=== PATIENT | female | born 1960 | race Caucasian/White ===

== ENCOUNTER 2016-10-13 15:24 | Emergency (ER) | payer OTHER ==
[~2016-10-13] VITALS: Ht 170.2 cm; Wt 65.0 kg
[~2016-10-13 15:24] MED LIST: LORTA5 PO
[2016-10-13 15:26] VITALS: BP 185/128; PULSE 102; RESP 15; TEMP 99; O2SAT 97
--- NOTE | 2016-10-13 15:31 | PD ---
Physical Exam Date Seen by Provider: Oct 13, 2016 Time Seen by Provider: 15:29 Narrative 55 yo female here for evaluation of generalize weakness. History of two admissions in [facility] and found to have pancreatic mass. per patient she takes meds and makes her better but not anymore. PCP sent her here. Has N/V/D. Has abdominal discomfort. Cannot eat much. lost 70 pounds. Going on for since April. Worsen past couple of days. Vitals are stable in triage. Awaiting bed placement. Data Data Last Documented VS Vital Signs Date Time Temp Pulse Resp B/P Pulse Ox O2 Delivery O2 Flow Rate FiO2 10/13/16 15:26 99.0 102 15 185/128 97 MDM Medical Record Reviewed: Yes Supervised Visit with VIANEY: No Mason Mae Oct 13, 2016 15:31
[2016-10-13] MEDS ORDERED: ZOFR8TAB PO (15:53)
[2016-10-13] MEDS ORDERED: OXYC-395 PO (15:53)
[2016-10-13] MEDS ORDERED: PROT40TA PO (15:53)
[2016-10-13] MEDS ORDERED: SODIUM CHLORIDE 0.9% FLUSH 10 ML FLUSH IV FLUSH PRN (16:00)
[2016-10-13] MEDS ORDERED: MORPHINE SULFATE 4 MG/ML INJ IV PUSH ONE (16:00)
[2016-10-13] MEDS ORDERED: ONDANSETRON HCL 4 MG/2 ML VIAL IVP ONE (16:00)
--- NOTE | 2016-10-13 16:23 | RADRPT ---
EXAM DATE/TIME: 10/13/2016 16:06 [facility] COMPARISON: No previous studies available for comparison. INDICATIONS : Epigastric pain for several months. MEDICAL HISTORY : None. SURGICAL HISTORY : None. ENCOUNTER: Initial ACUITY: 4 - 6 months PAIN SCORE: 6/10 LOCATION: Abdomen, upper quadrant. FINDINGS: A single view of the chest demonstrates the lungs to be symmetrically aerated without evidence of mas s, infiltrate or effusion. The cardiomediastinal contours are unremarkable. Osseous structures are intact. CONCLUSION: No acute disease. Gus Oneal MD on October 13, 2016 at 16:20 Board Certified Radiologist. This report was verified electronically.
--- NOTE | 2016-10-13 16:36 | PD ---
Data Data Last Documented VS Vital Signs Date Time Temp Pulse Resp B/P Pulse Ox O2 Delivery O2 Flow Rate FiO2 10/13/16 17:02 18 10/13/16 15:26 99.0 102 185/128 97 Orders Complete Blood Count With Diff (10/13/16 15:51) Comprehensive Metabolic Panel (10/13/16 15:51) Lipase (10/13/16 15:51) Lactic Acid (10/13/16 15:51) Prothrombin Time / Inr (Pt) (10/13/16 15:51) Act Partial Throm Time (Ptt) (10/13/16 15:51) Urinalysis - C+S If Indicated (10/13/16 15:51) Iv Access Insert/Monitor (10/13/16 15:51) Ecg Monitoring (10/13/16 15:51) Oximetry (10/13/16 15:51) Morphine Inj (Morphine Inj) (10/13/16 16:00) Ondansetron Inj (Zofran Inj) (10/13/16 16:00) Sodium Chloride 0.9% Flush (Ns Flush) (10/13/16 16:00) Electrocardiogram (10/13/16 15:51) Chest, Single Ap (10/13/16 15:51) Ct Abd/Pel W/O Iv Contrast (10/13/16 15:51) Labs Laboratory Tests Test 10/13/16 10/13/16 16:15 16:35 Urine Color YELLOW Urine Turbidity CLOUDY Urine pH 7.5 Urine Specific [place] 1.021 Urine Protein TRACE mg/dL Urine Glucose (UA) NEG mg/dL Urine Ketones NEG mg/dL Urine Occult Blood NEG Urine Nitrite NEG Urine Bilirubin NEG Urine Urobilinogen LESS THAN 2.0 MG/DL Urine Leukocyte Esterase TRACE Urine RBC 2 /hpf Urine WBC 3 /hpf Urine Squamous Epithelial 15 /hpf Cells Urine Amorphous Sediment RARE Urine Bacteria RARE /hpf Microscopic Urinalysis Comment CULT NOT INDICATED White Blood Count 7.7 TH/MM3 Red Blood Count 5.10 MIL/MM3 Hemoglobin 16.9 GM/DL Hematocrit 51.1 % Mean Corpuscular Volume 100.1 FL Mean Corpuscular Hemoglobin 33.1 PG Mean Corpuscular Hemoglobin 33.1 % Concent Red Cell Distribution Width 12.9 % Platelet Count 266 TH/MM3 Mean Platelet Volume 8.6 FL Neutrophils (%) (Auto) 74.6 % Lymphocytes (%) (Auto) 13.9 % Monocytes (%) (Auto) 8.1 % Eosinophils (%) (Auto) 0.8 % Basophils (%) (Auto) 2.6 % Neutrophils # (Auto) 5.8 TH/MM3 Lymphocytes # (Auto) 1.1 TH/MM3 Monocytes # (Auto) 0.6 TH/MM3 Eosinophils # (Auto) 0.1 TH/MM3 Basophils # (Auto) 0.2 TH/MM3 CBC Comment DIFF FINAL Differential Comment Prothrombin Time 10.4 SEC Prothromb Time International 0.9 RATIO Ratio Activated Partial 29.2 SEC Thromboplast Time Sodium Level 136 MEQ/L Potassium Level 4.5 MEQ/L Chloride Level 103 MEQ/L Carbon Dioxide Level 27.1 MEQ/L Anion Gap 6 MEQ/L Blood Urea Nitrogen 7 MG/DL Creatinine 0.66 MG/DL Estimat Glomerular Filtration 94 ML/MIN Rate Random Glucose 97 MG/DL Lactic Acid Level 0.7 mmol/L Calcium Level 10.6 MG/DL Total Bilirubin 0.6 MG/DL Aspartate Amino Transf 59 U/L (AST/SGOT) Alanine Aminotransferase 24 U/L (ALT/SGPT) Alkaline Phosphatase 105 U/L Total Protein 10.3 GM/DL Albumin 4.3 GM/DL Lipase 174 U/L MDM Supervised Visit with VIANEY: No Diagnosis Primary Impression: Abdominal pain Patient Instructions: Abdominal Pain (ED), General Instructions Disposition: 01 DISCHARGE HOME Condition: Stable Gus Landeros MD Oct 13, 2016 16:36
[2016-10-13 17:02] VITALS: RESP 18
[2016-10-13 17:26] LABS: AUTOMATED NEUTROPHIL # 5.8 TH/MM3 (1.8-7.7); BASOPHIL # 0.2 TH/MM3 (0-0.2); BASOPHIL % 2.6 % (0.0-2.0); EOSINOPHIL # 0.1 TH/MM3 (0-0.4); EOSINOPHIL % 0.8 % (0.0-4.0); HEMATOCRIT 51.1 % (35.0-46.0); HEMO FLAGS DIFF FINAL; LYMPH % 13.9 % (9.0-44.0); LYMPHOCYTE # 1.1 TH/MM3 (1.0-4.8); MEAN CELL VOLUME 100.1 FL (80.0-100.0); MEAN CORPUSCULAR HEMOGLOBIN 33.1 PG (27.0-34.0); MEAN CORPUSCULAR HGB CONC 33.1 % (32.0-36.0); MONO % 8.1 % (0.0-8.0); NEUT % 74.6 % (16.0-70.0); PLATELET COUNT 266 TH/MM3 (150-450); RED CELL DISTRIBUTION WIDTH 12.9 % (11.6-17.2); WHITE BLOOD COUNT 7.7 TH/MM3 (4.0-11.0)
[2016-10-13 17:29] LABS: BACTERIA, URINE RARE /hpf; BLOOD, URINE NEG (NEG); COMMENT (UR) CULT NOT INDICATED; CULTURE IF INDICATED CULT NOT INDICATED; GLUCOSE,URINE NEG (NEG); KETONE, URINE NEG (NEG); NITRITE,URINE NEG (NEG); PH, URINE 7.5 (5.0-8.5); SQUAMOUS EPITHELIAL CELL URINE 15 /hpf (0-5); URINE COLOR YELLOW (YELLW/STRAW)
--- NOTE | 2016-10-13 17:36 | RADRPT ---
EXAM DATE/TIME: 10/13/2016 17:01 [facility] COMPARISON: CT ABDOMEN & PELVIS W/O CONTRAST, May 25, 2010, 8:22. INDICATIONS : Patient complains of abdominal pain, states she has a pancreatic mass. ORAL CONTRAST: No oral contrast ingested. RADIATION DOSE: 6.18 CTDIvol (mGy) MEDICAL HISTORY : Hypertension. SURGICAL HISTORY : Tubal ligation. Tonsillectomy. ENCOUNTER: Initial ACUITY: 1 day PAIN SCALE: 8/10 LOCATION: Bilateral upper quadrant Abdomen TECHNIQUE: Volumetric scanning of the abdomen and pelvis was performed. Using automated exposure control and adjustment of the mA and/or kV according to patient size, radiation dose was kept as low as reasonably achievable to obtain optimal diagnostic quality images. DICOM format image data is av ailable electronically for review and comparison. FINDINGS: The lung bases are clear. The liver is free of focal defects. The spleen is unremarkable. There is a small 1.4 cm mass projected from the tail of the pancreas. The body of the pancreas is unremarkab le. The adrenal glands appear unremarkable. Right and left kidneys appear normal. Marked vascular calcifications are noted. There is no ascites or adenopathy appreciated. Pelvic contents are unremarkable. Review of bone windows reveals only degenerative changes. CONCLUSION: 1. 1.4 cm isodense mass projected from the tail of the pancreas unchanged from the comparison report of 08/03/2016. 2. I do not see an etiology for the patient's abdominal pain. Cecilio Parkinson MD FACR on October 13, 2016 at 17:22 Board Certified Radiologist. This report was verified electronically.
[2016-10-13 17:39] LABS: APTT (PATIENT) 29.2 SEC (24.3-30.1); INTERNATIONAL NORMALIZED RATIO 0.9 RATIO; PROTHROMBIN TIME - PATIENT 10.4 SEC (9.8-11.6)
[2016-10-13 17:49] LABS: ALKALINE PHOSPHATASE 105 U/L (45-117); ALT (GPT) 24 U/L (10-53); TOTAL BILIRUBIN ADULT 0.6 MG/DL (0.2-1.0)
[2016-10-13 18:07] LABS: ANION GAP 6 MEQ/L (5-15); AST (GOT) 59 U/L (15-37); BICARBONATE 27.1 MEQ/L (21.0-32.0); BLOOD UREA NITROGEN 7 MG/DL (7-18); CHLORIDE 103 MEQ/L (98-107); GLOMERULAR FILTRATION RATE 94 ML/MIN (>89); SODIUM (NA) 136 MEQ/L (136-145)
[2016-10-13 18:09] LABS: POTASSIUM 4.5 MEQ/L (3.5-5.1)
--- NOTE | 2016-10-14 07:57 | EKG ---
Date Performed: 10/13/2016 Time Performed: 17:59:40 PTAGE: 55 years EKG: Sinus rhythm POSSIBLE LEFT ATRIAL ENLARGEMENT BORDERLINE ECG PREVIOUS TRACING : 05/03/2013 08.26 DOCTOR: Varun Moon Interpretating Date/Time 10/14/2016 07:53:13
--- NOTE | 2016-10-16 00:19 | PD ---
HPI Chief Complaint: GI Complaint Time Seen by Provider: 15:44 Travel History International Travel<30 days: No Contact w/Intl Traveler<30days: No Traveled to known affect area: No History of Present Illness HPI Patient is a 55-year-old female presents emerged from with epigastric abdominal pain. She states she was recently diagnosed with a pancreatic mass and states her pain is flared up on her. She states she has not been able to follow-up the primary care physician endorses significant weight loss since May when she was diagnosed. She states she has been able to tolerate by mouth but has been nauseous and vomiting nonbilious and nonbloody. Denies any diarrhea constipation or blood in the stool. States her pain is been gradually getting worsebut she decided to come in here today. Denies any radiation. States pain is severe. PFSH Past Medical History Diminished Hearing: No Hypertension: Yes Respiratory: Yes (COUGH) ?: Not Tubal Ligation: Yes Past Surgical History Gynecologic Surgery: Yes (TUBAL LIGATION) Oral Surgery: Yes (TONSILLECTOMY) Pacemaker: No Thoracic Surgery: Yes Other Surgery: Yes Social History Alcohol Use: Yes (SOCIAL) Tobacco Use: Yes (1 PACK A DAY FOR 20 YEARS) Substance Use: No Allergies-Medications (Allergen,Severity, Reaction): Coded Allergies: Contrast Media (Verified Allergy, Severe, "BLACKED OUT", 10/13/16) Motrin (Verified Allergy, Severe, Tachycardia, 10/13/16) Reported Meds & Prescriptions Reported Meds & Active Scripts Active Reported Oxycodone (Oxycodone HCl) 10 Mg Tab 10 Mg PO Q6H PRN Zofran (Ondansetron HCl) 8 Mg Tab 8 Mg PO TID Protonix (Pantoprazole Sodium) 40 Mg Tab 40 Mg PO DAILY Review of Systems Except as stated in HPI: all other systems reviewed are Neg Physical Exam Narrative GENERAL: Well-developed well-nourished no apparent distress. SKIN: Focused skin assessment warm/dry. HEAD: Atraumatic. Normocephalic. EYES: Pupils equal and round. No scleral icterus. No injection or drainage. ENT: No nasal bleeding or discharge. Mucous membranes pink and moist. NECK: Trachea midline. No JVD. CARDIOVASCULAR: Regular rate and rhythm. No murmur appreciated. RESPIRATORY: No accessory muscle use. Clear to auscultation. Breath sounds equal bilaterally. GASTROINTESTINAL: Abdomen soft, minimally tender in the epigastric area, nondistended. Hepatic and splenic margins not palpable. No rebound no percussive tenderness. MUSCULOSKELETAL: No obvious deformities. No clubbing. No cyanosis. No edema. NEUROLOGICAL: Awake and alert. No obvious cranial nerve deficits. Motor grossly within normal limits. Normal speech. PSYCHIATRIC: Appropriate mood and affect; insight and judgment normal. Data Data Last Documented VS Vital Signs Date Time Temp Pulse Resp B/P Pulse Ox O2 Delivery O2 Flow Rate FiO2 10/13/16 17:02 18 10/13/16 15:26 99.0 102 185/128 97 Orders Complete Blood Count With Diff (10/13/16 15:51) Comprehensive Metabolic Panel (10/13/16 15:51) Lipase (10/13/16 15:51) Lactic Acid (10/13/16 15:51) Prothrombin Time / Inr (Pt) (10/13/16 15:51) Act Partial Throm Time (Ptt) (10/13/16 15:51) Urinalysis - C+S If Indicated (10/13/16 15:51) Iv Access Insert/Monitor (10/13/16 15:51) Ecg Monitoring (10/13/16 15:51) Oximetry (10/13/16 15:51) Morphine Inj (Morphine Inj) (10/13/16 16:00) Ondansetron Inj (Zofran Inj) (10/13/16 16:00) Sodium Chloride 0.9% Flush (Ns Flush) (10/13/16 16:00) Electrocardiogram (10/13/16 15:51) Chest, Single Ap (10/13/16 15:51) Ct Abd/Pel W/O Iv Contrast (10/13/16 15:51) Labs Laboratory Tests Test 10/13/16 10/13/16 16:15 16:35 Urine Color YELLOW Urine Turbidity CLOUDY Urine pH 7.5 Urine Specific [place] 1.021 Urine Protein TRACE mg/dL Urine Glucose (UA) NEG mg/dL Urine Ketones NEG mg/dL Urine Occult Blood NEG Urine Nitrite NEG Urine Bilirubin NEG Urine Urobilinogen LESS THAN 2.0 MG/DL Urine Leukocyte Esterase TRACE Urine RBC 2 /hpf Urine WBC 3 /hpf Urine Squamous Epithelial 15 /hpf Cells Urine Amorphous Sediment RARE Urine Bacteria RARE /hpf Microscopic Urinalysis Comment CULT NOT INDICATED White Blood Count 7.7 TH/MM3 Red Blood Count 5.10 MIL/MM3 Hemoglobin 16.9 GM/DL Hematocrit 51.1 % Mean Corpuscular Volume 100.1 FL Mean Corpuscular Hemoglobin 33.1 PG Mean Corpuscular Hemoglobin 33.1 % Concent Red Cell Distribution Width 12.9 % Platelet Count 266 TH/MM3 Mean Platelet Volume 8.6 FL Neutrophils (%) (Auto) 74.6 % Lymphocytes (%) (Auto) 13.9 % Monocytes (%) (Auto) 8.1 % Eosinophils (%) (Auto) 0.8 % Basophils (%) (Auto) 2.6 % Neutrophils # (Auto) 5.8 TH/MM3 Lymphocytes # (Auto) 1.1 TH/MM3 Monocytes # (Auto) 0.6 TH/MM3 Eosinophils # (Auto) 0.1 TH/MM3 Basophils # (Auto) 0.2 TH/MM3 CBC Comment DIFF FINAL Differential Comment Prothrombin Time 10.4 SEC Prothromb Time International 0.9 RATIO Ratio Activated Partial 29.2 SEC Thromboplast Time Sodium Level 136 MEQ/L Potassium Level 4.5 MEQ/L Chloride Level 103 MEQ/L Carbon Dioxide Level 27.1 MEQ/L Anion Gap 6 MEQ/L Blood Urea Nitrogen 7 MG/DL Creatinine 0.66 MG/DL Estimat Glomerular Filtration 94 ML/MIN Rate Random Glucose 97 MG/DL Lactic Acid Level 0.7 mmol/L Calcium Level 10.6 MG/DL Total Bilirubin 0.6 MG/DL Aspartate Amino Transf 59 U/L (AST/SGOT) Alanine Aminotransferase 24 U/L (ALT/SGPT) Alkaline Phosphatase 105 U/L Total Protein 10.3 GM/DL Albumin 4.3 GM/DL Lipase 174 U/L [facility] Medical Decision Making Medical Screen Exam Complete: Yes Emergency Medical Condition: Yes Differential Diagnosis Biliary obstruction, pancreatic mass and pancreatitis, gastritis, gastroenteritis, opiate dependence. Narrative Course Patient was roomed emergency department, she was given pain medicine. She'll labs look CBC CMP and lipase were negative. CAT scan of her abdomen shows an unchanged pancreatic mass in size. Last 24 hours Impressions Chest X-Ray 10/13/16 [id number] Signed Impressions: Service Date/Time: Thursday, October 13, 2016 16:06 - CONCLUSION: No acute disease. Gus Oneal MD Abdomen/Pelvis CT 10/13/16 [id number] Signed Impressions: Service Date/Time: Thursday, October 13, 2016 17:01 - CONCLUSION: 1. 1.4 cm isodense mass projected from the tail of the pancreas unchanged from the comparison report of 08/03/2016. 2. I do not see an etiology for the patient' s abdominal pain. Cecilio Parkinson MD FACR This is discussed the patient recommended following up the [place] [facility]. She is feeling better and stable for discharge at this time. Diagnosis Primary Impression: Abdominal pain Patient Instructions: General Instructions, Abdominal Pain (ED) Departure Forms: Tests/Procedures Disposition: DISCHARGE HOME Condition: Stable Gus Landeros MD Oct 16, 2016 00:19
== END 2016-10-13 19:45 | disposition home or self-care (01) ==
LOC: NEPE 15:24
DX: R10.13 Epigastric pain (principal); I10 Essential (primary) hypertension; F17.200 Nicotine dependence, unspecified, uncomplicated; Z79.899 Other long term (current) drug therapy
CPT/HCPCS: 71010; 74176; 80053; 81001; 83605; 83690; 85025; 85610; 85730; 93005; 96374; 96375; 99285; J2270; J2405

== ENCOUNTER 2017-04-04 10:17 | Observation (INO) | payer MEDICAID, OTHER ==
[~2017-04-04] VITALS: Ht 170.2 cm; Wt 65.0 kg
[~2017-04-04 10:17] MED LIST changes: -LORTA5 PO; +OXYC-395 PO; +PROT40TA PO; +ZOFR8TAB PO
[2017-04-04 10:19] VITALS: BP 170/87; PULSE 77; RESP 16; TEMP 98.4; O2SAT 95
[2017-04-04] MEDS ORDERED: SODIUM CHLOR 0.9% 1000 ML INJ 1,000 ML IV SCH (11:01)
[2017-04-04] MEDS ORDERED: MORPHINE SULFATE 4 MG/ML INJ IV PUSH ONE (11:15)
[2017-04-04] MEDS ORDERED: PANTOPRAZOLE SODIUM 40 MG VIAL IVP ONE (11:15)
[2017-04-04] MEDS ORDERED: METOCLOPRAMIDE HCL 10 MG/2 ML VIAL IV PUSH ONE (11:15)
--- NOTE | 2017-04-04 11:19 | PD ---
HPI Chief Complaint: GI Complaint Time Seen by Provider: 10:53 Travel History International Travel<30 days: No Contact w/Intl Traveler<30days: No Traveled to known affect area: No History of Present Illness HPI 56-year-old female presents to emergency department with abdominal pain with hematemesis since Tuesday. Patient states that she has had 6-7 episodes of bright red blood with dark bile in her vomitus this morning that has been refractory to 2 doses of Zofran which is why she came in today. Patient says that she has diffuse abdominal pain without radiation. Nothing makes her pain better or worse. Patient states she has had 1 episode of nonbloody diarrhea today. Denies fever, cough, urinary complaints. States she feels short of breath. 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 Patient states that she was discharged yesterday from [facility] after a three-day stay for similar complaints. Patient has not followed up endocrinology secondary to insurance issues. Patient's primary Care physician is Dr. Cota. Patient takes no medication except for Zofran and denies any other medical issues. Patient had a tubal ligation more than 10 years ago but no other abdominal surgeries. Pt has been taking oxycodone 10mg TID for her abdominal pain. 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) Respiratory: Yes (COUGH) Ulcer: Yes ?: Not Tubal Ligation: Yes Past Surgical History Gynecologic Surgery: Yes (TUBAL LIGATION) Oral Surgery: Yes (TONSILLECTOMY) Pacemaker: No Thoracic Surgery: Yes Other Surgery: Yes (TUBAL LIGATION) Social History Alcohol Use: No Tobacco Use: Yes Substance Use: No Allergies-Medications (Allergen,Severity, Reaction): Coded Allergies: diatrizoate meglumine (Unverified Allergy, Severe, "BLACKED OUT", 11/30/16) gadobenic acid (Unverified Allergy, Severe, "BLACKED OUT", 11/30/16) gadodiamide (Unverified Allergy, Severe, "BLACKED OUT", 11/30/16) gadoteridol (Unverified Allergy, Severe, "BLACKED OUT", 11/30/16) ibuprofen (Unverified Allergy, Severe, Tachycardia, 11/30/16) iodixanol (Unverified Allergy, Severe, "BLACKED OUT", 11/30/16) iohexol (Unverified Allergy, Severe, "BLACKED OUT", 11/30/16) Reported Meds & Prescriptions Reported Meds & Active Scripts Active Reported Ativan (Lorazepam) 0.5 Mg Tab 0.5 Mg PO Q8H PRN Ranitidine (Ranitidine HCl) 150 Mg Cap 150 Mg PO BID Oxycodone (Oxycodone HCl) 10 Mg Tab 10 Mg PO Q6H PRN Zofran (Ondansetron HCl) 8 Mg Tab 8 Mg PO TID Protonix (Pantoprazole Sodium) 40 Mg Tab 40 Mg PO DAILY Review of Systems Except as stated in HPI: all other systems reviewed are Neg Physical Exam Narrative GENERAL: Well-developed well-nourished in moderate distress, anxious SKIN: Focused skin assessment warm/dry. HEAD: Atraumatic. Normocephalic. EYES: Pupils equal and round. No scleral icterus. Mildly pale conjunctiva ENT: No nasal bleeding or discharge. Mucous membranes pink and moist. Posterior pharynx appears mildly erythematous without tonsil hypertrophy or exudate. NECK: Trachea midline. No JVD. No lymphadenopathy CARDIOVASCULAR: Regular rate and rhythm. No murmur appreciated. RESPIRATORY: No accessory muscle use. Clear to auscultation. Breath sounds equal bilaterally. GASTROINTESTINAL: Abdomen distended, diffusely tender. No organomegaly noted. No CVA tenderness. MUSCULOSKELETAL: No obvious deformities. No clubbing. No cyanosis. No edema. NEUROLOGICAL: Awake and alert. No obvious cranial nerve deficits. Motor grossly within normal limits. Normal speech. PSYCHIATRIC: Appropriate mood and affect; insight and judgment normal. Data Data Last Documented VS Vital Signs Date Time Temp Pulse Resp B/P (MAP) Pulse Ox O2 Delivery O2 Flow Rate FiO2 04/04/17 13:52 84 17 140/90 (107) 100 04/04/17 12:57 Room Air 04/04/17 10:19 98.4 Orders Orders Complete Blood Count With Diff (04/04/17 11:01) Comprehensive Metabolic Panel (04/04/17 11:01) Lipase (04/04/17 11:01) Prothrombin Time / Inr (Pt) (04/04/17 11:01) Act Partial Throm Time (Ptt) (04/04/17 11:01) Urinalysis - C+S If Indicated (04/04/17 11:01) Oximetry (04/04/17 11:01) NPO (04/04/17 11:01) Morphine Inj (Morphine Inj) (04/04/17 11:15) Pantoprazole Inj (Protonix Inj) (04/04/17 11:15) Sodium Chlor 0.9% 1000 Ml Inj (Ns 1000 M (04/04/17 11:01) Electrocardiogram (04/04/17 11:01) Metoclopramide Inj (Reglan Inj) (04/04/17 11:15) Ct Abdomen W/O Iv Contrast (04/04/17 ) Chest, Single Ap (04/04/17 ) Hydromorphone Pf Inj (Dilaudid Pf Inj) (04/04/17 13:30) Ondansetron Inj (Zofran Inj) (04/04/17 13:30) Lorazepam (Ativan) (04/04/17 14:00) Pantoprazole (Protonix) (04/04/17 14:00) Place In Observation (04/04/17 ) Vital Signs (Adult) Q4H (04/04/17 13:56) Activity Oob With Assistance (04/04/17 13:56) Intake + Output DARREL.QSHIFT (04/04/17 13:56) Diet Npo (04/04/17 Lunch) Sodium Chlor 0.9% 1000 Ml Inj (Ns 1000 M (04/04/17 13:56) Sodium Chloride 0.9% Flush (Ns Flush) (04/04/17 14:00) Sodium Chloride 0.9% Flush (Ns Flush) (04/04/17 21:00) Acetaminophen (Tylenol) (04/04/17 14:00) Ondansetron Inj (Zofran Inj) (04/04/17 14:00) Comprehensive Metabolic Panel (04/05/17 06:00) Lipase (04/05/17 06:00) Scd Bilateral/Knee High DARREL.BID (04/04/17 13:56) Dhiraj Bilateral/Knee High DARREL.QSHIFT (04/04/17 13:56) Acetaminophen (Tylenol) (04/04/17 14:00) Acetamin-Hydrocod 325-10 Mg ([place] 10-32 (04/04/17 14:00) Oxycodone-Acetamin 5-325 Mg (Percocet (04/04/17 14:00) Morphine Inj (Morphine Inj) (04/04/17 14:00) Naloxone Inj (Narcan Inj) (04/04/17 14:00) Docusate Sodium-Senna (Alicia-Colace) (04/04/17 21:00) Admit Order (Ed Use Only) (04/04/17 ) Labs Laboratory Tests Test 04/04/17 11:40 04/04/17 11:50 White Blood Count 6.3 TH/MM3 Red Blood Count 4.45 MIL/MM3 Hemoglobin 15.1 GM/DL Hematocrit 45.0 % Mean Corpuscular Volume 101.2 FL Mean Corpuscular Hemoglobin 34.0 PG Mean Corpuscular Hemoglobin Concent 33.6 % Red Cell Distribution Width 14.6 % Platelet Count 198 TH/MM3 Mean Platelet Volume 8.8 FL Neutrophils (%) (Auto) 78.0 % Lymphocytes (%) (Auto) 10.5 % Monocytes (%) (Auto) 10.5 % Eosinophils (%) (Auto) 0.1 % Basophils (%) (Auto) 0.9 % Neutrophils # (Auto) 4.9 TH/MM3 Lymphocytes # (Auto) 0.7 TH/MM3 Monocytes # (Auto) 0.7 TH/MM3 Eosinophils # (Auto) 0.0 TH/MM3 Basophils # (Auto) 0.1 TH/MM3 CBC Comment DIFF FINAL Differential Comment Prothrombin Time 10.2 SEC Prothromb Time International Ratio 1.0 RATIO Activated Partial Thromboplast Time 25.1 SEC Blood Urea Nitrogen 8 MG/DL Creatinine 0.74 MG/DL Random Glucose 115 MG/DL Total Protein 8.4 GM/DL Albumin 4.0 GM/DL Calcium Level 9.6 MG/DL Alkaline Phosphatase 89 U/L Aspartate Amino Transf (AST/SGOT) 58 U/L Alanine Aminotransferase (ALT/SGPT) 61 U/L Total Bilirubin 0.9 MG/DL Sodium Level 140 MEQ/L Potassium Level 3.2 MEQ/L Chloride Level 106 MEQ/L Carbon Dioxide Level 24.5 MEQ/L Anion Gap 10 MEQ/L Estimat Glomerular Filtration Rate 82 ML/MIN Lipase 270 U/L Urine Color YELLOW Urine Turbidity HAZY Urine pH 7.0 Urine Specific [place] 1.010 Urine Protein NEG mg/dL Urine Glucose (UA) NEG mg/dL Urine Ketones NEG mg/dL Urine Occult Blood NEG Urine Nitrite NEG Urine Bilirubin NEG Urine Urobilinogen 2.0 MG/DL Urine Leukocyte Esterase NEG Urine RBC LESS THAN 1 /hpf Urine WBC 1 /hpf Urine Squamous Epithelial Cells 4 /hpf Urine Amorphous Sediment FEW Urine Bacteria RARE /hpf Urine Mucus FEW /lpf Microscopic Urinalysis Comment CULT NOT INDICATED MDM Medical Decision Making Medical Screen Exam Complete: Yes Emergency Medical Condition: Yes Differential Diagnosis pancreatitis, gastric ulcers, duodenal ulcer, hematemesis Narrative Course 56-year-old female presents to emergency department with a history or gastric ulcers and pancreatitis presnts to the ED with abdominal pain with hematemesis since Tuesday. Patient states that she has had 6-7 episodes of bright red blood with dark bile in her vomitus this morning that has been refractory to 2 doses of Zofran which is why she came in today. Patient says that she has diffuse abdominal pain without radiation. Nothing makes her pain better or worse. Patient states she has had 1 episode of nonbloody diarrhea today. Denies fever, cough, urinary complaints. States she feels short of breath. 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 Patient states that she was discharged yesterday from [facility] after a three- day stay for similar complaints. Patient has not followed up endocrinology secondary to insurance issues. Patient's primary Care physician is Dr. Cota. Patient takes no medication except for Zofran and denies any other medical issues. Patient had a tubal ligation more than 10 years ago but no other abdominal surgeries. Physical exam significant for diffuse abdominal pain with guarding (voluntary vs involuntary) Laboratory Tests Test 04/04/17 11:40 04/04/17 11:50 White Blood Count 6.3 TH/MM3 Red Blood Count 4.45 MIL/MM3 Hemoglobin 15.1 GM/DL Hematocrit 45.0 % Mean Corpuscular Volume 101.2 FL Mean Corpuscular Hemoglobin 34.0 PG Mean Corpuscular Hemoglobin Concent 33.6 % Red Cell Distribution Width 14.6 % Platelet Count 198 TH/MM3 Mean Platelet Volume 8.8 FL Neutrophils (%) (Auto) 78.0 % Lymphocytes (%) (Auto) 10.5 % Monocytes (%) (Auto) 10.5 % Eosinophils (%) (Auto) 0.1 % Basophils (%) (Auto) 0.9 % Neutrophils # (Auto) 4.9 TH/MM3 Lymphocytes # (Auto) 0.7 TH/MM3 Monocytes # (Auto) 0.7 TH/MM3 Eosinophils # (Auto) 0.0 TH/MM3 Basophils # (Auto) 0.1 TH/MM3 CBC Comment DIFF FINAL Differential Comment Prothrombin Time 10.2 SEC Prothromb Time International Ratio 1.0 RATIO Activated Partial Thromboplast Time 25.1 SEC Blood Urea Nitrogen 8 MG/DL Creatinine 0.74 MG/DL Random Glucose 115 MG/DL Total Protein 8.4 GM/DL Albumin 4.0 GM/DL Calcium Level 9.6 MG/DL Alkaline Phosphatase 89 U/L Aspartate Amino Transf (AST/SGOT) 58 U/L Alanine Aminotransferase (ALT/SGPT) 61 U/L Total Bilirubin 0.9 MG/DL Sodium Level 140 MEQ/L Potassium Level 3.2 MEQ/L Chloride Level 106 MEQ/L Carbon Dioxide Level 24.5 MEQ/L Anion Gap 10 MEQ/L Estimat Glomerular Filtration Rate 82 ML/MIN Lipase 270 U/L Urine Color YELLOW Urine Turbidity HAZY Urine pH 7.0 Urine Specific [place] 1.010 Urine Protein NEG mg/dL Urine Glucose (UA) NEG mg/dL Urine Ketones NEG mg/dL Urine Occult Blood NEG Urine Nitrite NEG Urine Bilirubin NEG Urine Urobilinogen 2.0 MG/DL Urine Leukocyte Esterase NEG Urine RBC LESS THAN 1 /hpf Urine WBC 1 /hpf Urine Squamous Epithelial Cells 4 /hpf Urine Amorphous Sediment FEW Urine Bacteria RARE /hpf Urine Mucus FEW /lpf Microscopic Urinalysis Comment CULT NOT INDICATED Last Impressions Chest X-Ray 04/04/17 0000 Signed Impressions: Service Date/Time: Tuesday, April 04, 2017 12:00 - CONCLUSION: No acute disease. Cecilio Parkinson MD FACR Abdomen CT 04/04/17 0000 Signed Impressions: Service Date/Time: Tuesday, April 04, 2017 12:15 - CONCLUSION: Small 1.3 cm mass in the spleen stable in the interval. Normal bowel gas pattern I do not see on this patient's nausea and vomiting. Cecilio Parkinson MD FACR Morphine 4mg, 1000ml NS IVF. Patient states her pain continues to be 10/10 after morphine 4 mg. Patient does take oxycodone 10 mg 2-3 times daily (for 6 months) I decided to administer 2 mg Dilaudid IV for her pain. Vital signs are stable. Patient continues to be very anxious and in pain. Patient states she has vomited twice since being in the emergency department, however I was unable to evaluate these contents. We attempted to obtain records from [facility] multiple times without success. Patient will be admitted to observation for subjective hematemesis and intractable abdominal pain with nausea. Diagnosis Primary Impression: Abdominal pain Qualified Codes: R10.84 - Generalized abdominal pain Additional Impressions: Pancreatic cyst Hematemesis with nausea Gastritis Qualified Codes: K29.01 - Acute gastritis with bleeding Admitting Information Admitting Physician Requests: Observation Condition: Stable Mary Pedroza Apr 04, 2017 11:19
[2017-04-04 11:40] VITALS: BP 199/98; PULSE 91; RESP 17; O2SAT 95
[2017-04-04 12:18] LABS: AUTOMATED NEUTROPHIL # 4.9 TH/MM3 (1.8-7.7); BASOPHIL # 0.1 TH/MM3 (0-0.2); BASOPHIL % 0.9 % (0.0-2.0); EOSINOPHIL % 0.1 % (0.0-4.0); HEMO FLAGS DIFF FINAL; LYMPH % 10.5 % (9.0-44.0); LYMPHOCYTE # 0.7 TH/MM3 (1.0-4.8); MEAN CELL VOLUME 101.2 FL (80.0-100.0); MEAN CORPUSCULAR HGB CONC 33.6 % (32.0-36.0); MONO % 10.5 % (0.0-8.0); PLATELET COUNT 198 TH/MM3 (150-450); RED BLOOD COUNT 4.45 MIL/MM3 (4.00-5.30); RED CELL DISTRIBUTION WIDTH 14.6 % (11.6-17.2); WHITE BLOOD COUNT 6.3 TH/MM3 (4.0-11.0)
[2017-04-04 12:26] LABS: APTT (PATIENT) 25.1 SEC (24.3-30.1); PROTHROMBIN TIME - PATIENT 10.2 SEC (9.8-11.6)
[2017-04-04 12:40] LABS: BACTERIA, URINE RARE /hpf; BLOOD, URINE NEG (NEG); COMMENT (UR) CULT NOT INDICATED; CULTURE IF INDICATED CULT NOT INDICATED; GLUCOSE,URINE NEG (NEG); KETONE, URINE NEG (NEG); MUCUS URINE FEW /lpf (OCC); NITRITE,URINE NEG (NEG); SQUAMOUS EPITHELIAL CELL URINE 4 /hpf (0-5); URINE COLOR YELLOW (YELLW/STRAW)
[2017-04-04 12:42] LABS: ALKALINE PHOSPHATASE 89 U/L (45-117); ALT (GPT) 61 U/L (10-53); ANION GAP 10 MEQ/L (5-15); AST (GOT) 58 U/L (15-37); BICARBONATE 24.5 MEQ/L (21.0-32.0); BLOOD UREA NITROGEN 8 MG/DL (7-18); CHLORIDE 106 MEQ/L (98-107); GLOMERULAR FILTRATION RATE 82 ML/MIN (>89); POTASSIUM 3.2 MEQ/L (3.5-5.1); SODIUM (NA) 140 MEQ/L (136-145); TOTAL BILIRUBIN ADULT 0.9 MG/DL (0.2-1.0)
--- NOTE | 2017-04-04 12:44 | RADRPT ---
EXAM DATE/TIME: 04/04/2017 12:00 [facility] COMPARISON: CHEST SINGLE AP, October 13, 2016, 16:06. INDICATIONS : Nausea and vomiting. MEDICAL HISTORY : Hypertension. Carcinoma, pancreas. Smoker. SURGICAL HISTORY : None. ENCOUNTER: Initial ACUITY: 2 days PAIN SCORE: 8/10 LOCATION: chest midline. FINDINGS: A single view of the chest demonstrates the lungs to be symmetrically aerated without evidence of mas s, infiltrate or effusion. The cardiomediastinal contours are unremarkable. Osseous structures are intact. CONCLUSION: No acute disease. Cecilio Parkinson MD FACR on April 04, 2017 at 12:41 Board Certified Radiologist. This report was verified electronically.
--- NOTE | 2017-04-04 12:47 | RADRPT ---
EXAM DATE/TIME: 04/04/2017 12:15 [facility] COMPARISON: CT ABDOMEN & PELVIS W/O CONTRAST, October 13, 2016, 17:01. EXTERNAL COMPARISON : [facility], INDICATIONS : History of pancreatic mass,nausea and vomiting for one week ORAL CONTRAST: No oral contrast ingested. RADIATION DOSE: 6.75 CTDIvol (mGy) MEDICAL HISTORY : Hypertension. Ulcers. Tumor on pancreas SURGICAL HISTORY : Tubal ligation. ENCOUNTER: Initial ACUITY: 1 week PAIN SCALE: 8/10 LOCATION: Abdomen TECHNIQUE: Volumetric scanning of the abdomen was performed. Using automated exposure control and adjustment of the mA and/or kV according to patient size, radiation dose was kept as low as reasonably achievable to obtain optimal diagnostic quality images. DICOM format image data is available electronically for review and comparison. FINDINGS: LOWER LUNGS: The visualized lower lungs are clear. LIVER: Homogeneous density without lesion. There is no dilation of the biliary tree. No calcified gallston es. SPLEEN: Normal size without lesion. PANCREAS: Small 1.3 cm mass tail the spleen stable in the interval. KIDNEYS: Tiny 1 mm stone lower pole left kidney nuclear comparison study There are no stones on the right ADRENAL GLANDS: Within normal limits. AORTA/RETROPERITONEAL: There is no aneurysm or lymphadenopathy. BOWEL/MESENTERY: The stomach and visualized small and large bowel demonstrate no abnormality. MUSCULOSKELETAL: Within normal limits for patient age. CONCLUSION: Small 1.3 cm mass in the spleen stable in the interval. Normal bowel gas pattern I do not see on this patient's nausea and vomiting. Cecilio Parkinson MD FACR on April 04, 2017 at 12:42 Board Certified Radiologist. This report was verified electronically.
[2017-04-04 12:57] VITALS: BP 155/95; PULSE 78; RESP 17; O2SAT 98
[2017-04-04] MEDS ORDERED: HYDROmorphone HCL PF 2 MG/ML VIAL IV PUSH ONE (13:30)
[2017-04-04] MEDS ORDERED: ONDANSETRON HCL 4 MG/2 ML VIAL IV PUSH ONE (13:30)
--- NOTE | 2017-04-04 13:30 | PD ---
Physical Exam Date Seen by Provider: Apr 04, 2017 Narrative This patient presents with epigastric pain associated with vomiting and hematemesis. Data Data Last Documented VS Vital Signs Date Time Temp Pulse Resp B/P (MAP) Pulse Ox O2 Delivery O2 Flow Rate FiO2 04/04/17 12:57 78 17 155/95 (115) 98 Room Air 04/04/17 10:19 98.4 Orders Orders Complete Blood Count With Diff (04/04/17 11:01) Comprehensive Metabolic Panel (04/04/17 11:01) Lipase (04/04/17 11:01) Prothrombin Time / Inr (Pt) (04/04/17 11:01) Act Partial Throm Time (Ptt) (04/04/17 11:01) Urinalysis - C+S If Indicated (04/04/17 11:01) Oximetry (04/04/17 11:01) NPO (04/04/17 11:01) Morphine Inj (Morphine Inj) (04/04/17 11:15) Pantoprazole Inj (Protonix Inj) (04/04/17 11:15) Sodium Chlor 0.9% 1000 Ml Inj (Ns 1000 M (04/04/17 11:01) Electrocardiogram (04/04/17 11:01) Metoclopramide Inj (Reglan Inj) (04/04/17 11:15) Ct Abdomen W/O Iv Contrast (04/04/17 ) Chest, Single Ap (04/04/17 ) Hydromorphone Pf Inj (Dilaudid Pf Inj) (04/04/17 13:30) Ondansetron Inj (Zofran Inj) (04/04/17 13:30) Labs Laboratory Tests Test 04/04/17 11:40 04/04/17 11:50 White Blood Count 6.3 TH/MM3 Red Blood Count 4.45 MIL/MM3 Hemoglobin 15.1 GM/DL Hematocrit 45.0 % Mean Corpuscular Volume 101.2 FL Mean Corpuscular Hemoglobin 34.0 PG Mean Corpuscular Hemoglobin Concent 33.6 % Red Cell Distribution Width 14.6 % Platelet Count 198 TH/MM3 Mean Platelet Volume 8.8 FL Neutrophils (%) (Auto) 78.0 % Lymphocytes (%) (Auto) 10.5 % Monocytes (%) (Auto) 10.5 % Eosinophils (%) (Auto) 0.1 % Basophils (%) (Auto) 0.9 % Neutrophils # (Auto) 4.9 TH/MM3 Lymphocytes # (Auto) 0.7 TH/MM3 Monocytes # (Auto) 0.7 TH/MM3 Eosinophils # (Auto) 0.0 TH/MM3 Basophils # (Auto) 0.1 TH/MM3 CBC Comment DIFF FINAL Differential Comment Prothrombin Time 10.2 SEC Prothromb Time International Ratio 1.0 RATIO Activated Partial Thromboplast Time 25.1 SEC Blood Urea Nitrogen 8 MG/DL Creatinine 0.74 MG/DL Random Glucose 115 MG/DL Total Protein 8.4 GM/DL Albumin 4.0 GM/DL Calcium Level 9.6 MG/DL Alkaline Phosphatase 89 U/L Aspartate Amino Transf (AST/SGOT) 58 U/L Alanine Aminotransferase (ALT/SGPT) 61 U/L Total Bilirubin 0.9 MG/DL Sodium Level 140 MEQ/L Potassium Level 3.2 MEQ/L Chloride Level 106 MEQ/L Carbon Dioxide Level 24.5 MEQ/L Anion Gap 10 MEQ/L Estimat Glomerular Filtration Rate 82 ML/MIN Lipase 270 U/L Urine Color YELLOW Urine Turbidity HAZY Urine pH 7.0 Urine Specific [place] 1.010 Urine Protein NEG mg/dL Urine Glucose (UA) NEG mg/dL Urine Ketones NEG mg/dL Urine Occult Blood NEG Urine Nitrite NEG Urine Bilirubin NEG Urine Urobilinogen 2.0 MG/DL Urine Leukocyte Esterase NEG Urine RBC LESS THAN 1 /hpf Urine WBC 1 /hpf Urine Squamous Epithelial Cells 4 /hpf Urine Amorphous Sediment FEW Urine Bacteria RARE /hpf Urine Mucus FEW /lpf Microscopic Urinalysis Comment CULT NOT INDICATED MDM Supervised Visit with VIANEY: Yes Narrative Course I, Dr. Chung, have reviewed the advance practice practitioner's documentation and am in agreement, met with the patient face to face, made the diagnosis, and the medical decision making was done by me. *My assessment and Findings: Patient's abdomen is soft with epigastric tenderness. She is hemodynamically stable. She has had no hematemesis here in the department. CBC & BMP Diagram 04/04/17 11:40 Total Protein 8.4 H, Albumin 4.0, Calcium Level 9.6, Alkaline Phosphatase 89, Aspartate Amino Transf (AST/SGOT) 58 H, Alanine Aminotransferase (ALT/SGPT) 61 H , Total Bilirubin 0.9 Last Impressions Chest X-Ray 04/04/17 0000 Signed Impressions: Service Date/Time: Tuesday, April 04, 2017 12:00 - CONCLUSION: No acute disease. Cecilio Parkinson MD FACR Abdomen CT 04/04/17 0000 Signed Impressions: Service Date/Time: Tuesday, April 04, 2017 12:15 - CONCLUSION: Small 1.3 cm mass in the spleen stable in the interval. Normal bowel gas pattern I do not see on this patient's nausea and vomiting. Cecilio Parkinson MD FACR She will be admitted to [facility] for further evaluation of her reported hematemesis. Please see Mary Pedroza PA-C's note for further details, lab and radiology results, final diagnosis and disposition. Diagnosis Primary Impression: Abdominal pain Qualified Codes: R10.84 - Generalized abdominal pain Additional Impressions: Gastritis Qualified Codes: K29.01 - Acute gastritis with bleeding Pancreatic cyst Hematemesis with nausea Condition: Stable Juani Chung MD Apr 04, 2017 13:30
[2017-04-04] MEDS ORDERED: LORA-392 PO (13:34)
[2017-04-04] MEDS ORDERED: RANI150C PO (13:34)
[2017-04-04 13:52] VITALS: BP 140/90; PULSE 84; RESP 17; O2SAT 100
[2017-04-04] MEDS ORDERED: NALOXONE HCL 0.4 MG/ML AMP IV PUSH PRN (14:00)
[2017-04-04] MEDS ORDERED: PANTOPRAZOLE SOD 40 MG DELAYED RELEASE TAB PO SCH (14:00)
[2017-04-04] MEDS ORDERED: ACETAMINOPHEN/HYDROcodone 325 MG/10 MG TAB PO PRN (14:00)
[2017-04-04] MEDS ORDERED: ACETAMINOPHEN 325 MG TAB PO PRN ×2 (14:00)
[2017-04-04] MEDS ORDERED: oxyCODONE/ACETAMINOPHEN 5 MG/325 MG TAB PO PRN (14:00)
[2017-04-04] MEDS ORDERED: SODIUM CHLORIDE 0.9% FLUSH 10 ML FLUSH IV FLUSH PRN (14:00)
[2017-04-04 15:54] VITALS: BP 150/87; PULSE 79; RESP 18; TEMP 98.4; O2SAT 95
[2017-04-04] MEDS: SODIUM CHLOR 0.9% 1000 ML INJ 1,000 ML IV SCH (16:22)
[2017-04-04] MEDS ORDERED: ENALAPRILAT 1.25 MG/ML VIAL IV PUSH PRN (16:45)
--- NOTE | 2017-04-04 16:45 | HHI.HP ---
HPI Service [facility] Primary Care Physician Arthur Mazariegos, DO Admission Diagnosis gastritis, hematemesis, intractable abd pain Diagnoses: Chief Complaint: Abdominal pain, vomiting blood Travel History International Travel<30 Days: No Contact w/Intl Traveler <30 Da: No Traveled to Known Affected Are: No History of Present Illness The patient is a 56-year-old female with a past medical history of pancreatitis , peptic ulcer disease and pancreatic mass was presented to the hospital with reports of vomiting blood at home and intractable abdominal pain. The patient says in May she was diagnosed with a tumor on her pancreas and she has not been able to get a biopsy on that. She says that she just got insurance March 18 and will start working on having that biopsied. She says that she is always nauseous and she always has abdominal pain. She says her abdominal pain is severe and located in the upper abdomen and near her pancreas. She says it is mostly on the left side. She says she always has nausea but she has never vomited blood before. She describes the vomitus as bilious with blood streaked in it. She endorses a 90 pound weight loss over the past year. She says she has a history of 4 ulcers. She takes Protonix and ranitidine for that. She does have a administrative liaison she follows up with. She does not drink coffee. She does drink alcohol occasionally. She endorses chills. She says over the past 7-10 days she has had temperature swings from 102 to 96. She says the last thing she was able to eat was chicken noodle soup. Review of Systems Except as stated in HPI: all other systems reviewed are Neg Past Family Social History Past Medical History Pancreatic mass Peptic ulcer disease Pancreatitis PTSD Past Surgical History Tubal ligation Allergies: Coded Allergies: diatrizoate meglumine (Unverified Allergy, Severe, "BLACKED OUT", 11/30/16) gadobenic acid (Unverified Allergy, Severe, "BLACKED OUT", 11/30/16) gadodiamide (Unverified Allergy, Severe, "BLACKED OUT", 11/30/16) gadoteridol (Unverified Allergy, Severe, "BLACKED OUT", 11/30/16) ibuprofen (Unverified Allergy, Severe, Tachycardia, 11/30/16) iodixanol (Unverified Allergy, Severe, "BLACKED OUT", 11/30/16) iohexol (Unverified Allergy, Severe, "BLACKED OUT", 11/30/16) Active Ordered Medications Current Medications Medications (Trade) Dose Ordered Sig/Adriana Route Start Time Stop Time Status Last Admin (Ativan) 0.5 mg Q8H PRN PO 04/04/17 14:00 (Protonix) 40 mg DAILY PO 04/04/17 14:00 04/04/17 16:23 Sodium Chloride 1,000 ml @ 100 mls/hr Q10H IV 04/04/17 13:56 04/04/17 16:22 (NS Flush) 2 ml UNSCH PRN IV FLUSH 04/04/17 14:00 (NS Flush) 2 ml BID IV FLUSH 04/04/17 21:00 (Tylenol) 650 mg Q4H PRN PO 04/04/17 14:00 (Zofran Inj) 4 mg Q6H PRN IVP 04/04/17 14:00 (Tylenol) 650 mg Q6H PRN PO 04/04/17 14:00 (Holland 10-325 Mg) 1 tab Q4H PRN PO 04/04/17 14:00 (Percocet 5-325 Mg) 1 tab Q6H PRN PO 04/04/17 14:00 (Morphine Inj) 4 mg Q3H PRN IV PUSH 04/04/17 14:00 (Narcan Inj) 0.4 mg UNSCH PRN IV PUSH 04/04/17 14:00 (Alicia-Colace) 1 tab BID PO 04/04/17 21:00 Potassium Chloride 100 ml @ 50 mls/hr Q2H IV 04/04/17 18:00 04/04/17 21:59 Family History The patient denies pertinent family history Social History The patient smokes 1 pack every other day. She says she drinks 1-2 glasses of wine a week. She denies illicit drug use. Physical Exam Vital Signs Vital Signs Date Time Temp Pulse Resp B/P (MAP) Pulse Ox O2 Delivery O2 Flow Rate FiO2 04/04/17 15:54 98.4 79 18 150/87 (108) 95 04/04/17 15:28 04/04/17 13:52 84 17 140/90 (107) 100 04/04/17 12:57 78 17 155/95 (115) 98 Room Air 04/04/17 11:40 91 17 199/98 (131) 95 Room Air 04/04/17 10:19 98.4 77 16 170/87 (114) 95 Physical Exam GENERAL: This is a well-nourished, well-developed patient, in no apparent distress. SKIN: No rashes, ecchymoses or lesions. Cool and dry. HEAD: Atraumatic. Normocephalic. No temporal or scalp tenderness. EYES: Pupils equal round and reactive. Extraocular motions intact. No scleral icterus. No injection or drainage. ENT: Nose without bleeding, purulent drainage or septal hematoma. Throat without erythema, tonsillar hypertrophy or exudate. Uvula midline. Airway patent. NECK: Trachea midline. No JVD or lymphadenopathy. Supple, nontender, no meningeal signs. CARDIOVASCULAR: Regular rate and rhythm without murmurs, gallops, or rubs. RESPIRATORY: Clear to auscultation. Breath sounds equal bilaterally. No wheezes , rales, or rhonchi. GASTROINTESTINAL: Abdomen soft, tender in the epigastric area along with the left upper and lower quadrants. MUSCULOSKELETAL: Extremities without clubbing, cyanosis, or edema. No joint tenderness, effusion, or edema noted. NEUROLOGICAL: Awake and alert. Cranial nerves II through XII intact. Motor and sensory grossly within normal limits. Five out of 5 muscle strength in all muscle groups. Normal speech. PSYCH: Mood and affect appropriate. Laboratory Laboratory Tests Test 04/04/17 11:40 04/04/17 11:50 White Blood Count 6.3 Red Blood Count 4.45 Hemoglobin 15.1 Hematocrit 45.0 Mean Corpuscular Volume 101.2 Mean Corpuscular Hemoglobin 34.0 Mean Corpuscular Hemoglobin Concent 33.6 Red Cell Distribution Width 14.6 Platelet Count 198 Mean Platelet Volume 8.8 Neutrophils (%) (Auto) 78.0 Lymphocytes (%) (Auto) 10.5 Monocytes (%) (Auto) 10.5 Eosinophils (%) (Auto) 0.1 Basophils (%) (Auto) 0.9 Neutrophils # (Auto) 4.9 Lymphocytes # (Auto) 0.7 Monocytes # (Auto) 0.7 Eosinophils # (Auto) 0.0 Basophils # (Auto) 0.1 CBC Comment DIFF FINAL Differential Comment Prothrombin Time 10.2 Prothromb Time International Ratio 1.0 Activated Partial Thromboplast Time 25.1 Blood Urea Nitrogen 8 Creatinine 0.74 Random Glucose 115 Total Protein 8.4 Albumin 4.0 Calcium Level 9.6 Alkaline Phosphatase 89 Aspartate Amino Transf (AST/SGOT) 58 Alanine Aminotransferase (ALT/SGPT) 61 Total Bilirubin 0.9 Sodium Level 140 Potassium Level 3.2 Chloride Level 106 Carbon Dioxide Level 24.5 Anion Gap 10 Estimat Glomerular Filtration Rate 82 Lipase 270 Urine Color YELLOW Urine Turbidity HAZY Urine pH 7.0 Urine Specific [place] 1.010 Urine Protein NEG Urine Glucose (UA) NEG Urine Ketones NEG Urine Occult Blood NEG Urine Nitrite NEG Urine Bilirubin NEG Urine Urobilinogen 2.0 Urine Leukocyte Esterase NEG Urine RBC LESS THAN 1 Urine WBC 1 Urine Squamous Epithelial Cells 4 Urine Amorphous Sediment FEW Urine Bacteria RARE Urine Mucus FEW Microscopic Urinalysis Comment CULT NOT INDICATED Result Diagram: 04/04/17 1140 04/04/17 1140 Imaging Last Impressions Chest X-Ray 04/04/17 0000 Signed Impressions: Service Date/Time: Tuesday, April 04, 2017 12:00 - CONCLUSION: No acute disease. Cecilio Parkinson MD FACR Abdomen CT 04/04/17 0000 Signed Impressions: Service Date/Time: Tuesday, April 04, 2017 12:15 - CONCLUSION: Small 1.3 cm mass in the spleen stable in the interval. Normal bowel gas pattern I do not see on this patient's nausea and vomiting. Cecilio Parkinson MD FACR Caprini VTE Risk Assessment Caprini VTE Risk Assessment: Mod/High Risk (score >= 2) Caprini Risk Assessment Model Point Value = 1 Point Value = 2 Point Value = 3 Point Value = 5 Age 41-60 Minor surgery BMI > 25 kg/m2 Swollen legs Varicose veins or History of unexplained or recurrent spontaneous Oral contraceptives or hormone replacement Sepsis (< 1 month) Serious lung disease, including pneumonia (< 1 month) Abnormal pulmonary function Acute myocardial infarction Congestive heart failure (< 1 month) History of inflammatory bowel disease Medical patient at bed rest Age 61-74 Arthroscopic surgery Major open surgery (> 45 min) Laparoscopic surgery (> 45 min) Malignancy Confined to bed (> 72 hours) Immobilizing plaster cast Central venous access Age >= 75 History of VTE Family history of VTE Factor V Leiden Prothrombin [id number] Lupus anticoagulant Anticardiolipin antibodies Elevated serum homocysteine Heparin-induced thrombocytopenia Other congenital or acquired thrombophilia Stroke (< 1 month) Elective arthroplasty Hip, pelvis, or leg fracture Acute spinal cord injury (< 1 month) Prophylaxis Regimen Total Risk Factor Score Risk Level Prophylaxis Regimen 0-1 Low Early ambulation 2 Moderate Order ONE of the following: *Sequential Compression Device (SCD) *Heparin 5000 units SQ BID 3-4 Higher Order ONE of the following medications: *Heparin 5000 units SQ TID *Enoxaparin/Lovenox 40 mg SQ daily (WT < 150 kg, CrCl > 30 mL/min) *Enoxaparin/Lovenox 30 mg SQ daily (WT < 150 kg, CrCl > 10-29 mL/min) *Enoxaparin/Lovenox 30 mg SQ BID (WT < 150 kg, CrCl > 30 mL/min) AND/OR *Sequential Compression Device (SCD) 5 or more Highest Order ONE of the following medications: *Heparin 5000 units SQ TID (Preferred with Epidurals) *Enoxaparin/Lovenox 40 mg SQ daily (WT < 150 kg, CrCl > 30 mL/min) *Enoxaparin/Lovenox 30 mg SQ daily (WT < 150 kg, CrCl > 10-29 mL/min) *Enoxaparin/Lovenox 30 mg SQ BID (WT < 150 kg, CrCl > 30 mL/min) AND *Sequential Compression Device (SCD) Assessment and Plan Assessment and Plan Hematemesis/abdominal pain/pancreatitis/peptic ulcer disease No witnessed episodes of hematemesis in the hospital. Hemoglobin 15.1 on admission. - Keep the patient nothing by mouth with IV fluids. - IV PPI twice a day. - The patient's administrative liaison has been consulted. - Pain control with a bowel regimen. - Trend LFTs, which are mildly elevated. Pancreatic mass Stable on CT of the abdomen. - The patient will pursue a biopsy on an outpatient basis. - GI consultation pending. Hypokalemia Secondary to decreased by mouth intake and vomiting. - Replete with IV potassium and monitor. Nicotine dependence The patient smokes a pack of cigarettes every other day. - Cessation instruction. - Nicotine patch deferred. Hypertension Likely secondary to pain. - Pain control. - Vasotec as needed. PPx: SCDs Code Status Full Discussed Condition With Pt, nurse Jun Brumfield DO Apr 04, 2017 16:45
[2017-04-04 16:58] VITALS: BP 132/86; PULSE 76; RESP 18; TEMP 98; O2SAT 97
[2017-04-04] MEDS: POTASSIUM CHLOR 20 MEQ PREMIX 100 ML IV SCH ×2 (18:38→20:36)
[2017-04-04] MEDS: MORPHINE SULFATE 4 MG/ML INJ IV PUSH PRN (19:33)
[2017-04-04] MEDS: SODIUM CHLORIDE 0.9% FLUSH 10 ML FLUSH IV FLUSH SCH (21:00)
[2017-04-05 00:05] VITALS: BP 146/97; PULSE 83; RESP 18; TEMP 98.5; O2SAT 96
[2017-04-05] MEDS: DOCUSATE SODIUM 50 MG/SENNA 8.6 MG TAB PO SCH ×2 (00:34→08:41)
[2017-04-05] MEDS: LORazepam 0.5 MG TAB PO PRN ×2 (00:34→16:14)
[2017-04-05] MEDS: PANTOPRAZOLE SODIUM 40 MG VIAL IV PUSH SCH ×2 (00:34→08:38)
[2017-04-05] MEDS: ONDANSETRON HCL 4 MG/2 ML VIAL IVP PRN ×2 (00:34→10:22)
[2017-04-05] MEDS: MORPHINE SULFATE 4 MG/ML INJ IV PUSH PRN ×3 (00:35→07:07)
[2017-04-05] MEDS: SODIUM CHLOR 0.9% 1000 ML INJ 1,000 ML IV SCH ×3 (03:50→16:14)
[2017-04-05 04:43] VITALS: BP 168/99; PULSE 79; RESP 18; TEMP 98.4; O2SAT 94
[2017-04-05 08:06] VITALS: BP 137/83; PULSE 79; RESP 20; TEMP 98.2; O2SAT 96
[2017-04-05] MEDS: SODIUM CHLORIDE 0.9% FLUSH 10 ML FLUSH IV FLUSH SCH (08:41)
[2017-04-05] MEDS ORDERED: INFLUENZA VIRUS VACCINE (QUADRIVALENT) 0.5 ML SYR IM ONE (10:00)
[2017-04-05] MEDS ORDERED: MORPHINE SULFATE 2 MG/ML INJ IV PUSH PRN (10:30)
--- NOTE | 2017-04-05 10:42 | PD.CONS ---
HPI History of Present Illness This is a 56 year old female who presented to the emergency room with vomiting and bloating with any type of food she eats. She notes the vomiting starts with food particles Restasis 2 blood area and onset of her symptoms has been approximately 10 days. She does note some epigastric pain is stabbing in nature radiating into her back; states the pain is constant and waxes and wanes in severity, 10 out of 10. She states this pain wakes her up at night in the past week. She does complain of some fever, high noted 102, and diarrhea without blood 10 months. She has been hospitalized 4 times for the sign similar symptoms. Last EGD done in August 2016 showed 4 ulcers. Patient has a significant history of pancreatitis and bloating. (Sylvie Fonseca) PFSH Past Medical History Pancreatic mass Peptic ulcer disease Pancreatitis PTSD Past Surgical History Tubal ligation EGD August 2016 (Sylvie Fonseca) Coded Allergies: diatrizoate meglumine (Unverified Allergy, Severe, "BLACKED OUT", 11/30/16) gadobenic acid (Unverified Allergy, Severe, "BLACKED OUT", 11/30/16) gadodiamide (Unverified Allergy, Severe, "BLACKED OUT", 11/30/16) gadoteridol (Unverified Allergy, Severe, "BLACKED OUT", 11/30/16) ibuprofen (Unverified Allergy, Severe, Tachycardia, 11/30/16) iodixanol (Unverified Allergy, Severe, "BLACKED OUT", 11/30/16) iohexol (Unverified Allergy, Severe, "BLACKED OUT", 11/30/16) Medications Administered Medications Medications (Trade) Dose Ordered Sig/Adriana Route PRN Reason Start Time Stop Time Status Last Admin Dose Admin Lorazepam (Ativan) 0.5 mg Q8H PRN PO ANXIETY AND/OR AGITATION 04/04/17 14:00 04/05/17 00:34 Sodium Chloride 1,000 ml @ 100 mls/hr Q10H IV 04/04/17 13:56 04/05/17 09:56 Ondansetron HCl (Zofran Inj) 4 mg Q6H PRN IVP NAUSEA OR VOMITING 04/04/17 14:00 04/05/17 10:22 Acetaminophen/ Hydrocodone Bitart (Searcy 10-325 Mg) 1 tab Q4H PRN PO PAIN SCALE 6 TO 10 04/04/17 14:00 04/04/17 17:32 Senna/Docusate Sodium (Alicia-Colace) 1 tab BID PO 04/04/17 21:00 04/05/17 00:34 Pantoprazole Sodium (Protonix Inj) 40 mg Q12H IV PUSH 04/04/17 21:00 04/05/17 08:38 Morphine Sulfate (Morphine Inj) 4 mg Q3H PRN IV PUSH BREAKTHROUGH PAIN 04/05/17 10:30 04/05/17 10:25 Family History The patient denies pertinent family history Social History The patient smokes 1 pack every 3 days. She says she drinks 1-2 glasses of wine twice a week. She denies illicit drug use. (Sylvie Fonseca) Review of Systems Constitutional: COMPLAINS OF: Fatigue, Fever, Chills Gastrointestinal: COMPLAINS OF: Abdominal pain, Diarrhea, Nausea, Vomiting Psychiatric: COMPLAINS OF: Anxiety (Sylvie Fonseca) GI Exam Vitals I&O Vital Signs Date Time Temp Pulse Resp B/P (MAP) Pulse Ox O2 Delivery O2 Flow Rate FiO2 04/05/17 08:06 98.2 79 20 137/83 (101) 96 04/05/17 04:58 18 04/05/17 04:43 98.4 79 18 168/99 (122) 94 04/05/17 00:05 98.5 83 18 146/97 (113) 96 04/04/17 16:58 98.0 76 18 132/86 (101) 97 04/04/17 15:54 98.4 79 18 150/87 (108) 95 04/04/17 15:28 04/04/17 13:52 84 17 140/90 (107) 100 04/04/17 12:57 78 17 155/95 (115) 98 Room Air 04/04/17 11:40 91 17 199/98 (131) 95 Room Air I/O 04/04/17 04/04/17 04/04/17 04/05/17 04/05/17 04/05/17 07:00 15:00 23:00 07:00 15:00 23:00 Intake Total 1000 ml 5 ml 1100 ml 700 ml Balance 1000 ml 5 ml 1100 ml 700 ml Intake Oral 5 ml 300 ml IV Total 1000 ml 1100 ml 400 ml Imaging Last Impressions Chest X-Ray 04/04/17 0000 Signed Impressions: Service Date/Time: Tuesday, April 04, 2017 12:00 - CONCLUSION: No acute disease. Cecilio Parkinson MD FACR Abdomen CT 04/04/17 0000 Signed Impressions: Service Date/Time: Tuesday, April 04, 2017 12:15 - CONCLUSION: Small 1.3 cm mass in the spleen stable in the interval. Normal bowel gas pattern I do not see on this patient's nausea and vomiting. Cecilio Parkinson MD FACR Laboratory Test 04/04/17 11:40 04/04/17 11:50 White Blood Count 6.3 TH/MM3 Red Blood Count 4.45 MIL/MM3 Hemoglobin 15.1 GM/DL Hematocrit 45.0 % Mean Corpuscular Volume 101.2 FL Mean Corpuscular Hemoglobin 34.0 PG Mean Corpuscular Hemoglobin Concent 33.6 % Red Cell Distribution Width 14.6 % Platelet Count 198 TH/MM3 Mean Platelet Volume 8.8 FL Neutrophils (%) (Auto) 78.0 % Lymphocytes (%) (Auto) 10.5 % Monocytes (%) (Auto) 10.5 % Eosinophils (%) (Auto) 0.1 % Basophils (%) (Auto) 0.9 % Neutrophils # (Auto) 4.9 TH/MM3 Lymphocytes # (Auto) 0.7 TH/MM3 Monocytes # (Auto) 0.7 TH/MM3 Eosinophils # (Auto) 0.0 TH/MM3 Basophils # (Auto) 0.1 TH/MM3 CBC Comment DIFF FINAL Differential Comment Prothrombin Time 10.2 SEC Prothromb Time International Ratio 1.0 RATIO Activated Partial Thromboplast Time 25.1 SEC Blood Urea Nitrogen 8 MG/DL Creatinine 0.74 MG/DL Random Glucose 115 MG/DL Total Protein 8.4 GM/DL Albumin 4.0 GM/DL Calcium Level 9.6 MG/DL Alkaline Phosphatase 89 U/L Aspartate Amino Transf (AST/SGOT) 58 U/L Alanine Aminotransferase (ALT/SGPT) 61 U/L Total Bilirubin 0.9 MG/DL Sodium Level 140 MEQ/L Potassium Level 3.2 MEQ/L Chloride Level 106 MEQ/L Carbon Dioxide Level 24.5 MEQ/L Anion Gap 10 MEQ/L Estimat Glomerular Filtration Rate 82 ML/MIN Lipase 270 U/L Urine Color YELLOW Urine Turbidity HAZY Urine pH 7.0 Urine Specific [place] 1.010 Urine Protein NEG mg/dL Urine Glucose (UA) NEG mg/dL Urine Ketones NEG mg/dL Urine Occult Blood NEG Urine Nitrite NEG Urine Bilirubin NEG Urine Urobilinogen 2.0 MG/DL Urine Leukocyte Esterase NEG Urine RBC LESS THAN 1 /hpf Urine WBC 1 /hpf Urine Squamous Epithelial Cells 4 /hpf Urine Amorphous Sediment FEW Urine Bacteria RARE /hpf Urine Mucus FEW /lpf Microscopic Urinalysis Comment CULT NOT INDICATED Physical Examination HEENT: Pupils round and reactive to light; normocephalic; atraumatic; no jaundice. NECK: Neck is supple, CHEST: Chest is clear to auscultation and percussion. CARDIAC: Regular rate and rhythm with no murmur gallop or rubs. ABDOMEN: Soft, I'll bloating noted, epigastric pain tender to minimal light palpation, bowel sounds are present in all four quadrants. EXTREMITIES: No clubbing, cyanosis, or edema. SKIN: Normal; no rash; no jaundice. BUYER GRAIN: No focal deficits; alert and oriented times three., Anxious over current symptoms and condition (Sylvie Fonseca) Assessment and Plan Assessment: (1) Epigastric abdominal pain ICD Codes: R10.13 - Epigastric pain (2) Diarrhea ICD Codes: R19.7 - Diarrhea, unspecified (3) Gastritis ICD Codes: K29.70 - Gastritis, unspecified, without bleeding Status: Acute (4) Pancreatic cyst ICD Codes: K86.2 - Cyst of pancreas Status: Acute (5) Abdominal pain ICD Codes: R10.9 - Unspecified abdominal pain Status: Acute (6) Hematemesis with nausea ICD Codes: K92.0 - Hematemesis Status: Acute Plan EGD today, the patient is nothing by mouth due to her symptoms of nausea vomiting and epigastric pain, and her previous ulcers, she needs further evaluation PPI Monitor for any episodes of bleeding Monitor I&O number of stools Her pain level Labs as warranted Case discussed with , this note was done on his behalf (Sylvie Fonseca) Physician Comments Seen and examined, plan as above. Will proceed with EGD today. Further recommendations to follow. (Chris Walker MD) Problem Qualifiers (1) Gastritis: Qualified Codes: K29.01 - Acute gastritis with bleeding (2) Abdominal pain: Qualified Codes: R10.84 - Generalized abdominal pain Sylvie Fonseca Apr 05, 2017 10:42 Chris Walker MD Apr 05, 2017 11:03
--- NOTE | 2017-04-05 11:31 | GIPROC ---
[facility] [address] [facility]. [facility], [address] EGD PROCEDURE REPORT EXAM DATE: 04/05/2017 PATIENT NAME: Madonna Hernandez MR #: [id number] BIRTHDATE: 1960 ATTENDING: Chris Walker MD ORDER #: [id number] REFERENCE SERVICES HEAD: Lore Sal and Michelle Omer STATUS: inpatient INDICATIONS: The patient is a 56 yr old female here for an EGD due to hematemesis PROCEDURE PERFORMED: EGD w/ biopsy MEDICATIONS: None and Per Anesthesia. TOPICAL ANESTHETIC: none CONSENT: The patient understands the risks and benefits of the procedure and understands that these risks include, but are not limited to: sedation, allergic reaction, infection, perforation and/or bleeding. Alternative means of evaluation and treatment include, among others: physical exam, x-rays, and/or surgical intervention. The patient elects to proceed with this endoscopic procedure. medical equipment was checked for proper function. Hand hygiene and appropriate measures for infection prevention was taken. After the risks, benefits and alternatives of the procedure were thoroughly explained, Informed consent was verified, confirmed and timeout was successfully executed by the treatment team. The patient was anesthetized with topical anesthesia and the Pentax [id number] endoscope was introduced through the mouth and advanced to the second portion of the duodenum. Retroflexion was performed and was normal The gastroscope was then slowly withdrawn and removed. ESOPHAGUS: There was LA Class B esophagitis noted. STOMACH: There was erythematous moderate gastritis in the gastric antrum. Multiple biopsies were performed using cold forceps. Sample sent for histology. DUODENUM: The duodenal mucosa appeared normal in the 2nd part of the duodenum. ADVERSE EVENTS: There were no complications. IMPRESSIONS: 1. There was LA Class B esophagitis noted 2. There was erythematous gastritis in the gastric antrum; multiple biopsies were performed 3. Normal duodenal mucosa in the duodenum 4. Retroflexion was performed and was normal RECOMMENDATIONS: 1. Await biopsy results. Biopsy results will not be ready for 7-10 days. If you don't hear from us in two weeks, call our office for biopsy results. 2. Continue PPI PATIENT CONDITION: stable DISPOSITION: Observation REPEAT EXAM: NONE Chris Walker MD eSigned: Chris Wlaker MD 04/05/2017 11:31 AM cc: PATIENT NAME: David Madonna C MR#: [id number]
[2017-04-05] MEDS ORDERED: oxyCODONE HCL ORAL CONC 5 MG/0.25 ML SYRINGE PO PRN ×3 (13:15→17:15)
--- NOTE | 2017-04-05 13:50 | HHI.PR ---
Subjective Remarks Follow up on patient with abdominal pain, N/V, hx of pancreatitis. Patient seen and examined. Patient just returned from EGD procedure. She reports persistent epigastric pain. She does not follow with GI as outpatient due to not having insurance coverage until recently. She states she is been unable to keep anything down for the past 7 days. She states that whenever she tries to eat or drink anything it immediately comes back up. She also states she's had recorded temperatures as high as 102. She reports drinking alcohol occasionally but nothing in the last 7 days. She takes Zantac at home. Objective Vitals Vital Signs Date Time Temp Pulse Resp B/P (MAP) Pulse Ox O2 Delivery O2 Flow Rate FiO2 04/05/17 11:38 97.6 77 18 154/88 (110) 97 04/05/17 08:06 98.2 79 20 137/83 (101) 96 04/05/17 04:58 18 04/05/17 04:43 98.4 79 18 168/99 (122) 94 04/05/17 00:05 98.5 83 18 146/97 (113) 96 04/04/17 16:58 98.0 76 18 132/86 (101) 97 04/04/17 15:54 98.4 79 18 150/87 (108) 95 04/04/17 15:28 04/04/17 13:52 84 17 140/90 (107) 100 I/O 04/04/17 04/04/17 04/04/17 04/05/17 04/05/17 04/05/17 07:00 15:00 23:00 07:00 15:00 23:00 Intake Total 1000 ml 5 ml 1100 ml 900 ml Balance 1000 ml 5 ml 1100 ml 900 ml Intake Oral 5 ml 300 ml IV Total 1000 ml 1100 ml 400 ml Other 200 ml Result Diagram: 04/04/17 1140 04/04/17 1140 Imaging Last Impressions Chest X-Ray 04/04/17 0000 Signed Impressions: Service Date/Time: Tuesday, April 04, 2017 12:00 - CONCLUSION: No acute disease. Cecilio Parkinson MD FACR Abdomen CT 04/04/17 0000 Signed Impressions: Service Date/Time: Tuesday, April 04, 2017 12:15 - CONCLUSION: Small 1.3 cm mass in the spleen stable in the interval. Normal bowel gas pattern I do not see on this patient's nausea and vomiting. Cecilio Parkinson MD FACR Objective Remarks GENERAL: This is a well-nourished, well-developed patient, in no apparent distress. Awake and alert. SKIN: Warm and dry. HEAD: Atraumatic. Normocephalic. EYES: Extraocular motions intact. No scleral icterus. No injection or drainage. ENT: Nose without bleeding or purulent drainage. Airway patent. MMM. NECK: Trachea midline. CARDIOVASCULAR: Regular rate and rhythm without murmurs, gallops, or rubs. RESPIRATORY: Clear to auscultation. Breath sounds equal bilaterally. No wheezes , rales, or rhonchi. GASTROINTESTINAL: Abdomen soft, nondistended, diffuse tenderness to palpation. MUSCULOSKELETAL: Extremities without clubbing, cyanosis, or edema. No joint tenderness, effusion, or edema noted. NEUROLOGICAL: Awake and alert. Able to move all extremities. Nonfocal. Normal speech. Medications and IVs Current Medications Medications (Trade) Dose Ordered Sig/Adriana Route Start Time Stop Time Status Last Admin (Ativan) 0.5 mg Q8H PRN PO 04/04/17 14:00 04/05/17 00:34 Sodium Chloride 1,000 ml @ 100 mls/hr Q10H IV 04/04/17 13:56 04/05/17 09:56 (NS Flush) 2 ml UNSCH PRN IV FLUSH 04/04/17 14:00 (NS Flush) 2 ml BID IV FLUSH 04/04/17 21:00 (Tylenol) 650 mg Q4H PRN PO 04/04/17 14:00 (Zofran Inj) 4 mg Q6H PRN IVP 04/04/17 14:00 04/05/17 10:22 (Tylenol) 650 mg Q6H PRN PO 04/04/17 14:00 (Blaine 10-325 Mg) 1 tab Q4H PRN PO 04/04/17 14:00 04/04/17 17:32 (Percocet 5-325 Mg) 1 tab Q6H PRN PO 04/04/17 14:00 (Narcan Inj) 0.4 mg UNSCH PRN IV PUSH 04/04/17 14:00 (Alicia-Colace) 1 tab BID PO 04/04/17 21:00 04/05/17 00:34 (Protonix Inj) 40 mg Q12H IV PUSH 04/04/17 21:00 04/05/17 08:38 (Vasotec Inj) 1.25 mg Q6H PRN IV PUSH 04/04/17 16:45 (Morphine Inj) 4 mg Q3H PRN IV PUSH 04/05/17 10:30 04/05/17 10:25 (Roxicodone Intensol Liq) 5 mg Q4H PRN PO 04/05/17 13:15 UNV A/P Assessment and Plan Hematemesis/abdominal pain/pancreatitis/peptic ulcer disease No witnessed episodes of hematemesis in the hospital. Hemoglobin 15.1 on admission. - GI following, appreciate systems. Status post EGD revealing erythematous gastritis. Started on clear liquid diet by GI. Monitor for toleration. - Continue on PPI, change to PO - Pain control with a bowel regimen. - Trend LFTs, which are mildly elevated, am lab pending Pancreatic mass - Small 1.3 cm mass in the spleen stable in the interval - The patient will pursue a biopsy on an outpatient basis. Hypokalemia Secondary to decreased by mouth intake and vomiting. - Replete with IV potassium and monitor. Follow up labs pending. Nicotine dependence The patient smokes a pack of cigarettes every other day. - Cessation instruction. - Nicotine patch deferred. Hypertension Likely secondary to pain. - Pain control. - Vasotec as needed. PPx: SCDs Discussed with patient, nursing staff and Dr. Bone Discharge Planning Pending GI clearance Sandra Curran Apr 05, 2017 13:50
[2017-04-05 15:22] VITALS: BP 118/70; PULSE 89; RESP 16; TEMP 98; O2SAT 96
--- NOTE | 2017-04-05 16:09 | EKG ---
Date Performed: 04/04/2017 Time Performed: 13:10:25 PTAGE: 56 years EKG: Sinus rhythm WITH SINUS ARRHYTHMIA POSSIBLE LEFT ATRIAL ENLARGEMENT POSSIBLE RIGHT VENTRICULAR CONDUCTION DELAY S EPTAL MYOCARDIAL INFARCTION Loss of R wave in leads V1 and V2. Could be due to lead placement or repr esent septal injury. Clinical corrolation is suggested. ABNORMAL ECG PREVIOUS TRACING : 10/13/2016 17.59 DOCTOR: Ector Kay Interpretating Date/Time 04/05/2017 16:08:20
[2017-04-05 17:14] LABS: ALT (GPT) 54 U/L (10-53); ANION GAP 10 MEQ/L (5-15); AST (GOT) 55 U/L (15-37); BLOOD UREA NITROGEN 7 MG/DL (7-18); CHLORIDE 105 MEQ/L (98-107); GLOMERULAR FILTRATION RATE 100 ML/MIN (>89); SODIUM (NA) 139 MEQ/L (136-145)
[2017-04-05 17:15] LABS: ALKALINE PHOSPHATASE 67 U/L (45-117); TOTAL BILIRUBIN ADULT 0.7 MG/DL (0.2-1.0)
[2017-04-06] MEDS ORDERED: PANTOPRAZOLE SOD 40 MG DELAYED RELEASE TAB PO SCH (09:00)
== END 2017-04-05 19:20 | disposition home or self-care (01) ==
LOC: NEPE 10:17 → NEDA 14:19 → NEPHCDU 15:26
PROVIDERS: ADMIT Family Medicine; ATTEND Family Medicine
DX: K29.01 Acute gastritis with bleeding (principal); E87.6 Hypokalemia; K85.90 Acute pancreatitis without necrosis or infection, unspecified; I10 Essential (primary) hypertension; I78.1 Nevus, non-neoplastic; I49.9 Cardiac arrhythmia, unspecified; R94.31 Abnormal electrocardiogram [ECG] [EKG]; K86.2 Cyst of pancreas; R10.84 Generalized abdominal pain; R11.2 Nausea with vomiting, unspecified; F43.10 Post-traumatic stress disorder, unspecified; F17.210 Nicotine dependence, cigarettes, uncomplicated; Z79.899 Other long term (current) drug therapy; Z87.11 Personal history of peptic ulcer disease; Z23 Encounter for immunization
CPT/HCPCS: 71010; 74150; 80053; 81001; 83690; 85025; 85610; 85730; 88305; 90686; 93005; 96361; 96365; 96366; 96375; 96376; 99285; C9113; G0378; J1170; J2270; J2405; J2765; J3010; J3480; J7030; Q2038

== ENCOUNTER 2018-02-20 19:01 | Observation (INO) ==
[2018-02-21] MEDS ORDERED: Sodium Chlor 0.9% Inj 500 ML IV.SIG ONE (00:07)
[2018-02-21] MEDS ORDERED: HYDROmorphone PF Inj 2 MG/ML Vial IV.PUSH ONE (00:31)
--- NOTE | 2018-02-21 00:33 | XR ---
EXAM DATE: 02/21/2018 12:30 AM EST AGE/SEX: 57 years / Female INDICATIONS: Pain in chest , free air. CLINICAL DATA: This is the patient's initial encounter. Patient reports that signs and symptoms have been present for 3 days and indicates a pain score of 10/10. MEDICAL/SURGICAL HISTORY: Hypertension. Carcinoma, pancreas. None. COMPARISON: [facility], CHEST SINGLE AP, 04/04/2017. . FINDINGS: A single AP view of the chest demonstrates the lungs to be symmetrically aerated without evidence of mass, infiltrate or effusion. The cardiomediastinal contours are unremarkable. Osseous structures a re intact. No evidence of pneumoperitoneum CONCLUSION: Negative examination. Electronically signed by: Nando Roy MD 02/21/2018 12:31 AM EST
[2018-02-21 00:46] LABS: Baso # (Auto) 0.1 th/mm3 (0.0-0.2); Baso % (Auto) 1.2 % (0.0-2.0); Eos % (Auto) 0.2 % (0.0-4.0); Hematocrit 45.1 % (35.0-46.0); Hemoglobin 15.2 gm/dL (11.6-15.3); Lymph # (Auto) 1.3 th/mm3 (1.0-4.8); Lymph % (Auto) 13.3 % (9.0-44.0); Mean Corpuscular HGB Conc 33.7 % (32.0-36.0); Mean Corpuscular Hemoglobin 33.7 pg (27.0-34.0); Mean Corpuscular Volume 99.8 fL (80.0-100.0); Mean Platelet Volume 8.6 fL (7.0-11.0); Mono # (Auto) 0.7 th/mm3 (0.0-0.9); Mono % (Auto) 6.9 % (0.0-8.0); Neut # (Auto) 7.5 th/mm3 (1.8-7.7); Neut % (Auto) 78.4 % (16.0-70.0); Platelet Count 329 th/mm3 (150-450); Red Blood Count 4.52 mil/mm3 (4.00-5.30); Red Cell Distribution Width 20.4 % (11.6-17.2); White Blood Count 9.6 th/mm3 (4.0-11.0)
--- NOTE | 2018-02-21 00:48 | ED ---
HPI General Chief complaint: Abdominal Pain Stated complaint: Pateint states abd pain Time Seen by Provider: 02/21/18 00:02 Source: patient Limitations: no limitations History of Present Illness HPI narrative: The patient is a 57 year old female who presents to the [facility] emergency department with a history of abdominal pain that she reports began On Tuesday. The patient reports having a history of chronic abdominal pain related to chronic pancreatitis managed by a GI physician named, . The patient reports that her pancreatitis pain is usually in the left upper quadrant and midepigastric area, however this is in a different location. She reports that this pain is in the right upper quadrant. She reports that it is constant, sharp in character, and gradually worsening with time. She reports that it radiates around to the right flank. She denies having any dysuria, hematuria, urinary urgency, or frequency associated with this. She does not report having diarrhea. She reports that she has had diarrhea at least 20 times today. She denies having any blood in her stool. She additionally reports having nausea and vomiting 3 times today. She reports that she first started having problems with acute pancreatitis in 2016. In October 2017 she had her gallbladder removed. She denies drinking any alcohol. She denies being on any pancreatic enzymes. The patient reports that she was last admitted to the hospital with pancreatitis a week ago. She reports that she was admitted at [facility] in [place]. On review of systems otherwise, the patient denies having any known recent fevers, cough, congestion , neck pain, chest pain, shortness of breath, or neurologic symptoms. Related Data Home Medications Medication Instructions Recorded Confirmed lorazepam 0.5 mg PO BID PRN 01/06/18 02/21/18 ondansetron 8 mg PO TID PRN 01/06/18 02/21/18 oxycodone 15 mg PO Q4-6H PRN 01/06/18 02/21/18 pantoprazole 40 mg PO DAILY 01/06/18 02/21/18 zolpidem 1 tab PO HS PRN 01/06/18 02/21/18 fentanyl 25 mg OTHER DIRECTED PRN 02/21/18 02/21/18 promethazine [Phenergan] 25 mg MT PRN PRN 02/21/18 02/21/18 Allergies Allergy/AdvReac Type Severity Reaction Status Date / Time diatrizoate meglumine Allergy Severe "BLACKED Verified 02/20/18 19:44 OUT" gadobenic acid Allergy Severe "BLACKED Verified 02/20/18 19:44 OUT" gadodiamide Allergy Severe "BLACKED Verified 02/20/18 19:44 OUT" gadoteridol Allergy Severe "BLACKED Verified 02/20/18 19:44 OUT" ibuprofen Allergy Severe Tachycardia Verified 02/20/18 19:44 iodixanol Allergy Severe "BLACKED Verified 02/20/18 19:44 OUT" iohexol Allergy Severe "BLACKED Verified 02/20/18 19:44 OUT" Review of Systems ROS: all other systems reviewed are negative [facility] Medical History Medical History Anxiety (Acute) Chronic pain (Acute) 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 (Acute) Hx of chronic pancreatitis (Acute) Insomnia (Acute) Surgical History Surgical History Hx of cholecystectomy (Acute) Social History Social History Substance History: No History of Abuse Second Hand Smoke Exposure: Yes Smoking Status: Former smoker Tobacco Type: Cigarettes How Often Do You Have a Drink Containing Alcohol: Never Recent Travel in [facility] within the Last 8 Weeks: No Recent Out of Country Travel within the Last 8 Weeks: No Exam Const General: cooperative, well developed and acute distress (Reportedly related to right upper quadrant abdominal pain.) mild Nutritional Appearance: well nourished Orientation: alert, awake and oriented x3 HENMT Head: normocephalic and atraumatic Nose: no nasal discharge and no epistaxis Mouth: moist mucous membranes Throat: posterior oropharynx normal and uvula midline Eyes Sclera: normal sclerae Pupils: PERRL EOM: EOM intact bilaterally Neck Neck: no meningeal signs, trachea midline and no JVD Resp Effort & Inspection: no use of accessory muscles Auscultation: clear to auscultation bilaterally Cardio Rate: tachycardic (Sinus sinus tachycardia in the 1 teens, no pulse deficits to the extremities on simultaneous auscultation and palpation of her radial artery. ) Rhythm: regular rhythm Heart Sounds: no gallops, no murmurs and no rubs GI Inspection: non-distended Palpation: soft, no hepatosplenomegaly, no guarding, not rigid and tender in the RUQ; not in the epigastrum, not in the LLQ, not in the RLQ, not in the LUQ, not at McBurney's point, not suprapubicly, Recio's sign negative and with no rebound tenderness Auscultation: hypoactive bowel sounds Back/Spine/Pelvis Back: CVA tenderness (The patient reports having right-sided CVA tenderness on palpation.) Skin General: dry skin (warm) Neuro General: alert, awake, oriented x3 and other (Grossly nonfocal.) Speech: speech normal Motor: no movement abnormalities noted Extrem General: normal to inspection (2+ pulses in all 4 extremities.), no calf tenderness, no clubbing, no cyanosis and no edema Psych Mood: congruent mood Affect: normal affect Judgment: judgment good Course Initial Documented Vital Signs Temperature 98.8 F 02/20/18 19:43 Pulse Rate 118 H 02/20/18 19:43 Respiratory Rate 16 02/20/18 19:43 Blood Pressure 213/122 H 02/20/18 19:43 Pulse Oximetry 96 02/20/18 19:43 Last Documented Vital Signs Temperature 98.6 F 02/21/18 16:00 Pulse Rate 80 02/21/18 16:00 Respiratory Rate 20 02/21/18 16:00 Blood Pressure 164/89 H 02/21/18 16:00 Pulse Oximetry 96 02/21/18 16:00 Medical Decision Making MDM Narrative Medical decision making narrative: During the course of the patient's emergency department visit, the patient's history, examination, and differential diagnosis were reviewed with the patient. The patient was placed on a umbrella finisher with oximetry and frequent blood pressure monitoring. The patient had IV access obtained and blood work sent for analysis. A diagnostic evaluation was started regarding the patient's right upper quadrant abdominal pain associated with nausea, vomiting, diarrhea. The patient was initially provided normal saline IV fluids, Zofran for nausea. The patient continued to have nausea and vomiting, the patient was given Reglan 5 mg IV, hydromorphone 1 mg IV for pain. The patient's diagnostic studies are remarkable for a white count that is normal at 9.6, hemoglobin 15.2, platelets 329 with 78.4 neutrophils PT PTT within normal limits, chemistry is remarkable for BUN of 6, glucose 126, magnesium was low at 1.4 which was supplemented IV, AST 48, alk phos 121, CPK 411 with a normal MB percent, troponin I less than 0.02, lipase within normal limits at 133. Urinalysis showed hazy urine 30 protein trace leukocyte esterase rare sediment, rare bacteria many mucus, culture not indicated. Stool studies including C. difficile toxin, WBC smear, enteric pathogen culture have been ordered. The patient's chest x-ray showed no acute abnormality. CT scan of the abdomen and pelvis revealed evidence of colitis, mild concentric wall thickening involving the colon, most notably on the right and transverse colon, specifically where the patient reports having increased pain. The patient will be admitted to the hospital for continued evaluation and treatment for colitis. The patient's case including history, pertinent physical examination findings, and laboratory studies were discussed with Dr. North. It was agreed that the patient would be admitted to the hospitalist service. The patient's results were discussed with the patient, including the plan of care. I explained that further testing and/ or monitoring is indicated based on the patient's history, examination, and/ or laboratory findings. Therefore, I recommended admission for additional evaluation. The patient expressed understanding and was agreeable with this plan. The patient was admitted to the hospital in stable condition and sent to a bed under the care of the [facility] service. Medical Screen Exam Complete: Yes Emergency Medical Condition: Yes Differential Diagnosis Differential Diagnosis: Choledocholithiasis, versus acute pancreatitis, versus exacerbation of chronic pancreatitis, versus gastroenteritis, versus colitis, versus pyelonephritis, versus kidney stone Medical Records Medical records reviewed: Yes I reviewed the patient's medical records. Lab Data Lab results reviewed: Yes I reviewed the patient's lab results. Result diagrams: 02/21/18 00:27 02/21/18 01:12 POC Results POC Urine Results Negative Lab Results 02/21/18 02/21/18 02/21/18 Range/Units 00:27 00:27 00:27 WBC 9.6 (4.0-11.0) th/mm3 RBC 4.52 (4.00-5.30) mil/mm3 Hgb 15.2 (11.6-15.3) gm/dL Hct 45.1 (35.0-46.0) % MCV 99.8 (80.0-100.0) fL MCH 33.7 (27.0-34.0) pg MCHC 33.7 (32.0-36.0) % RDW 20.4 H (11.6-17.2) % Plt Count 329 (150-450) th/mm3 MPV 8.6 (7.0-11.0) fL Neut % (Auto) 78.4 H (16.0-70.0) % Lymph % (Auto) 13.3 (9.0-44.0) % [place] % (Auto) 6.9 (0.0-8.0) % Eos % (Auto) 0.2 (0.0-4.0) % Baso % (Auto) 1.2 (0.0-2.0) % Neut # (Auto) 7.5 (1.8-7.7) th/mm3 Lymph # (Auto) 1.3 (1.0-4.8) th/mm3 [place] # (Auto) 0.7 (0.0-0.9) th/mm3 Eos # (Auto) 0.0 (0.0-0.4) th/mm3 Baso # (Auto) 0.1 (0.0-0.2) th/mm3 WBC Differential . Differential Comment Auto diff final PT 11.0 (9.8-11.6) sec INR 1.1 Ratio APTT 28.4 (23.4-31.7) sec Sodium (136-145) meq/L Potassium (3.5-5.1) meq/L Chloride (98-107) meq/L Carbon Dioxide (21.0-32.0) meq/L Anion Gap (5-15) meq/L BUN (7-18) mg/dL Creatinine (0.50-1.00) mg/dL Estimated GFR (>89) mL/min Random Glucose (74-106) mg/dL Lactic Acid 1.4 (0.4-2.0) mmol/L Calcium (8.5-10.1) mg/dL Magnesium (1.5-2.5) mg/dL Total Bilirubin (0.2-1.0) mg/dL AST (15-37) U/L ALT (10-53) U/L Alkaline Phosphatase (45-117) U/L Total Creatine Kinase (26-192) U/L CK-MB (CK-2) (0.5-3.6) ng/mL CK-MB (CK-2) % (0.0-4.0) % Troponin I (0.02-0.05) ng/mL Total Protein (6.4-8.2) g/dL Albumin (3.4-5.0) g/dL Lipase (73-393) U/L Urine Color (Yellw/Straw) Urine Clarity (Clear) Urine pH (5.0-8.5) Ur Specific [place] (1.002-1.035) Urine Protein (Neg-Trace) mg/dL Urine Glucose (UA) (Negative) mg/dL Urine Ketones (Negative) mg/dL Urine Occult Blood (Negative) Urine Nitrate (Negative) Urine Bilirubin (Negative) Urine Urobilinogen (Less than 2) mg/dL Ur Leukocyte Esterase (Negative) Urine RBC (0-3) /hpf Urine WBC (0-5) /hpf Ur Squamous Epith Cells (0-5) /hpf Amorphous Sediment (None) /hpf Urine Bacteria (None) /hpf Hyaline Casts (0-3) /lpf Urine Mucus (Occasional) /lpf Micro UA Comment Ur Microscopic Review Urine Culture Comments 02/21/18 02/21/18 Range/Units 01:12 02:59 WBC (4.0-11.0) th/mm3 RBC (4.00-5.30) mil/mm3 Hgb (11.6-15.3) gm/dL Hct (35.0-46.0) % MCV (80.0-100.0) fL MCH (27.0-34.0) pg MCHC (32.0-36.0) % RDW (11.6-17.2) % Plt Count (150-450) th/mm3 MPV (7.0-11.0) fL Neut % (Auto) (16.0-70.0) % Lymph % (Auto) (9.0-44.0) % [place] % (Auto) (0.0-8.0) % Eos % (Auto) (0.0-4.0) % Baso % (Auto) (0.0-2.0) % Neut # (Auto) (1.8-7.7) th/mm3 Lymph # (Auto) (1.0-4.8) th/mm3 [place] # (Auto) (0.0-0.9) th/mm3 Eos # (Auto) (0.0-0.4) th/mm3 Baso # (Auto) (0.0-0.2) th/mm3 WBC Differential Differential Comment PT (9.8-11.6) sec INR Ratio APTT (23.4-31.7) sec Sodium 139 (136-145) meq/L Potassium 3.8 (3.5-5.1) meq/L Chloride 102 (98-107) meq/L Carbon Dioxide 27.6 (21.0-32.0) meq/L Anion Gap 9 (5-15) meq/L BUN 6 L (7-18) mg/dL Creatinine 0.64 (0.50-1.00) mg/dL Estimated GFR Greater than 89 (>89) mL/min Random Glucose 126 H (74-106) mg/dL Lactic Acid (0.4-2.0) mmol/L Calcium 9.3 (8.5-10.1) mg/dL Magnesium 1.4 L (1.5-2.5) mg/dL Total Bilirubin 0.7 (0.2-1.0) mg/dL AST 48 H (15-37) U/L ALT 41 (10-53) U/L Alkaline Phosphatase 121 H (45-117) U/L Total Creatine Kinase 411 H (26-192) U/L CK-MB (CK-2) 4.7 H (0.5-3.6) ng/mL CK-MB (CK-2) % 1.1 (0.0-4.0) % Troponin I Less than 0.02 L (0.02-0.05) ng/mL Total Protein 8.7 H (6.4-8.2) g/dL Albumin 3.5 (3.4-5.0) g/dL Lipase 133 (73-393) U/L Urine Color Yellow (Yellw/Straw) Urine Clarity Hazy H (Clear) Urine pH 7.0 (5.0-8.5) Ur Specific [place] 1.015 (1.002-1.035) Urine Protein 30 H (Neg-Trace) mg/dL Urine Glucose (UA) Negative (Negative) mg/dL Urine Ketones Negative (Negative) mg/dL Urine Occult Blood Negative (Negative) Urine Nitrate Negative (Negative) Urine Bilirubin Negative (Negative) Urine Urobilinogen Less than 2 (Less than 2) mg/dL Ur Leukocyte Esterase Trace H (Negative) Urine RBC 1 (0-3) /hpf Urine WBC 5 (0-5) /hpf Ur Squamous Epith Cells 4 (0-5) /hpf Amorphous Sediment Rare H (None) /hpf Urine Bacteria Rare H (None) /hpf Hyaline Casts 3 (0-3) /lpf Urine Mucus Many H (Occasional) /lpf Micro UA Comment Culture not ind Ur Microscopic Review Not Reportable Urine Culture Comments Culture not ind Imaging Data Radiologist's impression: Chest X-Ray 02/21/18 00:05 CONCLUSION: Negative examination. Abdomen/Pelvis CT 02/21/18 02:51 CONCLUSION: Proximal predominant colitis ECG Data Attestation: I personally reviewed and interpreted this ECG as follows: Interpretation: Patient had a EKG done on arrival that shows a sinus rhythm heart rate of [address] segment elevation. Discharge Plan Discharge Disposition Patient Disposition: 30 Still Patient Discharge Details Diagnosis: Colitis Physicians Team ED Provider: Francisca Kilgore Primary Care Provider: UNKNOWN, Attending Provider: Spencer Morales Other Providers: Dot Fenton Discharge Interventions Interventions: ED Discharge Assessment Last Done: 02/21/18 13:00 Vital Signs Last Done: 02/21/18 01:25 Status ED Status: Left Department Discharge Information Discharge Date/Time: 02/21/18 13:00
[2018-02-21 01:17] LABS: Activated Partial Thrombo Time 28.4 sec (23.4-31.7); INR 1.1 Ratio
[2018-02-21 01:24] LABS: Alkaline Phosphatase 121 U/L (45-117); Creatine Kinase 411 U/L (26-192); Total Protein 8.7 g/dL (6.4-8.2)
[2018-02-21 01:36] LABS: CKMB Percent 1.1 % (0.0-4.0); Creatine Kinase MB 4.7 ng/mL (0.5-3.6)
[2018-02-21 01:53] LABS: Alanine Aminotransferase 41 U/L (10-53); Albumin 3.5 g/dL (3.4-5.0); Anion Gap 9 meq/L (5-15); Aspartate Aminotransferase 48 U/L (15-37); Blood Urea Nitrogen 6 mg/dL (7-18); Calcium 9.3 mg/dL (8.5-10.1); Carbon Dioxide 27.6 meq/L (21.0-32.0); Chloride 102 meq/L (98-107); Glomerular Filtration Rate Greater Than 89 mL/min (>89); Glucose,Random 126 mg/dL (74-106); Lipase 133 U/L (73-393); Magnesium 1.4 mg/dL (1.5-2.5); Potassium 3.8 meq/L (3.5-5.1); Sodium 139 meq/L (136-145)
[2018-02-21] MEDS ORDERED: Mag Sulf 1 gm/100 ml Premix 100 ML IV.SIG ONE (02:06)
[2018-02-21] MEDS ORDERED: Sod Chloride 0.9% Inj 1,000 ML IV.SIG ONE (02:36)
[2018-02-21] MEDS ORDERED: Dicyclomine Inj 20 MG/2 ML Ampul IM ONE (03:31)
[2018-02-21 03:36] LABS: Amorphous Sediment,Urine Rare /hpf; Bacteria,Urine Rare /hpf; Bilirubin,Urine Negative (Negative); Clarity,Urine Hazy (Clear); Color,Urine Yellow (Yellw/Straw); Glucose,Urine (UA) Negative (Negative); Hyaline Casts,Urine 3 /lpf (0-3); Leukocyte Esterase,Urine Trace (Negative); Mucus,Urine Many /lpf (Occasional); Nitrite,Urine Negative (Negative); Specific Gravity,Urine 1.015 (1.002-1.035); Squamous Epithelial Cell,Urine 4 /hpf (0-5)
--- NOTE | 2018-02-21 03:41 | CT ---
EXAM DATE: 02/21/2018 3:28 AM EST AGE/SEX: 57 years / Female INDICATIONS: Right upper quadrant pain. Nausea and vomiting. CLINICAL DATA: This is the patient's initial encounter. Patient reports that signs and symptoms have been present for 4 - 6 days and indicates a pain score of 6/10. MEDICAL/SURGICAL HISTORY: Pancreatitis. Cholecystectomy. RADIATION DOSE: 6.74 CTDI (mGy) COMPARISON: [facility], CT ABDOMEN & PELVIS W/O CONTRAST, 01/06/2018. . TECHNIQUE: Multiple contiguous axial images were obtained through the abdomen. Images were obtained using multiple row detector helical technique. Using automated exposure control and adjustment of the mA and/or kV according to patient size, radiation dose was kept as low as reasonably achievable to o btain optimal diagnostic quality images. DICOM format image data is available electronically for rev iew and comparison. FINDINGS: Lower Lungs: The visualized lower lungs are clear. Liver: Moderate patchy probable hepatic steatosis. No evidence of discrete mass or biliary ductal dil atation. Gallbladder surgically absent. Spleen: Homogeneous density without enlargement. Pancreas: Unremarkable without mass or calcification. Kidneys: Tiny nonobstructing stone in the posterior midpole region of the right kidney. Adrenal Glands: Unremarkable. Aorta: The aorta and proximal iliac vessels are grossly unremarkable without aneurysmal dilation. Bowel/Mesentery: Mild concentric wall thickening involving the colon, most notably the right and tra nsverse colon with appearance suggestive of colitis. Small bowel is focally unremarkable. Abdominal Wall: Intact. Retroperitoneum: No evidence of adenopathy in the retrocrural, para-aortic, or deep pelvic regions. Bladder: Contours are smooth. Reproductive Organs: No abnormal masses or calcifications seen. Inguinal: The inguinal region is unremarkable without evidence of adenopathy. Bony Structures: Unremarkable. CONCLUSION: Proximal predominant colitis Electronically signed by: Nando Roy MD 02/21/2018 3:40 AM EST
[2018-02-21] MEDS ORDERED: Ciprofloxacin 400 MG/200 ML 400 MG/200 ML PIGGYBACK IV.SIG ONE (03:59)
[2018-02-21] MEDS ORDERED: Bisacodyl 10 MG Supp RECTAL PRN (04:14)
[2018-02-21] MEDS: Sod Chloride 0.9% Inj 1,000 ML IV.CONT SCH ×2 (05:57→14:42)
[2018-02-21] MEDS ORDERED: Naloxone Inj 0.4 MG/ML Vial IV.PUSH PRN (06:19)
[2018-02-21] MEDS ORDERED: Morphine Inj 4 MG/ML Vial IV.PUSH PRN (06:19)
[2018-02-21] MEDS ORDERED: Promethazine 25 MG Supp RECTAL PRN (06:20)
[2018-02-21] MEDS: Morphine Inj 4 MG/ML Vial IV.PUSH PRN ×3 (06:56→13:00)
[2018-02-21] MEDS ORDERED: Sodium Chloride 0.9% 2 ML Flush PRN IV.FLUSH (06:57)
--- NOTE | 2018-02-21 08:03 | ECG ---
Date Performed: 02/21/2018 Time Performed: 01:47:12 PTAGE: 57 years EKG: Sinus rhythm POSSIBLE LEFT ATRIAL ENLARGEMENT BORDERLINE ECG No significant change from prior electrocardiogram. PREVIOUS TRACING : 04/04/2017 13.10 DOCTOR: Garth Schulte Interpretating Date/Time 02/21/2018 08:01:34
--- NOTE | 2018-02-21 08:28 | P.HPIM ---
History of Present Illness Primary Care Physician: UNKNOWN Chief Complaint: abdominal pain History of Present Illness: patient is a 57 y/o female with history of chronic pancreatitis who presented to ER with abdominal pain. she says that she was just released from [facility] about a week ago after she was treated for pancreatitis. 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 she says that her abdominal pain, this time, started four days ago. the pain was localized to the epigastric area with some radiation to the RUQ and the back. pain was severe in intensity and constant in nature. the pain was associated with nausea/ vomiting and several episodes of loose , blood-tinged bowel movements. she says that she had fever and chills at home. she denies any recent use of antibiotics. Inpatient Certification: I certify that the inpatient services were ordered in accordance with Medicare regulations governing the order. This includes certification that hospital inpatient services are reasonable and necessary and in the case of services not specified as inpatient-only under 42 CFR 419.22(n), that they are appropriately provided as inpatient services in accordance to with the 2-midnight benchmark under 43 CFR 412.3(e) Estimated Total Length of Stay (Days): 2 Plans for Post Hospital Care: Home Review of Systems All other systems reviewed negative except as stated in HPI PMFSH - History History Provided By: Patient - Medical History Medical History: Medical History (Last Reviewed 02/21/18 @ 08:25 by Spencer Morales MD) Anxiety Chronic pain 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 Hx of chronic pancreatitis Insomnia - Surgical History Surgical History: Surgical History (Last Reviewed 02/21/18 @ 08:25 by Spencer Morales MD) Hx of cholecystectomy - Family History Family History: Family History (Last Reviewed 02/21/18 @ 08:25 by Spencer Morales MD) Other Heart disease - Tobacco History Second Hand Smoke Exposure: No Tobacco Use In Past 30 Days: Yes Smoking Status: Heavy tobacco smoker Tobacco Type: Cigarettes - Alcohol History How Often Do You Have a Drink Containing Alcohol: Never - Substance Use History Substance History: No History of Abuse - Travel History Recent Travel in the [place] Within the Last 8 Weeks: No Recent Travel Out of the Country Within the Last 8 Weeks: No - Immunization History Tetanus Immunization: <5 Years Medications and Allergies Active Medications: Active Medications Al Hydroxide/Mg Hydroxide (Milk Of Magnesia Liq) 30 ml PO Q12H PRN PRN Reason: Mild Constipation Bisacodyl (Dulcolax Supp) 10 mg RECTAL DAILY PRN PRN Reason: SEVERE CONSITIPATION Ciprofloxacin/Dextrose (Cipro 400 Mg/200 Ml Inj) 400 mg in 200 mls @ 200 mls/ hr IV.SIG Q12H JOSE G Sodium Chloride (Ns Inj) 1,000 mls @ 100 mls/hr IV.CONT .Q10H JOSE G Last Infusion: 02/21/18 07:16 Dose: 100 mls/hr Metronidazole/Sodium Chloride (Flagyl 500 Mg Inj) 100 mls @ 100 mls/hr IV.SIG Q6H JOSE G Lactulose (Lactulose Liq) 30 ml PO DAILY PRN PRN Reason: SEVERE CONSITIPATION Morphine Sulfate (Morphine Inj) 2 mg IV.PUSH Q3H PRN PRN Reason: PAIN 3-5; IF UABLE TO TAKE PO Morphine Sulfate (Morphine Inj) 4 mg IV.PUSH Q3H PRN PRN Reason: PAIN 6-10;IF UNABLE TO TAKE PO Last Admin: 02/21/18 06:56 Dose: 4 mg Morphine Sulfate (Morphine Inj) 4 mg IV.PUSH Q3H PRN PRN Reason: BREAKTHROUGH PAIN Naloxone HCl (Narcan Inj) 0.4 mg IV.PUSH UNSCH PRN PRN Reason: SEE LABEL COMMENTS Ondansetron HCl (Zofran Odt) 4 mg PO Q6H PRN PRN Reason: NAUSEA OR VOMITING Ondansetron HCl (Zofran Inj) 4 mg IV.PUSH Q6H PRN PRN Reason: NAUSEA OR VOMITING Last Admin: 02/21/18 06:57 Dose: 4 mg Oxycodone/Acetaminophen (Percocet 10/325 Mg) 1 tab PO Q6H PRN PRN Reason: PAIN SCALE 6 TO 10 Oxycodone/Acetaminophen (Percocet 5/325 Mg) 1 tab PO Q6H PRN PRN Reason: PAIN SCALE 3 TO 5 Promethazine HCl (Phenergan Supp) 25 mg RECTAL Q6H PRN PRN Reason: NAUSEA OR VOMITING Promethazine HCl (Phenergan) 25 mg PO Q6H PRN PRN Reason: NAUSEA OR VOMITING Sennosides (Senokot) 17.2 mg PO Q12H PRN PRN Reason: Moderate Constipation Sodium Chloride (Ns Flush) 2 ml IV.FLUSH BID JOSE G Sodium Chloride (Ns Flush) 2 ml IV.FLUSH PRN PRN PRN Reason: FLUSH AFTER USING IV ACCESS Allergies Allergy/AdvReac Type Severity Reaction Status Date / Time diatrizoate meglumine Allergy Severe "BLACKED Verified 02/20/18 19:44 OUT" gadobenic acid Allergy Severe "BLACKED Verified 02/20/18 19:44 OUT" gadodiamide Allergy Severe "BLACKED Verified 02/20/18 19:44 OUT" gadoteridol Allergy Severe "BLACKED Verified 02/20/18 19:44 OUT" ibuprofen Allergy Severe Tachycardia Verified 02/20/18 19:44 iodixanol Allergy Severe "BLACKED Verified 02/20/18 19:44 OUT" iohexol Allergy Severe "BLACKED Verified 02/20/18 19:44 OUT" Home Medications Medication Instructions Recorded Confirmed Type lorazepam 0.5 mg PO BID PRN 01/06/18 02/21/18 History ondansetron 8 mg PO TID PRN 01/06/18 02/21/18 History oxycodone 15 mg PO Q4-6H PRN 01/06/18 02/21/18 History pantoprazole 40 mg PO DAILY 01/06/18 02/21/18 History zolpidem 1 tab PO HS PRN 01/06/18 02/21/18 History fentanyl 25 mg OTHER DIRECTED PRN 02/21/18 02/21/18 History promethazine [Phenergan] 25 mg NV PRN PRN 02/21/18 02/21/18 History Exam Vital signs: Vital Signs 02/20/18 19:43 02/21/18 01:25 02/21/18 05:51 Temperature 98.8 F Pulse Rate 118 H 88 92 H Respiratory Rate 16 20 20 Blood Pressure 213/122 H 183/94 H 185/94 H Pulse Oximetry 96 93 L 96 Intake & Output 02/20/18 02/21/18 02/21/18 18:59 06:59 18:59 Intake Total 1700 / 1700 Balance 1700 / 1700 Weight 61.235 kg Intake: IV 1700 / 1700 Magnesium Sulfate 1 gm/D5W 100 100 / 100 ml Premix 100 ML @ 100 mls/hr IV.SIG ONCE ONE Rx#:[id number] NS Inj 1,000 ML @ Wide Open IV. 1000 / 1000 SIG BOLUS ONE Rx#:[id number] NS Inj 500 ML @ Wide Open IV. 500 / 500 SIG BOLUS ONE Rx#:[id number] Flagyl 500 MG Inj 100 ML @ 100 100 / 100 mls/hr IV.SIG ONCE ONE Rx#: [id number] - Constitutional no acute distress - Routine HEENT Exam Eye: Present: PERRL - Routine Neck Exam Present: supple - Routine Respiratory Exam Present: CTA bilaterally - Routine Cardiovascular Exam Present: RRR - Routine Abdominal Exam Present: soft, tenderness (epigastric tenderness.) - Routine Extremities Exam Comments: no pedal edema. - Routine Neurological Exam Present: alert, oriented X3 Results - Labs CBC & Chem 7: 02/21/18 00:27 02/21/18 01:12 Labs: Short CBC 02/21/18 Range/Units 00:27 WBC 9.6 (4.0-11.0) th/mm3 Hgb 15.2 (11.6-15.3) gm/dL Hct 45.1 (35.0-46.0) % Plt Count 329 (150-450) th/mm3 BMP 02/21/18 01:12 Sodium 139 Potassium 3.8 Chloride 102 Carbon Dioxide 27.6 BUN 6 L Creatinine 0.64 Calcium 9.3 Cardiac Enzymes 02/21/18 Range/Units 01:12 Total Creatine Kinase 411 H (26-192) U/L CK-MB (CK-2) 4.7 H (0.5-3.6) ng/mL Troponin I Less than 0.02 L (0.02-0.05) ng/mL Liver Function 02/21/18 Range/Units 01:12 Total Bilirubin 0.7 (0.2-1.0) mg/dL AST 48 H (15-37) U/L ALT 41 (10-53) U/L Alkaline Phosphatase 121 H (45-117) U/L Albumin 3.5 (3.4-5.0) g/dL Urine 02/21/18 Range/Units 02:59 Urine Color Yellow (Yellw/Straw) Urine Clarity Hazy H (Clear) Urine pH 7.0 (5.0-8.5) Ur Specific Boyle 1.015 (1.002-1.035) Urine Protein 30 H (Neg-Trace) mg/dL Urine Glucose (UA) Negative (Negative) mg/dL - Imaging Impressions Chest X-Ray 02/21/18 00:05 CONCLUSION: Negative examination. Abdomen/Pelvis CT 02/21/18 02:51 CONCLUSION: Proximal predominant colitis Caprini VTE Risk Assessment Caprini VTE Risk Assessment: Moderate/High Risk (score >= 2) VTE Pharmacological Exception Reason: Active bleeding Caprini Risk Assessment Model: Point Value = 1 Point Value = 2 Point Value = 3 Point Value = 5 Age 41-60 Minor surgery BMI > 25 kg/m2 Swollen legs Varicose veins or History of unexplained or recurrent spontaneous Oral contraceptives or hormone replacement Sepsis (< 1 month) Serious lung disease, including pneumonia (< 1 month) Abnormal pulmonary function Acute myocardial infarction Congestive heart failure (< 1 month) History of inflammatory bowel disease Medical patient at bed rest Age 61-74 Arthroscopic surgery Major open surgery (> 45 min) Laparoscopic surgery (> 45 min) Malignancy Confined to bed (> 72 hours) Immobilizing plaster cast Central venous access Age >= 75 History of VTE Family history of VTE Factor V Leiden Prothrombin [id number] Lupus anticoagulant Anticardiolipin antibodies Elevated serum homocysteine Heparin-induced thrombocytopenia Other congenital or acquired thrombophilia Stroke (< 1 month) Elective arthroplasty Hip, pelvis, or leg fracture Acute spinal cord injury (< 1 month) Prophylaxis Regimen: Total Risk Factor Score Risk Level Prophylaxis Regimen 0-1 Low Early ambulation 2 Moderate Order ONE of the following: *Sequential Compression Device (SCD) *Heparin 5000 units SQ BID 3-4 Higher Order ONE of the following medications: *Heparin 5000 units SQ TID *Enoxaparin/Lovenox 40 mg SQ daily (WT < 150 kg, CrCl > 30 mL/min) *Enoxaparin/Lovenox 30 mg SQ daily (WT < 150 kg, CrCl > 10-29 mL/min) *Enoxaparin/Lovenox 30 mg SQ BID (WT < 150 kg, CrCl > 30 mL/min) AND/OR *Sequential Compression Device (SCD) 5 or more Highest Order ONE of the following medications: *Heparin 5000 units SQ TID (Preferred with Epidurals) *Enoxaparin/Lovenox 40 mg SQ daily (WT < 150 kg, CrCl > 30 mL/min) *Enoxaparin/Lovenox 30 mg SQ daily (WT < 150 kg, CrCl > 10-29 mL/min) *Enoxaparin/Lovenox 30 mg SQ BID (WT < 150 kg, CrCl > 30 mL/min) AND *Sequential Compression Device (SCD) Assessment and Plan - Plan A/P - colitis continue with Cipro and Flagyl- keep NPO- will follow the stool studies- consult GI continue with supportive care with IV fluid, pain control and antiemetics as needed. -history of chronic pancreatitis- continue pain management -DVT prophylaxis with SCD's. Discussed Condition With: the patient. Discharge Planning: home when stable.
[2018-02-21] MEDS: Sodium Chloride 0.9% 2 ML Flush BID IV.FLUSH SCH ×2 (10:15→22:26)
[2018-02-21] MEDS: Pantoprazole Inj 40 MG Vial IV.PUSH SCH (10:15)
--- NOTE | 2018-02-21 14:15 | P.CONGI ---
History of Present Illness Consult date: 02/21/18 Consult reason: Colitis Rectal bleeding Chief complaint: Colitis History of Present Illness: This patient is a 57-year-old female with history of chronic pancreatitis. Patient also has a history of anxiety, chronic pain, insomnia and surgical history of cholecystectomy. She presented to the emergency room on 02/21/2018 with complaint of abdominal pain. On consultation, patient states she began to have sharp burning type abdominal pain right upper quadrant. States this pain radiated around to her back and was accompanied by chills. Patient states that she has had bright red blood in her stool for 5 days. Reports that it started after 2-3 days of being constipated. Constipation was relieved by over-the- counter stool softeners-Colace. Last colonoscopy per patient recollection was 1 year ago. She states she underwent removal of benign polyps all of which were benign. Of note, patient routinely takes oxycodone 15 mg every 4 hours and utilizes fentanyl 25 mcg patch for chronic pain. Patient reports occasional symptoms of acid reflux for which she states Protonix daily is effective. Denies any difficulty or pain with swallowing. Patient denies any known family history of gastrointestinal disorders. Denies any use of tobacco or alcohol products. Our service has been consulted to evaluate patient for rectal bleeding/colitis. 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 Hx of chronic pancreatitis Insomnia - Surgical History Surgical History: Surgical History (Last Reviewed 02/21/18 @ 08:25 by Spencer Morales MD) Hx of cholecystectomy - Family History Family History: Family History (Last Reviewed 02/21/18 @ 08:25 by Spencer Morales MD) Other Heart disease - Tobacco History Second Hand Smoke Exposure: Yes Tobacco Use In Past 30 Days: Yes Smoking Status: Former smoker Tobacco Type: Cigarettes - Alcohol History How Often Do You Have a Drink Containing Alcohol: Never - Substance Use History Substance History: No History of Abuse - Travel History Recent Travel in the [place] Within the Last 8 Weeks: No Recent Travel Out of the Country Within the Last 8 Weeks: No - Immunization History Tetanus Immunization: <5 Years <Daphne Mallory - Last Filed: 02/21/18 14:00> - Medical History Medical History: Medical History (Last Reviewed 02/21/18 @ 08:25 by Spencer Morales MD) Anxiety Chronic pain 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 Hx of chronic pancreatitis Insomnia - Surgical History Surgical History: Surgical History (Last Reviewed 02/21/18 @ 08:25 by Spencer Morales MD) Hx of cholecystectomy - Family History Family History: Family History (Last Reviewed 02/21/18 @ 08:25 by Spencer Morales MD) Other Heart disease <Dot Fenton - Last Filed: 02/21/18 18:51> Medications and Allergies Active Medications: Active Medications Al Hydroxide/Mg Hydroxide (Milk Of Magnesia Liq) 30 ml PO Q12H PRN PRN Reason: Mild Constipation Bisacodyl (Dulcolax Supp) 10 mg RECTAL DAILY PRN PRN Reason: SEVERE CONSITIPATION Enalaprilat (Vasotec Inj) 1.25 mg IV.PUSH Q8H PRN PRN Reason: SBP > 180 or DBP > 100 Last Admin: 02/21/18 13:36 Dose: 1.25 mg Ciprofloxacin/Dextrose (Cipro 400 Mg/200 Ml Inj) 400 mg in 200 mls @ 200 mls/ hr IV.SIG Q12H JOSE G Sodium Chloride (Ns Inj) 1,000 mls @ 100 mls/hr IV.CONT .Q10H JOSE G Last Infusion: 02/21/18 12:59 Dose: 100 mls/hr Metronidazole/Sodium Chloride (Flagyl 500 Mg Inj) 100 mls @ 100 mls/hr IV.SIG Q6H JOSE G Last Infusion: 02/21/18 12:40 Dose: Infused Lactulose (Lactulose Liq) 30 ml PO DAILY PRN PRN Reason: SEVERE CONSITIPATION Morphine Sulfate (Morphine Inj) 2 mg IV.PUSH Q3H PRN PRN Reason: PAIN 3-5; IF UABLE TO TAKE PO Morphine Sulfate (Morphine Inj) 4 mg IV.PUSH Q3H PRN PRN Reason: PAIN 6-10;IF UNABLE TO TAKE PO Last Admin: 02/21/18 13:00 Dose: 4 mg Morphine Sulfate (Morphine Inj) 4 mg IV.PUSH Q3H PRN PRN Reason: BREAKTHROUGH PAIN Naloxone HCl (Narcan Inj) 0.4 mg IV.PUSH UNSCH PRN PRN Reason: SEE LABEL COMMENTS Ondansetron HCl (Zofran Odt) 4 mg PO Q6H PRN PRN Reason: NAUSEA OR VOMITING Ondansetron HCl (Zofran Inj) 4 mg IV.PUSH Q6H PRN PRN Reason: NAUSEA OR VOMITING Last Admin: 02/21/18 06:57 Dose: 4 mg Oxycodone/Acetaminophen (Percocet 10/325 Mg) 1 tab PO Q6H PRN PRN Reason: PAIN SCALE 6 TO 10 Oxycodone/Acetaminophen (Percocet 5/325 Mg) 1 tab PO Q6H PRN PRN Reason: PAIN SCALE 3 TO 5 Pantoprazole Sodium (Protonix Inj) 40 mg IV.PUSH Q24H [facility] Last Admin: 02/21/18 10:15 Dose: 40 mg Polyethylene Glycol/Electrolytes (Colyte Liq) 4,000 ml PO ONCE ONE Stop: 02/21/18 16:01 Promethazine HCl (Phenergan Supp) 25 mg RECTAL Q6H PRN PRN Reason: NAUSEA OR VOMITING Promethazine HCl (Phenergan) 25 mg PO Q6H PRN PRN Reason: NAUSEA OR VOMITING Sennosides (Senokot) 17.2 mg PO Q12H PRN PRN Reason: Moderate Constipation Sodium Chloride (Ns Flush) 2 ml IV.FLUSH BID [facility] Last Admin: 02/21/18 10:15 Dose: 2 ml Sodium Chloride (Ns Flush) 2 ml IV.FLUSH PRN PRN PRN Reason: FLUSH AFTER USING IV ACCESS <Daphne Mallory - Last Filed: 02/21/18 14:00> Active Medications: Active Medications Al Hydroxide/Mg Hydroxide (Milk Of Magnesia Liq) 30 ml PO Q12H PRN PRN Reason: Mild Constipation Bisacodyl (Dulcolax Supp) 10 mg RECTAL DAILY PRN PRN Reason: SEVERE CONSITIPATION Enalaprilat (Vasotec Inj) 1.25 mg IV.PUSH Q8H PRN PRN Reason: SBP > 180 or DBP > 100 Last Admin: 02/21/18 13:36 Dose: 1.25 mg Ciprofloxacin/Dextrose (Cipro 400 Mg/200 Ml Inj) 400 mg in 200 mls @ 200 mls/ hr IV.SIG Q12H JOSE G Last Admin: 02/21/18 16:13 Dose: 200 mls/hr Sodium Chloride (Ns Inj) 1,000 mls @ 100 mls/hr IV.CONT .Q10H JOSE G Last Admin: 02/21/18 14:42 Dose: 100 mls/hr Metronidazole/Sodium Chloride (Flagyl 500 Mg Inj) 100 mls @ 100 mls/hr IV.SIG Q6H [facility] Last Admin: 02/21/18 17:31 Dose: 100 mls/hr Lactulose (Lactulose Liq) 30 ml PO DAILY PRN PRN Reason: SEVERE CONSITIPATION Morphine Sulfate (Morphine Inj) 2 mg IV.PUSH Q3H PRN PRN Reason: breakthrough pain Last Admin: 02/21/18 16:13 Dose: 2 mg Naloxone HCl (Narcan Inj) 0.4 mg IV.PUSH UNSCH PRN PRN Reason: SEE LABEL COMMENTS Ondansetron HCl (Zofran Odt) 4 mg PO Q6H PRN PRN Reason: NAUSEA OR VOMITING Last Admin: 02/21/18 14:42 Dose: 4 mg Ondansetron HCl (Zofran Inj) 4 mg IV.PUSH Q6H PRN PRN Reason: NAUSEA OR VOMITING Last Admin: 02/21/18 06:57 Dose: 4 mg Oxycodone/Acetaminophen (Percocet 10/325 Mg) 1 tab PO Q6H PRN PRN Reason: PAIN SCALE 6 TO 10 Last Admin: 02/21/18 14:33 Dose: 1 tab Oxycodone/Acetaminophen (Percocet 5/325 Mg) 1 tab PO Q6H PRN PRN Reason: PAIN SCALE 3 TO 5 Pantoprazole Sodium (Protonix Inj) 40 mg IV.PUSH Q24H JOSE G Last Admin: 02/21/18 10:15 Dose: 40 mg Promethazine HCl (Phenergan Supp) 25 mg RECTAL Q6H PRN PRN Reason: NAUSEA OR VOMITING Promethazine HCl (Phenergan) 25 mg PO Q6H PRN PRN Reason: NAUSEA OR VOMITING Last Admin: 02/21/18 17:40 Dose: 25 mg Sennosides (Senokot) 17.2 mg PO Q12H PRN PRN Reason: Moderate Constipation Sodium Chloride (Ns Flush) 2 ml IV.FLUSH BID JOSE G Last Admin: 02/21/18 10:15 Dose: 2 ml Sodium Chloride (Ns Flush) 2 ml IV.FLUSH PRN PRN PRN Reason: FLUSH AFTER USING IV ACCESS <Dot Fenton - Last Filed: 02/21/18 18:51> Allergies Allergy/AdvReac Type Severity Reaction Status Date / Time diatrizoate meglumine Allergy Severe "BLACKED Verified 02/20/18 19:44 OUT" gadobenic acid Allergy Severe "BLACKED Verified 02/20/18 19:44 OUT" gadodiamide Allergy Severe "BLACKED Verified 02/20/18 19:44 OUT" gadoteridol Allergy Severe "BLACKED Verified 02/20/18 19:44 OUT" ibuprofen Allergy Severe Tachycardia Verified 02/20/18 19:44 iodixanol Allergy Severe "BLACKED Verified 02/20/18 19:44 OUT" iohexol Allergy Severe "BLACKED Verified 02/20/18 19:44 OUT" Home Medications Medication Instructions Recorded Confirmed Type lorazepam 0.5 mg PO BID PRN 01/06/18 02/21/18 History ondansetron 8 mg PO TID PRN 01/06/18 02/21/18 History oxycodone 15 mg PO Q4-6H PRN 01/06/18 02/21/18 History pantoprazole 40 mg PO DAILY 01/06/18 02/21/18 History zolpidem 1 tab PO HS PRN 01/06/18 02/21/18 History fentanyl 25 mg OTHER DIRECTED PRN 02/21/18 02/21/18 History promethazine [Phenergan] 25 mg [place] PRN PRN 02/21/18 02/21/18 History Exam Vital signs: Vital Signs 02/20/18 19:43 02/21/18 01:25 02/21/18 05:51 Temperature 98.8 F Pulse Rate 118 H 88 92 H Respiratory Rate 16 20 20 Blood Pressure 213/122 H 183/94 H 185/94 H Pulse Oximetry 96 93 L 96 02/21/18 08:28 02/21/18 10:16 02/21/18 12:00 Temperature 98.4 F Pulse Rate 77 78 Respiratory Rate 16 16 18 Blood Pressure 161/82 H 163/91 H Pulse Oximetry 97 98 02/21/18 13:36 Temperature 98.5 F Pulse Rate 75 Respiratory Rate 20 Blood Pressure 178/108 H Pulse Oximetry 97 Intake & Output 02/20/18 02/21/18 02/21/18 18:59 06:59 18:59 Intake Total 1700 / 1700 300 / 300 Balance 1700 / 1700 300 / 300 Weight 61.235 kg 71.2 kg Intake: IV 1700 / 1700 300 / 300 Cipro 400 MG/200 ML Inj 400 mg 200 / 200 In 200 ml @ 200 mls/hr IV.SIG ONCE ONE Rx#:[id number] Magnesium Sulfate 1 gm/D5W 100 100 / 100 ml Premix 100 ML @ 100 mls/hr IV.SIG ONCE ONE Rx#:[id number] NS Inj 1,000 ML @ Wide Open IV. 1000 / 1000 SIG BOLUS ONE Rx#:[id number] NS Inj 500 ML @ Wide Open IV. 500 / 500 SIG BOLUS ONE Rx#:[id number] Flagyl 500 MG Inj 100 ML @ 100 100 / 100 100 / 100 mls/hr IV.SIG Q6H JOSE G Rx#: [id number] Other: Weight On Admission 71.2 kg - Constitutional no acute distress - Routine HEENT Exam Head: Present: normocephalic - Routine Respiratory Exam Present: CTA bilaterally. Absent: accessory muscle use - Routine Cardiovascular Exam Present: RRR - Routine Abdominal Exam Present: soft, normoactive bowel sounds, tenderness. Absent: distended, guarding, firm - Routine Extremities Exam Absent: edema - Routine Skin Exam Present: dry, warm - Routine Neurological Exam Present: alert, oriented X3 - Routine Psychiatric Exam Present: normal affect, cooperative <Mallory,Daphne - Last Filed: 02/21/18 14:00> Vital signs: Vital Signs 02/20/18 19:43 02/21/18 01:25 02/21/18 05:51 Temperature 98.8 F Pulse Rate 118 H 88 92 H Respiratory Rate 16 20 20 Blood Pressure 213/122 H 183/94 H 185/94 H Pulse Oximetry 96 93 L 96 02/21/18 08:28 02/21/18 10:16 02/21/18 12:00 Temperature 98.4 F Pulse Rate 77 78 Respiratory Rate 16 16 18 Blood Pressure 161/82 H 163/91 H Pulse Oximetry 97 98 02/21/18 13:36 02/21/18 16:00 Temperature 98.5 F 98.6 F Pulse Rate 75 80 Respiratory Rate 20 20 Blood Pressure 178/108 H 164/89 H Pulse Oximetry 97 96 Intake & Output 02/20/18 02/21/18 02/21/18 18:59 06:59 18:59 Intake Total 1700 / 1700 1100 / 1100 Balance 1700 / 1700 1100 / 1100 Weight 61.235 kg 71.2 kg Intake: IV 1700 / 1700 1100 / 1100 NS Inj 1,000 ML @ 100 mls/hr IV 800 / 800 .CONT .Q10H [facility] Rx#:[id number] Cipro 400 MG/200 ML Inj 400 mg 200 / 200 In 200 ml @ 200 mls/hr IV.SIG ONCE ONE Rx#:[id number] Magnesium Sulfate 1 gm/D5W 100 100 / 100 ml Premix 100 ML @ 100 mls/hr IV.SIG ONCE ONE Rx#:[id number] NS Inj 1,000 ML @ Wide Open IV. 1000 / 1000 SIG BOLUS ONE Rx#:[id number] NS Inj 500 ML @ Wide Open IV. 500 / 500 SIG BOLUS ONE Rx#:[id number] Flagyl 500 MG Inj 100 ML @ 100 100 / 100 100 / 100 mls/hr IV.SIG Q6H [facility] Rx#: [id number] Other: # Voids 1 Weight On Admission 71.2 kg <Dot Fenton - Last Filed: 02/21/18 18:51> Results - Labs CBC & Chem 7: 02/21/18 00:27 02/21/18 01:12 Labs: Laboratory Results - last 24 hr 02/21/18 02/21/18 02/21/18 00:27 00:27 00:27 WBC 9.6 RBC 4.52 Hgb 15.2 Hct 45.1 MCV 99.8 MCH 33.7 MCHC 33.7 RDW 20.4 H Plt Count 329 MPV 8.6 Neut % (Auto) 78.4 H Lymph % (Auto) 13.3 [place] % (Auto) 6.9 Eos % (Auto) 0.2 Baso % (Auto) 1.2 Neut # (Auto) 7.5 Lymph # (Auto) 1.3 [place] # (Auto) 0.7 Eos # (Auto) 0.0 Baso # (Auto) 0.1 WBC Differential . Differential Comment Auto diff final PT 11.0 INR 1.1 APTT 28.4 Sodium Potassium Chloride Carbon Dioxide Anion Gap BUN Creatinine Estimated GFR Random Glucose Lactic Acid 1.4 Calcium Magnesium Total Bilirubin AST ALT Alkaline Phosphatase Total Creatine Kinase CK-MB (CK-2) CK-MB (CK-2) % Troponin I Total Protein Albumin Lipase Urine Color Urine Clarity Urine pH Ur Specific [place] Urine Protein Urine Glucose (UA) Urine Ketones Urine Occult Blood Urine Nitrate Urine Bilirubin Urine Urobilinogen Ur Leukocyte Esterase Urine RBC Urine WBC Ur Squamous Epith Cells Amorphous Sediment Urine Bacteria Hyaline Casts Urine Mucus Micro UA Comment Ur Microscopic Review Urine Culture Comments 02/21/18 02/21/18 01:12 02:59 WBC RBC Hgb Hct MCV MCH MCHC RDW Plt Count MPV Neut % (Auto) Lymph % (Auto) [place] % (Auto) Eos % (Auto) Baso % (Auto) Neut # (Auto) Lymph # (Auto) [place] # (Auto) Eos # (Auto) Baso # (Auto) WBC Differential Differential Comment PT INR APTT Sodium 139 Potassium 3.8 Chloride 102 Carbon Dioxide 27.6 Anion Gap 9 BUN 6 L Creatinine 0.64 Estimated GFR Greater than 89 Random Glucose 126 H Lactic Acid Calcium 9.3 Magnesium 1.4 L Total Bilirubin 0.7 AST 48 H ALT 41 Alkaline Phosphatase 121 H Total Creatine Kinase 411 H CK-MB (CK-2) 4.7 H CK-MB (CK-2) % 1.1 Troponin I Less than 0.02 L Total Protein 8.7 H Albumin 3.5 Lipase 133 Urine Color Yellow Urine Clarity Hazy H Urine pH 7.0 Ur Specific [place] 1.015 Urine Protein 30 H Urine Glucose (UA) Negative Urine Ketones Negative Urine Occult Blood Negative Urine Nitrate Negative Urine Bilirubin Negative Urine Urobilinogen Less than 2 Ur Leukocyte Esterase Trace H Urine RBC 1 Urine WBC 5 Ur Squamous Epith Cells 4 Amorphous Sediment Rare H Urine Bacteria Rare H Hyaline Casts 3 Urine Mucus Many H Micro UA Comment Culture not ind Ur Microscopic Review Not Reportable Urine Culture Comments Culture not ind - Imaging Impressions Chest X-Ray 02/21/18 00:05 CONCLUSION: Negative examination. Abdomen/Pelvis CT 02/21/18 02:51 CONCLUSION: Proximal predominant colitis <MalloryDaphne - Last Filed: 02/21/18 14:00> - Labs CBC & Chem 7: 02/21/18 00:27 02/21/18 01:12 Labs: Laboratory Results - last 24 hr 02/21/18 02/21/18 02/21/18 00:27 00:27 00:27 WBC 9.6 RBC 4.52 Hgb 15.2 Hct 45.1 MCV 99.8 MCH 33.7 MCHC 33.7 RDW 20.4 H Plt Count 329 MPV 8.6 Neut % (Auto) 78.4 H Lymph % (Auto) 13.3 [place] % (Auto) 6.9 Eos % (Auto) 0.2 Baso % (Auto) 1.2 Neut # (Auto) 7.5 Lymph # (Auto) 1.3 [place] # (Auto) 0.7 Eos # (Auto) 0.0 Baso # (Auto) 0.1 WBC Differential . Differential Comment Auto diff final PT 11.0 INR 1.1 APTT 28.4 Sodium Potassium Chloride Carbon Dioxide Anion Gap BUN Creatinine Estimated GFR Random Glucose Lactic Acid 1.4 Calcium Magnesium Total Bilirubin AST ALT Alkaline Phosphatase Total Creatine Kinase CK-MB (CK-2) CK-MB (CK-2) % Troponin I Total Protein Albumin Lipase Urine Color Urine Clarity Urine pH Ur Specific [place] Urine Protein Urine Glucose (UA) Urine Ketones Urine Occult Blood Urine Nitrate Urine Bilirubin Urine Urobilinogen Ur Leukocyte Esterase Urine RBC Urine WBC Ur Squamous Epith Cells Amorphous Sediment Urine Bacteria Hyaline Casts Urine Mucus Micro UA Comment Ur Microscopic Review Urine Culture Comments 02/21/18 02/21/18 01:12 02:59 WBC RBC Hgb Hct MCV MCH MCHC RDW Plt Count MPV Neut % (Auto) Lymph % (Auto) [place] % (Auto) Eos % (Auto) Baso % (Auto) Neut # (Auto) Lymph # (Auto) [place] # (Auto) Eos # (Auto) Baso # (Auto) WBC Differential Differential Comment PT INR APTT Sodium 139 Potassium 3.8 Chloride 102 Carbon Dioxide 27.6 Anion Gap 9 BUN 6 L Creatinine 0.64 Estimated GFR Greater than 89 Random Glucose 126 H Lactic Acid Calcium 9.3 Magnesium 1.4 L Total Bilirubin 0.7 AST 48 H ALT 41 Alkaline Phosphatase 121 H Total Creatine Kinase 411 H CK-MB (CK-2) 4.7 H CK-MB (CK-2) % 1.1 Troponin I Less than 0.02 L Total Protein 8.7 H Albumin 3.5 Lipase 133 Urine Color Yellow Urine Clarity Hazy H Urine pH 7.0 Ur Specific [place] 1.015 Urine Protein 30 H Urine Glucose (UA) Negative Urine Ketones Negative Urine Occult Blood Negative Urine Nitrate Negative Urine Bilirubin Negative Urine Urobilinogen Less than 2 Ur Leukocyte Esterase Trace H Urine RBC 1 Urine WBC 5 Ur Squamous Epith Cells 4 Amorphous Sediment Rare H Urine Bacteria Rare H Hyaline Casts 3 Urine Mucus Many H Micro UA Comment Culture not ind Ur Microscopic Review Not Reportable Urine Culture Comments Culture not ind - Imaging Impressions Chest X-Ray 02/21/18 00:05 CONCLUSION: Negative examination. Abdomen/Pelvis CT 02/21/18 02:51 CONCLUSION: Proximal predominant colitis <Dot Fenton - Last Filed: 02/21/18 18:51> Assessment and Plan (1) Rectal bleeding Status: Acute Code(s): K62.5 - Hemorrhage of anus and rectum (2) Colitis Status: Acute Code(s): K52.9 - Noninfective gastroenteritis and colitis, unspecified - Plan This patient is a 57-year-old female with history of chronic pancreatitis. Patient also has a history of anxiety, chronic pain, insomnia and surgical history of cholecystectomy. She presented to the emergency room on 02/21/2018 with complaint of abdominal pain. On consultation, patient states she began to have sharp burning type abdominal pain right upper quadrant. States this pain radiated around to her back and was accompanied by chills. Patient states that she has had bright red blood in her stool for 5 days. Reports that it started after 2-3 days of being constipated. Constipation was relieved by over-the- counter stool softeners-Colace. Last colonoscopy per patient recollection was 1 year ago. She states she underwent removal of benign polyps all of which were benign. Of note, patient routinely takes oxycodone 15 mg every 4 hours and utilizes fentanyl 25 mcg patch for chronic pain. Patient reports occasional symptoms of acid reflux for which she states Protonix daily is effective. Denies any difficulty or pain with swallowing. Patient denies any known family history of gastrointestinal disorders. Denies any use of tobacco or alcohol products. Our service has been consulted to evaluate patient for rectal bleeding/colitis Rectal bleeding/colitis 02/21/2018 CT abdomen and pelvis revealed the following findings: Proximal predominant colitis WBC 9.6 hemoglobin 15.2 hematocrit 45.1 total bilirubin 0.7 AST 48 ALT 41 alk phos 121 lipase 133 Plan -N.p.o. -Obtain consent for colonoscopy -William prep -Colonoscopy in the a.m. -Monitor patient for bleeding -Continue IV antibiotics -Continue IV hydration -PPI -Bowel regimen -Analgesic and antiemetic as per attending -Supportive care -Further recommendations to follow based on patient status and findings This patient has been seen by myself and Dr. Fenton and this note is written on her behalf - Attending Attestation Dr. Fenton <Daphne Mallory - Last Filed: 02/21/18 14:00> (1) Rectal bleeding Status: Acute Code(s): K62.5 - Hemorrhage of anus and rectum (2) Colitis Status: Acute Code(s): K52.9 - Noninfective gastroenteritis and colitis, unspecified - Attending Attestation seen, examined agree with above colonoscopy in am stool studies <Dot Fenton - Last Filed: 02/21/18 18:51>
[2018-02-21] MEDS: oxyCODONE/Acetaminophen 10/325 Tablet PO PRN ×2 (14:33→22:28)
[2018-02-21] MEDS ORDERED: PEG 3350/E-Lyte Soln 4000 ML Bottle PO ONE (16:00)
[2018-02-21] MEDS: Morphine Sulfate Inj 2 MG/ML Vial IV.PUSH PRN ×3 (16:13→23:07)
[2018-02-21] MEDS: Ciprofloxacin 400 MG/200 ML 400 MG/200 ML PIGGYBACK IV.SIG SCH (16:13)
[2018-02-21] MEDS ORDERED: Magnesium Citrate Liq 300 ML Bottle PO ONE (18:53)
[2018-02-22] MEDS ORDERED: HYDROmorphone PF Inj 1 MG/ML Ampul IV.PUSH ONE (00:15)
[2018-02-22] MEDS: Ciprofloxacin 400 MG/200 ML 400 MG/200 ML PIGGYBACK IV.SIG SCH ×2 (03:36→17:49)
[2018-02-22] MEDS: Morphine Sulfate Inj 2 MG/ML Vial IV.PUSH PRN ×2 (03:37→06:33)
[2018-02-22] MEDS: oxyCODONE/Acetaminophen 10/325 Tablet PO PRN ×4 (04:35→23:12)
[2018-02-22] MEDS: Sod Chloride 0.9% Inj 1,000 ML IV.CONT SCH ×3 (04:42→22:19)
[2018-02-22] MEDS ORDERED: Sodium Chlor 0.9% Inj 500 ML IV.CONT ONE (05:15)
[2018-02-22] MEDS ORDERED: Chlorhexidine Gluconate 2% 1 Pack (2 Cloths) TOPICAL ONE (05:15)
[2018-02-22 07:32] LABS: Baso # (Auto) 0.1 th/mm3 (0.0-0.2); Baso % (Auto) 1.7 % (0.0-2.0); Eos # (Auto) 0.1 th/mm3 (0.0-0.4); Eos % (Auto) 2.7 % (0.0-4.0); Hematocrit 35.9 % (35.0-46.0); Hemoglobin 11.8 gm/dL (11.6-15.3); Lymph # (Auto) 1.3 th/mm3 (1.0-4.8); Lymph % (Auto) 24.6 % (9.0-44.0); Mean Corpuscular HGB Conc 32.7 % (32.0-36.0); Mean Corpuscular Hemoglobin 33.5 pg (27.0-34.0); Mean Corpuscular Volume 102.5 fL (80.0-100.0); Mean Platelet Volume 8.4 fL (7.0-11.0); Mono # (Auto) 0.7 th/mm3 (0.0-0.9); Mono % (Auto) 12.8 % (0.0-8.0); Neut # (Auto) 3.2 th/mm3 (1.8-7.7); Neut % (Auto) 58.2 % (16.0-70.0); Platelet Count 196 th/mm3 (150-450); Red Blood Count 3.51 mil/mm3 (4.00-5.30); Red Cell Distribution Width 20.1 % (11.6-17.2); White Blood Count 5.5 th/mm3 (4.0-11.0)
[2018-02-22 07:51] LABS: Albumin 2.9 g/dL (3.4-5.0); Anion Gap 11 meq/L (5-15); Aspartate Aminotransferase 47 U/L (15-37); Blood Urea Nitrogen 4 mg/dL (7-18); Calcium 8.8 mg/dL (8.5-10.1); Carbon Dioxide 24.1 meq/L (21.0-32.0); Chloride 105 meq/L (98-107); Glomerular Filtration Rate Greater Than 89 mL/min (>89); Glucose,Random 95 mg/dL (74-106); Potassium 3.4 meq/L (3.5-5.1); Sodium 140 meq/L (136-145)
[2018-02-22 08:09] LABS: Alanine Aminotransferase 33 U/L (10-53); Alkaline Phosphatase 86 U/L (45-117); Total Protein 6.3 g/dL (6.4-8.2)
[2018-02-22] MEDS ORDERED: fentaNYL Citrate Inj 100 MCG/2 ML Ampul ONE (08:54)
[2018-02-22] MEDS ORDERED: Potassium Chlor 20 mEq Premix 20 MEQ/100 ML PIGGYBACK IV.SIG SCH (09:00)
[2018-02-22] MEDS: Pantoprazole Inj 40 MG Vial IV.PUSH SCH (09:57)
--- NOTE | 2018-02-22 10:14 | GIPROC ---
[facility] [address] [facility]. [facility], [address] COLONOSCOPY PROCEDURE REPORT EXAM DATE: 02/22/2018 PATIENT NAME: Madonna Hernandez MR #: [id number] BIRTHDATE: 1960 ENDOSCOPIST: Dot Fenton MD ORDER #: [id number] PRE PRESS PROOFER: Lyle Kent and Phoebe Holland STATUS: inpatient INDICATIONS: The patient is a 57 yr old female here for a colonoscopy due to abdominal pain, diarrhea, abnormal ct PROCEDURE PERFORMED: Colonoscopy with biopsy MEDICATIONS: Per Anesthesia and None. PREP QUALITY: good PREP TYPE:Other: ESTIMATED BLOOD LOSS: None CONSENT: The patient understands the risks and benefits of the procedure and understands that these risks include, but are not limited to: sedation, allergic reaction, infection, perforation and/or bleeding. Alternative means of evaluation and treatment include, among others: physical exam, x-rays, and/or surgical intervention. The patient elects to proceed with this endoscopic procedure. medical equipment was checked for proper function. Hand hygiene and appropriate measures for infection prevention was taken. After the risks, benefits and alternatives of the procedure were thoroughly explained, Informed consent was verified, confirmed and timeout was successfully executed by the treatment team. A digital exam revealed hemorrhoids The Pentax [id number] endoscope was introduced through the anus and advanced to the cecum, which was identified by both the appendix and ileocecal valve. The instrument was then slowly withdrawn as the colon was fully examined. COLON FINDINGS: Diminutive polyp descending-biopsy random biopsy from ascending and descending. Retroflexed views revealed internal hemorrhoids and Retroflexed views revealed small internal hemorrhoids The scope was then completely withdrawn from the patient and the procedure terminated. PROCEDURE WITHDRAWAL TIME:6minutes ADVERSE EVENTS: There were no complications. IMPRESSIONS: 1. Diminutive polyp descending-biopsy random biopsy from ascending and descending 2. Retroflexed views revealed internal hemorrhoids 3. Retroflexed views revealed small internal hemorrhoids 4. Revealed hemorrhoids RECOMMENDATIONS: 1. Await biopsy results. Biopsy results will not be ready for 7-10 days. If you don't hear from us in two weeks, call our office for results. 2. Benefiber 2 tsp daily 3. Probiotics from any [employer] or health food store 4. Mrcp if negative us abd with doppler RECALL: Return 5 years Colonoscopy Dot Fenton MD eSigned: Dot Fenton MD 02/22/2018 10:14 AM cc:
[2018-02-22] MEDS: HYDROmorphone PF Inj 1 MG/ML Ampul IV.PUSH PRN ×4 (11:26→23:44)
--- NOTE | 2018-02-22 12:27 | P.DIET ---
Nutritional Evaluation Type of nutrition evaluation: initial Nutrition screening: Weight Loss > 10 lbs Subjective Subjective Comments: Reports unknown amount of weight loss d/t chronic pancreatitis. Poor intake noted. Objective - Diagnosis Colitis - Objective Body Mass Index: 24.1 % IBW: 114 (IBW = 135#) Energy Needs - Lower Range (kCal/kg): 25 Energy Needs - Upper Range (kCal/kg): 30 Lower Limit kCal/kg (kCals): 1,745 Upper Limit kCal/kg (kCals): 2,094 Lower Limit Protein Factor (Grams per Kg): 1.0 Upper Limit Protein Factor (Grams per Kg): 1.5 Lower Protein Needs (Protein): 70 Upper Protein Needs (Protein): 105 Fluid Factor (ml/kg): 30 Estimated Fluid Needs (ml): 2,094 Dietitian Reviewed in Medical Record: Current diet, Curent medications, Intake & Output, Labs, Medical history Diet Order: Full Liquid Assessment Assessment: Pt is at high nutrition risk 2' to dx and unintentional weight loss. She presents with a BMI of 24.1 and poor po intake. Currently receiving full liquid diet per GI. GI work-up in progress. RD will monitor diet advance, po intake and assess for the need of supplements. Recommendations: Advance diet as able RD following Dietitian to Monitor: Lab values, Intake & Output, Diet tolerance, Weight change , PO Intake, Diet advancement, Medical course
--- NOTE | 2018-02-22 15:11 | P.PNIM ---
Subjective Interval history: C. difficile toxin positive for antigen and DNA testing. Negative for toxin. Patient continues to have diarrhea and abdominal pain. Colonoscopy revealed no specific etiology. Physical Exam Vital signs: Vital Signs 02/21/18 16:00 02/21/18 20:00 02/22/18 00:00 Temperature 98.6 F 97.7 F 97.9 F Pulse Rate 80 79 86 Respiratory Rate 20 18 18 Blood Pressure 164/89 H 155/82 H 143/86 H Pulse Oximetry 96 97 97 02/22/18 04:00 02/22/18 07:46 02/22/18 10:37 Temperature 98.1 F 98.2 F Pulse Rate 68 77 88 Respiratory Rate 18 19 22 Blood Pressure 156/85 H 136/67 196/97 H Pulse Oximetry 95 96 02/22/18 12:00 Temperature 97.9 F Pulse Rate 69 Respiratory Rate 20 Blood Pressure 153/79 H Pulse Oximetry 98 Intake & Output 02/21/18 02/22/18 02/22/18 18:59 06:59 18:59 Intake Total 1400 / 1400 1200 / 1200 Balance 1400 / 1400 1200 / 1200 Weight 71.2 kg 69.8 kg Intake: IV 1400 / 1400 1200 / 1200 NS Inj 1,000 ML @ 100 mls/hr IV 800 / 800 1000 / 1000 .CONT .Q10H JOSE G Rx#:[id number] Cipro 400 MG/200 ML Inj 400 mg 400 / 400 In 200 ml @ 200 mls/hr IV.SIG Q12H JOSE G Rx#:[id number] Flagyl 500 MG Inj 100 ML @ 100 200 / 200 200 / 200 mls/hr IV.SIG Q6H JOSE G Rx#: [id number] Other: # Voids 1 5 Date of Last Bowel Movement 02/22/18 02/22/18 # Bowel Movements 4 6 Weight On Admission 71.2 kg Narrative: GENERAL: NAD, A&Ox3 HEAD: Normocephalic. NECK: Supple, trachea midline. No lymphadenopathy. EYES: No scleral icterus. No injection or drainage. CARDIOVASCULAR: Regular rate and rhythm without murmurs, gallops, or rubs. RESPIRATORY: Breath sounds equal bilaterally. No accessory muscle use. GASTROINTESTINAL: Abdomen soft, non-tender, nondistended. MUSCULOSKELETAL: No cyanosis, or edema. SKIN: Warm and dry. NEURO: No focal neurological deficits. Results - Labs CBC & Chem 7: 02/22/18 07:00 02/22/18 07:00 Laboratory Results - last 24 hr 02/21/18 02/22/18 02/22/18 17:48 07:00 07:00 WBC 5.5 RBC 3.51 L Hgb 11.8 D Hct 35.9 MCV 102.5 H MCH 33.5 MCHC 32.7 RDW 20.1 H Plt Count 196 D MPV 8.4 Neut % (Auto) 58.2 Lymph % (Auto) 24.6 [place] % (Auto) 12.8 H Eos % (Auto) 2.7 Baso % (Auto) 1.7 Neut # (Auto) 3.2 Lymph # (Auto) 1.3 [place] # (Auto) 0.7 Eos # (Auto) 0.1 Baso # (Auto) 0.1 WBC Differential . Differential Comment Auto diff final Sodium 140 Potassium 3.4 L Chloride 105 Carbon Dioxide 24.1 Anion Gap 11 BUN 4 L Creatinine 0.54 Estimated GFR Greater than 89 POC Glucose Random Glucose 95 Calcium 8.8 Total Bilirubin 0.4 AST 47 H ALT 33 Alkaline Phosphatase 86 Total Protein 6.3 L D Albumin 2.9 L D Stool C.difficile Ag Positive H Stool C.difficile Toxin Negative Stl C.difficile DNA Amp Positive H St C. diff Tox Epid 027 Negative 02/22/18 08:20 WBC RBC Hgb Hct MCV MCH MCHC RDW Plt Count MPV Neut % (Auto) Lymph % (Auto) [place] % (Auto) Eos % (Auto) Baso % (Auto) Neut # (Auto) Lymph # (Auto) [place] # (Auto) Eos # (Auto) Baso # (Auto) WBC Differential Differential Comment Sodium Potassium Chloride Carbon Dioxide Anion Gap BUN Creatinine Estimated GFR POC Glucose 87 Random Glucose Calcium Total Bilirubin AST ALT Alkaline Phosphatase Total Protein Albumin Stool C.difficile Ag Stool C.difficile Toxin Stl C.difficile DNA Amp St C. diff Tox Epid 027 Microbiology 02/21/18 17:48 Stool Enteric Pathogens (PCR) - Final No enteric pathogens detected by PCR (No Salmonella sp., Shigella sp., Campylobacter sp., Yersinia enterocolitica, Vibrio sp., Norovirus, or EHEC (Shiga Toxin 1 or Shiga Toxin 2) detected. 02/21/18 17:48 Stool Stool for WBCs - Final No WBC's seen Assessment and Plan - Plan 57-year-old female admitted secondary to acute colitis with abdominal pain. Bacterial colitis Abdominal Pain Possible C. difficile Antigen and DNA are positive and toxin negative Continue Flagyl Continue ciprofloxacin Continue IV fluids Continue pain control Continue IV antiemetics History of chronic pancreatitis Follow clinically DVT prophylaxis SCDs
--- NOTE | 2018-02-22 17:03 | MR ---
EXAM DATE: 02/22/2018 4:56 PM EST AGE/SEX: 57 years / Female INDICATIONS: Abdominal pain. CLINICAL DATA: This is the patient's initial encounter. Patient reports that signs and symptoms have been present for 2 days and indicates a pain score of 4/10. MEDICAL/SURGICAL HISTORY: None. Cholecystectomy. Tubal ligation. Left wrist. COMPARISON: [facility] [place] & [place]EL[place] W/O CONTRAST, 02/21/2018. . TECHNIQUE: Multiplanar, multisequence images of the abdomen were obtained without contrast including dedicated cholangiographic images. FINDINGS: Liver: Significant altered signal intensity seen throughout the liver with marked loss of signal int ensity on opposed phased imaging. There are no discrete space-occupying lesions. Intrahepatic Bile Ducts: There is no intrahepatic biliary ductal dilatation. Common Bile Duct: The common bile duct is normal in caliber measuring 7 mm. No filling defects or ob structing lesions are identified. Gallbladder: Status post cholecystectomy. Pancreas: The pancreas appears normal in signal with no focal parenchymal abnormalities. The pancrea tic duct is normal in caliber with no filling defects, or obstructing lesions identified. CONCLUSION: 1. Advanced steatosis. 2. Status post cholecystectomy. 3. No evidence of biliary obstructive disease or common bile duct stones. Electronically signed by: Anthony Oneal MD 02/22/2018 5:02 PM EST
[2018-02-22] MEDS: Sodium Chloride 0.9% 2 ML Flush BID IV.FLUSH SCH ×2 (17:48→23:47)
[2018-02-22] MEDS ORDERED: LORazepam 0.5 MG Tablet PO ONE (23:27)
[2018-02-23] MEDS: HYDROmorphone PF Inj 1 MG/ML Ampul IV.PUSH PRN ×5 (03:44→21:09)
[2018-02-23] MEDS: Ciprofloxacin 400 MG/200 ML 400 MG/200 ML PIGGYBACK IV.SIG SCH (03:46)
[2018-02-23] MEDS: oxyCODONE/Acetaminophen 10/325 Tablet PO PRN ×2 (04:58→10:59)
[2018-02-23 06:56] LABS: Baso % (Auto) 0.3 % (0.0-2.0); Eos # (Auto) 0.3 th/mm3 (0.0-0.4); Eos % (Auto) 6.9 % (0.0-4.0); Hematocrit 33.4 % (35.0-46.0); Hemoglobin 11.2 gm/dL (11.6-15.3); Lymph # (Auto) 1.1 th/mm3 (1.0-4.8); Lymph % (Auto) 29.3 % (9.0-44.0); Mean Corpuscular HGB Conc 33.4 % (32.0-36.0); Mean Corpuscular Hemoglobin 33.9 pg (27.0-34.0); Mean Corpuscular Volume 101.6 fL (80.0-100.0); Mean Platelet Volume 8.6 fL (7.0-11.0); Mono # (Auto) 0.5 th/mm3 (0.0-0.9); Mono % (Auto) 14.3 % (0.0-8.0); Neut # (Auto) 1.8 th/mm3 (1.8-7.7); Neut % (Auto) 49.2 % (16.0-70.0); Platelet Count 178 th/mm3 (150-450); Red Blood Count 3.29 mil/mm3 (4.00-5.30); Red Cell Distribution Width 19.7 % (11.6-17.2); White Blood Count 3.7 th/mm3 (4.0-11.0)
[2018-02-23 07:12] LABS: Albumin 2.8 g/dL (3.4-5.0); Anion Gap 9 meq/L (5-15); Aspartate Aminotransferase 34 U/L (15-37); Blood Urea Nitrogen 3 mg/dL (7-18); Calcium 8.5 mg/dL (8.5-10.1); Carbon Dioxide 26.1 meq/L (21.0-32.0); Chloride 106 meq/L (98-107); Glomerular Filtration Rate Greater Than 89 mL/min (>89); Glucose,Random 93 mg/dL (74-106); Potassium 3.5 meq/L (3.5-5.1); Sodium 141 meq/L (136-145)
[2018-02-23 07:13] LABS: Alanine Aminotransferase 28 U/L (10-53)
[2018-02-23 07:15] LABS: Alkaline Phosphatase 79 U/L (45-117); Total Protein 6.1 g/dL (6.4-8.2)
[2018-02-23] MEDS: Pantoprazole Inj 40 MG Vial IV.PUSH SCH (08:23)
[2018-02-23] MEDS: Sodium Chloride 0.9% 2 ML Flush BID IV.FLUSH SCH ×3 (08:24→21:10)
[2018-02-23] MEDS: LORazepam 0.5 MG Tablet PO PRN ×2 (15:13→23:05)
[2018-02-23] MEDS: Sod Chloride 0.9% Inj 1,000 ML IV.CONT SCH ×2 (15:15→19:37)
--- NOTE | 2018-02-23 15:42 | P.PNGI ---
Subjective Interval history: Patient sitting up at bedside Post colonoscopy Denies nausea and vomiting Patient continues to have diarrhea and abdominal pain <Daphne Mallory - Last Filed: 02/23/18 15:33> Physical Exam Vital signs: Vital Signs 02/22/18 16:00 02/22/18 20:00 02/23/18 00:00 Temperature 97.9 F 97.6 F 98.3 F Pulse Rate 84 87 90 Respiratory Rate 20 20 20 Blood Pressure 183/86 H 127/71 152/78 H Pulse Oximetry 96 97 95 02/23/18 04:00 02/23/18 08:30 02/23/18 12:00 Temperature 98 F 98.3 F 97.9 F Pulse Rate 80 81 83 Respiratory Rate 20 18 18 Blood Pressure 151/88 H 127/87 130/81 Pulse Oximetry 80 L 96 02/23/18 12:06 02/23/18 13:23 Temperature Pulse Rate Respiratory Rate 18 18 Blood Pressure Pulse Oximetry Intake & Output 02/22/18 02/23/18 02/23/18 18:59 06:59 18:59 Intake Total 1250 / 1250 800 / 800 1100 / 1100 Balance 1250 / 1250 800 / 800 1100 / 1100 Weight 72.8 kg Intake: IV 1000 / 1000 800 / 800 1100 / 1100 NS Inj 1,000 ML @ 100 mls/hr IV 700 / 700 300 / 300 1000 / 1000 .CONT .Q10H JOSE G Rx#:[id number] Cipro 400 MG/200 ML Inj 400 mg 200 / 200 200 / 200 In 200 ml @ 200 mls/hr IV.SIG Q12H JOSE G Rx#:[id number] Flagyl 500 MG Inj 100 ML @ 100 100 / 100 300 / 300 100 / 100 mls/hr IV.SIG Q6H JOSE G Rx#: [id number] Anesthesia Amount 250 / 250 Other: # Voids 3 Date of Last Bowel Movement 02/22/18 02/23/18 # Bowel Movements 1 - Constitutional mild distress - Routine HEENT Exam Head: Present: normocephalic - Routine Respiratory Exam Present: CTA bilaterally. Absent: accessory muscle use - Routine Cardiovascular Exam Present: RRR - Routine Abdominal Exam Present: soft, normoactive bowel sounds, tenderness. Absent: distended, guarding, firm - Routine Extremities Exam Absent: edema - Routine Skin Exam Present: dry, warm - Routine Neurological Exam Present: alert - Routine Psychiatric Exam Present: normal affect, cooperative <Dorie Malloryy - Last Filed: 02/23/18 15:33> Vital signs: Vital Signs 02/23/18 00:00 02/23/18 04:00 02/23/18 08:30 Temperature 98.3 F 98 F 98.3 F Pulse Rate 90 80 81 Respiratory Rate 20 20 18 Blood Pressure 152/78 H 151/88 H 127/87 Pulse Oximetry 95 80 L 02/23/18 12:00 02/23/18 12:06 02/23/18 13:23 Temperature 97.9 F Pulse Rate 83 Respiratory Rate 18 18 18 Blood Pressure 130/81 Pulse Oximetry 96 02/23/18 16:00 02/23/18 16:38 02/23/18 21:06 Temperature 98.4 F Pulse Rate 68 Respiratory Rate 18 18 18 Blood Pressure 166/79 H Pulse Oximetry 98 Intake & Output 02/23/18 02/23/18 02/24/18 06:59 18:59 06:59 Intake Total 800 / 800 1100 / 1100 1000 / 1000 Balance 800 / 800 1100 / 1100 1000 / 1000 Weight 72.8 kg Intake: IV 800 / 800 1100 / 1100 1000 / 1000 NS Inj 1,000 ML @ 100 mls/hr IV 300 / 300 1000 / 1000 1000 / 1000 .CONT .Q10H JOSE G Rx#:[id number] Cipro 400 MG/200 ML Inj 400 mg 200 / 200 In 200 ml @ 200 mls/hr IV.SIG Q12H JOSE G Rx#:[id number] Flagyl 500 MG Inj 100 ML @ 100 300 / 300 100 / 100 mls/hr IV.SIG Q6H JOSE G Rx#: [id number] Other: # Voids 3 Date of Last Bowel Movement 02/23/18 02/23/18 # Bowel Movements 1 <Dot Fenton - Last Filed: 02/23/18 21:41> Results - Labs CBC & Chem 7: 02/23/18 06:10 02/23/18 06:10 Laboratory Results - last 24 hr 02/23/18 02/23/18 06:10 06:10 WBC 3.7 L RBC 3.29 L Hgb 11.2 L Hct 33.4 L MCV 101.6 H MCH 33.9 MCHC 33.4 RDW 19.7 H Plt Count 178 MPV 8.6 Neut % (Auto) 49.2 Lymph % (Auto) 29.3 [place] % (Auto) 14.3 H Eos % (Auto) 6.9 H Baso % (Auto) 0.3 Neut # (Auto) 1.8 Lymph # (Auto) 1.1 [place] # (Auto) 0.5 Eos # (Auto) 0.3 Baso # (Auto) 0.0 WBC Differential . Differential Comment Auto diff final Sodium 141 Potassium 3.5 Chloride 106 Carbon Dioxide 26.1 Anion Gap 9 BUN 3 L Creatinine 0.53 Estimated GFR Greater than 89 Random Glucose 93 Calcium 8.5 Total Bilirubin 0.4 AST 34 ALT 28 Alkaline Phosphatase 79 Total Protein 6.1 L Albumin 2.8 L Microbiology 02/21/18 17:48 Stool Enteric Pathogens (PCR) - Final No enteric pathogens detected by PCR (No Salmonella sp., Shigella sp., Campylobacter sp., Yersinia enterocolitica, Vibrio sp., Norovirus, or EHEC (Shiga Toxin 1 or Shiga Toxin 2) detected. - Imaging Impressions Cholangiopancreatography MRI 02/22/18 00:00 CONCLUSION: 1. Advanced steatosis. 2. Status post cholecystectomy. 3. No evidence of biliary obstructive disease or common bile duct stones. <Daphne Mallory - Last Filed: 02/23/18 15:33> - Labs CBC & Chem 7: 02/23/18 06:10 02/23/18 06:10 Laboratory Results - last 24 hr 02/23/18 02/23/18 06:10 06:10 WBC 3.7 L RBC 3.29 L Hgb 11.2 L Hct 33.4 L MCV 101.6 H MCH 33.9 MCHC 33.4 RDW 19.7 H Plt Count 178 MPV 8.6 Neut % (Auto) 49.2 Lymph % (Auto) 29.3 [place] % (Auto) 14.3 H Eos % (Auto) 6.9 H Baso % (Auto) 0.3 Neut # (Auto) 1.8 Lymph # (Auto) 1.1 [place] # (Auto) 0.5 Eos # (Auto) 0.3 Baso # (Auto) 0.0 WBC Differential . Differential Comment Auto diff final Sodium 141 Potassium 3.5 Chloride 106 Carbon Dioxide 26.1 Anion Gap 9 BUN 3 L Creatinine 0.53 Estimated GFR Greater than 89 Random Glucose 93 Calcium 8.5 Total Bilirubin 0.4 AST 34 ALT 28 Alkaline Phosphatase 79 Total Protein 6.1 L Albumin 2.8 L <Dot Fenton - Last Filed: 02/23/18 21:41> Assessment and Plan (1) Rectal bleeding Status: Acute Code(s): K62.5 - Hemorrhage of anus and rectum (2) Colitis Status: Acute Code(s): K52.9 - Noninfective gastroenteritis and colitis, unspecified - Plan This patient is a 57-year-old female with history of chronic pancreatitis. Patient also has a history of anxiety, chronic pain, insomnia and surgical history of cholecystectomy. She presented to the emergency room on 02/21/2018 with complaint of abdominal pain. On consultation, patient states she began to have sharp burning type abdominal pain right upper quadrant. States this pain radiated around to her back and was accompanied by chills. Patient states that she has had bright red blood in her stool for 5 days. Reports that it started after 2-3 days of being constipated. Constipation was relieved by over-the- counter stool softeners-Colace. Last colonoscopy per patient recollection was 1 year ago. She states she underwent removal of benign polyps all of which were benign. Of note, patient routinely takes oxycodone 15 mg every 4 hours and utilizes fentanyl 25 mcg patch for chronic pain. Patient reports occasional symptoms of acid reflux for which she states Protonix daily is effective. Denies any difficulty or pain with swallowing. Patient denies any known family history of gastrointestinal disorders. Denies any use of tobacco or alcohol products. Our service has been consulted to evaluate patient for rectal bleeding/colitis Rectal bleeding/colitis 02/21/2018 CT abdomen and pelvis revealed the following findings: Proximal predominant colitis WBC 9.6 hemoglobin 15.2 hematocrit 45.1 total bilirubin 0.7 AST 48 ALT 41 alk phos 121 lipase 133 02/23/2018 Colitis 02/22/2018 colonoscopy revealed the following findings: 1. Diminutive polyp descending-biopsy random biopsy from ascending and descending 2. Retroflexed views revealed internal hemorrhoids 3. Retroflexed views revealed small internal hemorrhoids 4. Revealed hemorrhoids WBC 3.7 hemoglobin 11.2 hematocrit 33.4. Patient denies any noted bleeding. 02/22/2018 MRCP revealed the following findings: 1. Advanced steatosis. 2. Status post cholecystectomy. 3. No evidence of biliary obstructive disease or common bile duct stones. Total bilirubin 0.4 AST 34 ALT 28 alk phos 79 all within normal range. Stool C. difficile antigen positive DNA positive. Toxin in epic negative Plan -Regular diet -Questran -Lactinex -Analgesic and antiemetic as per attending -Continue PPI -Vancomycin p.o. -IV hydration -Monitor output -Supportive care -Further recommendations to follow This patient has been seen by myself and Dr. Fenton and this note is written on her behalf - Attending Attestation Dr. Fenton <Daphne Mallory - Last Filed: 02/23/18 15:33> (1) Rectal bleeding Status: Acute Code(s): K62.5 - Hemorrhage of anus and rectum (2) Colitis Status: Acute Code(s): K52.9 - Noninfective gastroenteritis and colitis, unspecified - Attending Attestation seen, examined agree with above <Dot Fenton - Last Filed: 02/23/18 21:41>
[2018-02-23] MEDS: Lactobacillus Acidophilus/L. Spores Tablet PO SCH (17:16)
[2018-02-23] MEDS ORDERED: Vancomycin 25 MG/ML Oral Liq 100 mL Bottle PO SCH (18:00)
[2018-02-24] MEDS: HYDROmorphone PF Inj 1 MG/ML Ampul IV.PUSH PRN ×5 (01:31→22:34)
[2018-02-24] MEDS: Sod Chloride 0.9% Inj 1,000 ML IV.CONT SCH (03:49)
[2018-02-24] MEDS: Pantoprazole Inj 40 MG Vial IV.PUSH SCH (09:49)
[2018-02-24] MEDS: Lactobacillus Acidophilus/L. Spores Tablet PO SCH ×3 (09:50→20:13)
[2018-02-24] MEDS: Sodium Chloride 0.9% 2 ML Flush BID IV.FLUSH SCH ×2 (09:55→20:28)
--- NOTE | 2018-02-24 10:43 | P.PNIM ---
Subjective Interval history: Patient showing signs of improvement in regards to diarrhea. However, her abdominal pain is not improved. We discussed possibilities of ischemic colitis. She is not high risk for gastroparesis and symptoms do not correlate with that. Physical Exam Vital signs: Vital Signs 02/23/18 12:00 02/23/18 12:06 02/23/18 13:23 Temperature 97.9 F Pulse Rate 83 Respiratory Rate 18 18 18 Blood Pressure 130/81 Pulse Oximetry 96 02/23/18 16:00 02/23/18 16:38 02/23/18 20:00 Temperature 98.4 F 98.3 F Pulse Rate 68 102 H Respiratory Rate 18 18 18 Blood Pressure 166/79 H 212/103 H Pulse Oximetry 98 92 L 02/23/18 21:06 02/23/18 22:57 02/24/18 00:00 Temperature 98.2 F Pulse Rate 81 Respiratory Rate 18 18 18 Blood Pressure 157/90 H Pulse Oximetry 95 02/24/18 01:26 02/24/18 02:05 02/24/18 04:00 Temperature 98.1 F Pulse Rate 78 Respiratory Rate 18 18 18 Blood Pressure 153/78 H Pulse Oximetry 94 L 02/24/18 08:00 Temperature 97.9 F Pulse Rate 80 Respiratory Rate 20 Blood Pressure 187/98 H Pulse Oximetry 97 Intake & Output 02/23/18 02/24/18 02/24/18 18:59 06:59 18:59 Intake Total 1100 / 1100 2663 / 2663 Balance 1100 / 1100 2663 / 2663 Weight 72.8 kg 72.8 kg Intake: IV 1100 / 1100 1999 / 1999 NS Inj 1,000 ML @ 100 mls/hr IV 1000 / 1000 1999 .CONT .Q10H JOSE G Rx#:[id number] Flagyl 500 MG Inj 100 ML @ 100 100 / 100 mls/hr IV.SIG Q6H JOSE G Rx#: [id number] Oral 663 / 663 Other: # Voids 1 3 Date of Last Bowel Movement 02/23/18 Narrative: GENERAL: NAD, A&Ox3 HEAD: Normocephalic. NECK: Supple, trachea midline. No lymphadenopathy. EYES: No scleral icterus. No injection or drainage. CARDIOVASCULAR: Regular rate and rhythm without murmurs, gallops, or rubs. RESPIRATORY: Breath sounds equal bilaterally. No accessory muscle use. GASTROINTESTINAL: Abdomen soft, non-tender, nondistended. MUSCULOSKELETAL: No cyanosis, or edema. SKIN: Warm and dry. NEURO: No focal neurological deficits. Results - Labs CBC & Chem 7: 02/23/18 06:10 02/23/18 06:10 Assessment and Plan - Plan 57-year-old female admitted secondary to acute colitis with abdominal pain. Abdominal pain not improving despite clinical improvement and signs of infection. Obtain CTA of abdomen/pelvis for evaluation of ischemic colitis. Bacterial colitis Abdominal Pain Possible C. difficile Antigen and DNA are positive and toxin negative Continue Flagyl Continue ciprofloxacin Continue IV fluids Continue pain control Continue IV antiemetics History of chronic pancreatitis Follow clinically DVT prophylaxis SCDs
[2018-02-24] MEDS: LORazepam 0.5 MG Tablet PO PRN ×2 (11:25→22:34)
--- NOTE | 2018-02-24 13:05 | CT ---
EXAM DATE: 02/24/2018 12:42 PM EST AGE/SEX: 57 years / Female INDICATIONS: Right sided abdominal pain, rectal bleeding. CLINICAL DATA: This is the patient's initial encounter. Patient reports that signs and symptoms have been present for 1 day and indicates a pain score of 5/10. MEDICAL/SURGICAL HISTORY: Pancreatitis. Colitis, neoplasm of pancreas. Cholecystectomy. RADIATION DOSE: 7.37 CTDI (mGy) COMPARISON: [facility] – [place], CT ABDOMEN & PELVIS W/O CONTRAST, 02/21/2018. . TECHNIQUE: Volumetric scanning was performed using a multi-row detector CT scanner during bolus infu iraj of 100 ml Omnipaque 350 (iohexol) nonionic water-soluble contrast as a single exam dose. The data was post processed with a variety of visualization algorithms including full volume maximum inte nsity projection, multi-planar sliding thin slab reformation, curved planar reformation, and surface rendering techniques. Using automated exposure control and adjustment of the mA and/or kV according to patient size, radiation dose was kept as low as reasonably achievable to obtain optimal diagnostic quality images. DICOM format image data is available electronically for review and comparison. FINDINGS: Abdominal Aorta: Moderate calcified plaque is present throughout the abdominal aorta. Aortic branche s are widely patent without significant stenosis. There is no evidence of vasculopathy or aneurysm. There is no gross extravasation of contrast into the GI tract. Bifurcation: Normal. Right Pelvis: The right common iliac, internal iliac, and external iliac vessels are patent without luminal irregularity. Left Pelvis: The left common iliac, internal iliac, and external iliac vessels are patent and withou t luminal irregularity. Miscellaneous: The liver is diffusely hypodense. There are no space-occupying lesions. The spleen, pa ncreas, adrenal glands and kidneys are unremarkable. Soft tissues appear normal. CONCLUSION: 1. Calcific atherosclerotic vascular disease without evidence of aneurysm, stenosis or gross GI blee d. 2. Hepatic steatosis. Electronically signed by: Anthony Oneal MD 02/24/2018 1:04 PM EST
--- NOTE | 2018-02-24 13:39 | P.PNGI ---
Subjective Interval history: Patient sitting up in bed eating lunch meal Denies nausea vomiting Reports continued bouts of loose stool and lower abdominal pain Post CTA abdomen <MalloryDaphne - Last Filed: 02/24/18 16:29> Physical Exam Vital signs: Vital Signs 02/23/18 16:00 02/23/18 16:38 02/23/18 20:00 Temperature 98.4 F 98.3 F Pulse Rate 68 102 H Respiratory Rate 18 18 18 Blood Pressure 166/79 H 212/103 H Pulse Oximetry 98 92 L 02/23/18 21:06 02/23/18 22:57 02/24/18 00:00 Temperature 98.2 F Pulse Rate 81 Respiratory Rate 18 18 18 Blood Pressure 157/90 H Pulse Oximetry 95 02/24/18 01:26 02/24/18 02:05 02/24/18 04:00 Temperature 98.1 F Pulse Rate 78 Respiratory Rate 18 18 18 Blood Pressure 153/78 H Pulse Oximetry 94 L 02/24/18 08:00 02/24/18 12:00 Temperature 97.9 F 97.9 F Pulse Rate 80 83 Respiratory Rate 20 18 Blood Pressure 187/98 H 171/77 H Pulse Oximetry 97 96 Intake & Output 02/23/18 02/24/18 02/24/18 18:59 06:59 18:59 Intake Total 1100 / 1100 2663 / 2663 Balance 1100 / 1100 2663 / 2663 Weight 72.8 kg 72.8 kg Intake: IV 1100 / 1100 1999 / 1999 NS Inj 1,000 ML @ 100 mls/hr IV 1000 / 1000 1999 / 2000 .CONT .Q10H [facility] Rx#:[id number] Flagyl 500 MG Inj 100 ML @ 100 100 / 100 mls/hr IV.SIG Q6H [facility] Rx#: [id number] Oral 663 / 663 Other: # Voids 1 3 Date of Last Bowel Movement 02/23/18 02/23/18 - Constitutional no acute distress - Routine HEENT Exam Head: Present: normocephalic - Routine Respiratory Exam Present: CTA bilaterally. Absent: accessory muscle use - Routine Cardiovascular Exam Present: RRR - Routine Abdominal Exam Present: soft, normoactive bowel sounds. Absent: tenderness, distended, guarding, firm - Routine Extremities Exam Absent: edema - Routine Skin Exam Present: dry, warm - Routine Neurological Exam Present: alert, oriented X3 - Routine Psychiatric Exam Present: normal affect, cooperative <Daphne Mallory - Last Filed: 02/24/18 16:29> Vital signs: Vital Signs 02/23/18 16:38 02/23/18 20:00 02/23/18 21:06 Temperature 98.3 F Pulse Rate 102 H Respiratory Rate 18 18 18 Blood Pressure 212/103 H Pulse Oximetry 92 L 02/23/18 22:57 02/24/18 00:00 02/24/18 01:26 Temperature 98.2 F Pulse Rate 81 Respiratory Rate 18 18 18 Blood Pressure 157/90 H Pulse Oximetry 95 02/24/18 02:05 02/24/18 04:00 02/24/18 08:00 Temperature 98.1 F 97.9 F Pulse Rate 78 80 Respiratory Rate 18 18 20 Blood Pressure 153/78 H 187/98 H Pulse Oximetry 94 L 97 02/24/18 12:00 Temperature 97.9 F Pulse Rate 83 Respiratory Rate 18 Blood Pressure 171/77 H Pulse Oximetry 96 Intake & Output 02/23/18 02/24/18 02/24/18 18:59 06:59 18:59 Intake Total 1100 / 1100 2663 / 2663 Balance 1100 / 1100 2663 / 2663 Weight 72.8 kg 72.8 kg Intake: IV 1100 / 1100 1999 / 1999 NS Inj 1,000 ML @ 100 mls/hr IV 1000 / 1000 1999 / 1999 .CONT .Q10H [facility] Rx#:[id number] Flagyl 500 MG Inj 100 ML @ 100 100 / 100 mls/hr IV.SIG Q6H [facility] Rx#: [id number] Oral 663 / 663 Other: # Voids 1 3 Date of Last Bowel Movement 02/23/18 02/23/18 <Dot Fenton - Last Filed: 02/24/18 16:33> Results - Labs CBC & Chem 7: 02/23/18 06:10 02/23/18 06:10 - Imaging Impressions Abdomen/Pelvis CTA 02/24/18 00:00 CONCLUSION: 1. Calcific atherosclerotic vascular disease without evidence of aneurysm, stenosis or gross GI bleed. 2. Hepatic steatosis. <Daphne Mallory - Last Filed: 02/24/18 16:29> - Labs CBC & Chem 7: 02/23/18 06:10 02/23/18 06:10 - Imaging Impressions Abdomen/Pelvis CTA 02/24/18 00:00 CONCLUSION: 1. Calcific atherosclerotic vascular disease without evidence of aneurysm, stenosis or gross GI bleed. 2. Hepatic steatosis. <Dot Fenton - Last Filed: 02/24/18 16:33> Assessment and Plan (1) Rectal bleeding Status: Acute Code(s): K62.5 - Hemorrhage of anus and rectum (2) Colitis Status: Acute Code(s): K52.9 - Noninfective gastroenteritis and colitis, unspecified - Plan This patient is a 57-year-old female with history of chronic pancreatitis. Patient also has a history of anxiety, chronic pain, insomnia and surgical history of cholecystectomy. She presented to the emergency room on 02/21/2018 with complaint of abdominal pain. On consultation, patient states she began to have sharp burning type abdominal pain right upper quadrant. States this pain radiated around to her back and was accompanied by chills. Patient states that she has had bright red blood in her stool for 5 days. Reports that it started after 2-3 days of being constipated. Constipation was relieved by over-the- counter stool softeners-Colace. Last colonoscopy per patient recollection was 1 year ago. She states she underwent removal of benign polyps all of which were benign. Of note, patient routinely takes oxycodone 15 mg every 4 hours and utilizes fentanyl 25 mcg patch for chronic pain. Patient reports occasional symptoms of acid reflux for which she states Protonix daily is effective. Denies any difficulty or pain with swallowing. Patient denies any known family history of gastrointestinal disorders. Denies any use of tobacco or alcohol products. Our service has been consulted to evaluate patient for rectal bleeding/colitis Rectal bleeding/colitis 02/21/2018 CT abdomen and pelvis revealed the following findings: Proximal predominant colitis WBC 9.6 hemoglobin 15.2 hematocrit 45.1 total bilirubin 0.7 AST 48 ALT 41 alk phos 121 lipase 133 02/23/2018 Colitis 02/22/2018 colonoscopy revealed the following findings: 1. Diminutive polyp descending-biopsy random biopsy from ascending and descending 2. Retroflexed views revealed internal hemorrhoids 3. Retroflexed views revealed small internal hemorrhoids 4. Revealed hemorrhoids WBC 3.7 hemoglobin 11.2 hematocrit 33.4. Patient denies any noted bleeding. 02/22/2018 MRCP revealed the following findings: 1. Advanced steatosis. 2. Status post cholecystectomy. 3. No evidence of biliary obstructive disease or common bile duct stones. Total bilirubin 0.4 AST 34 ALT 28 alk phos 79 all within normal range. Stool C. difficile antigen positive DNA positive. Toxin in epic negative 02/24/2018 Colitis Patient denies any noted bleeding, reports 3 bouts of loose stool. States continued generalized abdominal pain and cramping 02/24/2018 CTA abdomen and pelvis revealed the following findings: 1. Calcific atherosclerotic vascular disease without evidence of aneurysm, stenosis or gross GI bleed. 2. Hepatic steatosis. Plan -Regular diet -Questran/Lactinex -Analgesic and antiemetic as per attending -Continue PPI -Vancomycin p.o. -IV hydration -Monitor output -Supportive care -Further recommendations to follow This patient has been seen by myself and Dr. Fenton and this note is written on her behalf - Attending Attestation Dr. Fenton <Daphne Mallory - Last Filed: 02/24/18 16:29> (1) Rectal bleeding Status: Acute Code(s): K62.5 - Hemorrhage of anus and rectum (2) Colitis Status: Acute Code(s): K52.9 - Noninfective gastroenteritis and colitis, unspecified - Attending Attestation seen, examined agree with above cta noted c diff positive on vancomycin biopsy suggesting collagenous colitis-we will add Asacol elevated lfts improving -we will monitor <Dot Fenton - Last Filed: 02/24/18 16:33>
[2018-02-24] MEDS: Mesalamine 800 MG Tablet DR PO SCH (20:12)
[2018-02-25] MEDS: HYDROmorphone PF Inj 1 MG/ML Ampul IV.PUSH PRN (03:00)
[2018-02-25] MEDS: HYDROmorphone PF Inj 2 MG/ML Vial IV.PUSH PRN ×4 (06:39→22:45)
[2018-02-25] MEDS: LORazepam 0.5 MG Tablet PO PRN ×2 (06:39→20:37)
[2018-02-25] MEDS: Mesalamine 800 MG Tablet DR PO SCH ×3 (08:32→17:24)
[2018-02-25] MEDS: Lactobacillus Acidophilus/L. Spores Tablet PO SCH ×3 (08:32→17:24)
[2018-02-25] MEDS: Sodium Chloride 0.9% 2 ML Flush BID IV.FLUSH SCH ×2 (08:33→20:38)
[2018-02-25] MEDS: Pantoprazole Inj 40 MG Vial IV.PUSH SCH (08:34)
[2018-02-25 10:53] LABS: Baso % (Auto) 0.8 % (0.0-2.0); Eos # (Auto) 0.2 th/mm3 (0.0-0.4); Hematocrit 34.3 % (35.0-46.0); Hemoglobin 11.4 gm/dL (11.6-15.3); Lymph # (Auto) 0.9 th/mm3 (1.0-4.8); Lymph % (Auto) 21.4 % (9.0-44.0); Mean Corpuscular HGB Conc 33.2 % (32.0-36.0); Mean Corpuscular Hemoglobin 33.8 pg (27.0-34.0); Mean Corpuscular Volume 101.8 fL (80.0-100.0); Mean Platelet Volume 8.3 fL (7.0-11.0); Mono # (Auto) 0.6 th/mm3 (0.0-0.9); Mono % (Auto) 15.7 % (0.0-8.0); Neut # (Auto) 2.3 th/mm3 (1.8-7.7); Neut % (Auto) 57.1 % (16.0-70.0); Platelet Count 188 th/mm3 (150-450); Red Blood Count 3.37 mil/mm3 (4.00-5.30); Red Cell Distribution Width 19.4 % (11.6-17.2); White Blood Count 4.1 th/mm3 (4.0-11.0)
[2018-02-25 11:14] LABS: Albumin 2.8 g/dL (3.4-5.0); Anion Gap 10 meq/L (5-15); Aspartate Aminotransferase 32 U/L (15-37); Blood Urea Nitrogen 1 mg/dL (7-18); Calcium 8.9 mg/dL (8.5-10.1); Carbon Dioxide 28.4 meq/L (21.0-32.0); Chloride 103 meq/L (98-107); Glomerular Filtration Rate Greater Than 89 mL/min (>89); Glucose,Random 107 mg/dL (74-106); Potassium 3.4 meq/L (3.5-5.1); Sodium 141 meq/L (136-145)
[2018-02-25 11:15] LABS: Alanine Aminotransferase 25 U/L (10-53)
[2018-02-25 11:17] LABS: Alkaline Phosphatase 70 U/L (45-117); Total Protein 6.1 g/dL (6.4-8.2)
--- NOTE | 2018-02-25 11:20 | P.PNIM ---
Subjective Interval history: Negative workup for ischemic colitis. Patient says diarrhea has stopped. She still complains of abdominal pain. Asacol has been added. Physical Exam Vital signs: Vital Signs 02/24/18 12:00 02/24/18 16:00 02/24/18 20:00 Temperature 97.9 F 97.9 F 98.4 F Pulse Rate 83 75 70 Respiratory Rate 18 Blood Pressure 171/77 H 132/73 124/79 Pulse Oximetry 96 97 96 02/24/18 23:51 02/25/18 04:00 02/25/18 08:00 Temperature 98 F 98.1 F 98 F Pulse Rate 81 81 79 Respiratory Rate Blood Pressure 132/74 169/78 H 132/77 Pulse Oximetry 97 96 92 L 02/25/18 08:24 Temperature Pulse Rate Respiratory Rate 18 Blood Pressure Pulse Oximetry Intake & Output 02/24/18 02/25/18 02/25/18 18:59 06:59 18:59 Intake Total 2678 / 2678 Balance 2678 / 2678 Weight 72.8 kg 72.8 kg Intake: IV 1000 / 1000 NS Inj 1,000 ML @ 100 mls/hr IV 1000 / 1000 .CONT .Q10H [facility] Rx#:[id number] Oral 1428 / 1428 Anesthesia Amount 250 / 250 Other: # Voids 7 3 Date of Last Bowel Movement 02/23/18 02/24/18 # Bowel Movements 6 Narrative: GENERAL: NAD, A&Ox3 HEAD: Normocephalic. NECK: Supple, trachea midline. No lymphadenopathy. EYES: No scleral icterus. No injection or drainage. CARDIOVASCULAR: Regular rate and rhythm without murmurs, gallops, or rubs. RESPIRATORY: Breath sounds equal bilaterally. No accessory muscle use. GASTROINTESTINAL: Abdomen soft, non-tender, nondistended. MUSCULOSKELETAL: No cyanosis, or edema. SKIN: Warm and dry. NEURO: No focal neurological deficits. Results - Labs CBC & Chem 7: 02/25/18 10:27 02/25/18 10:27 Laboratory Results - last 24 hr 02/25/18 02/25/18 10:27 10:27 WBC 4.1 RBC 3.37 L Hgb 11.4 L Hct 34.3 L MCV 101.8 H MCH 33.8 MCHC 33.2 RDW 19.4 H Plt Count 188 MPV 8.3 Neut % (Auto) 57.1 Lymph % (Auto) 21.4 [place] % (Auto) 15.7 H Eos % (Auto) 5.0 H Baso % (Auto) 0.8 Neut # (Auto) 2.3 Lymph # (Auto) 0.9 L [place] # (Auto) 0.6 Eos # (Auto) 0.2 Baso # (Auto) 0.0 WBC Differential . Differential Comment Auto diff final Sodium 141 Potassium 3.4 L Chloride 103 Carbon Dioxide 28.4 Anion Gap 10 BUN 1 L Creatinine 0.53 Estimated GFR Greater than 89 Random Glucose 107 H Calcium 8.9 Total Bilirubin 0.4 AST 32 ALT 25 Alkaline Phosphatase 70 Total Protein 6.1 L Albumin 2.8 L - Imaging Impressions Abdomen/Pelvis CTA 02/24/18 00:00 CONCLUSION: 1. Calcific atherosclerotic vascular disease without evidence of aneurysm, stenosis or gross GI bleed. 2. Hepatic steatosis. Assessment and Plan - Plan 57-year-old female admitted secondary to acute colitis with abdominal pain. Asacol added. Monitor for improvement in abdominal pain. Negative workup for ischemic colitis. Bacterial colitis Abdominal Pain Possible C. difficile Antigen and DNA are positive and toxin negative Continue Flagyl Continue ciprofloxacin Continue IV fluids Continue pain control Continue IV antiemetics Negative abdominal CTA Asacol added as a treatment for abdominal pain/inflammation History of chronic pancreatitis Follow clinically DVT prophylaxis SCDs Discharge planning Discharge will be considered when abdominal pain starts to improve
--- NOTE | 2018-02-25 15:22 | P.PNGI ---
Subjective Interval history: Patient's resting in the bed has some guarding and pain right upper quadrant abdomen No nausea no vomiting able to eat small amounts of solid food Encouraged hydration and full liquids as long as abdomen pain uncontrolled BM x4 today small amounts <Sylvie Fonseca - Last Filed: 02/25/18 15:16> Physical Exam Vital signs: Vital Signs 02/24/18 16:00 02/24/18 20:00 02/24/18 23:51 Temperature 97.9 F 98.4 F 98 F Pulse Rate 75 70 81 Respiratory Rate 18 18 18 Blood Pressure 132/73 124/79 132/74 Pulse Oximetry 97 96 97 02/25/18 04:00 02/25/18 08:00 02/25/18 08:24 Temperature 98.1 F 98 F Pulse Rate 81 79 Respiratory Rate 18 18 18 Blood Pressure 169/78 H 132/77 Pulse Oximetry 96 92 L 02/25/18 12:00 Temperature 98.5 F Pulse Rate 75 Respiratory Rate 18 Blood Pressure 131/89 Pulse Oximetry 94 L Intake & Output 02/24/18 02/25/18 02/25/18 18:59 06:59 18:59 Intake Total 2678 / 2678 Balance 2678 / 2678 Weight 72.8 kg 72.8 kg Intake: IV 1000 / 1000 NS Inj 1,000 ML @ 100 mls/hr IV 1000 / 1000 .CONT .Q10H [facility] Rx#:[id number] Oral 1428 / 1428 Anesthesia Amount 250 / 250 Other: # Voids 7 3 Date of Last Bowel Movement 02/23/18 02/24/18 02/24/18 # Bowel Movements 6 - Constitutional moderate distress, cachectic, disheveled - Routine HEENT Exam Head: Present: normocephalic ENT: Present: mucous membranes moist - Routine Neck Exam Present: supple - Routine Respiratory Exam Present: CTA bilaterally - Routine Cardiovascular Exam Present: S1, S2 - Routine Abdominal Exam Present: tenderness (Generalized but worse in the right upper quadrant), distended (Mild), guarding (Positive) <Sylvie Fonseca - Last Filed: 02/25/18 15:16> Vital signs: Vital Signs 02/25/18 15:57 02/25/18 20:00 02/26/18 00:00 Temperature 98.5 F 98.2 F 98.1 F Pulse Rate 77 76 94 H Respiratory Rate 18 19 17 Blood Pressure 136/82 141/89 H 142/94 H Pulse Oximetry 94 L 96 96 02/26/18 01:23 02/26/18 04:00 02/26/18 07:58 Temperature 97.9 F 97.8 F Pulse Rate 97 H 105 H Respiratory Rate 6 L 19 20 Blood Pressure 122/83 141/78 H Pulse Oximetry 95 96 02/26/18 08:34 02/26/18 09:05 02/26/18 10:19 Temperature Pulse Rate Respiratory Rate 16 16 16 Blood Pressure Pulse Oximetry 02/26/18 11:39 Temperature 99.1 F Pulse Rate 79 Respiratory Rate 20 Blood Pressure 114/67 Pulse Oximetry 95 Intake & Output 02/25/18 02/26/18 02/26/18 18:59 06:59 18:59 Intake Total 958 / 958 240 / 240 Balance 958 / 958 240 / 240 Weight 72.7 kg Intake: Oral 708 / 708 240 / 240 Anesthesia Amount 250 / 250 Other: # Voids 3 4 2 Date of Last Bowel Movement 02/24/18 02/25/18 02/25/18 # Bowel Movements 1 3 1 <Maria Del Carmen Kelley - Last Filed: 02/26/18 12:41> Results - Labs CBC & Chem 7: 02/25/18 10:27 02/25/18 10:27 Laboratory Results - last 24 hr 02/25/18 02/25/18 10:27 10:27 WBC 4.1 RBC 3.37 L Hgb 11.4 L Hct 34.3 L MCV 101.8 H MCH 33.8 MCHC 33.2 RDW 19.4 H Plt Count 188 MPV 8.3 Neut % (Auto) 57.1 Lymph % (Auto) 21.4 [place] % (Auto) 15.7 H Eos % (Auto) 5.0 H Baso % (Auto) 0.8 Neut # (Auto) 2.3 Lymph # (Auto) 0.9 L [place] # (Auto) 0.6 Eos # (Auto) 0.2 Baso # (Auto) 0.0 WBC Differential . Differential Comment Auto diff final Sodium 141 Potassium 3.4 L Chloride 103 Carbon Dioxide 28.4 Anion Gap 10 BUN 1 L Creatinine 0.53 Estimated GFR Greater than 89 Random Glucose 107 H Calcium 8.9 Total Bilirubin 0.4 AST 32 ALT 25 Alkaline Phosphatase 70 Total Protein 6.1 L Albumin 2.8 L <RaymundoZabrinaSylvie M - Last Filed: 02/25/18 15:16> - Labs CBC & Chem 7: 02/25/18 10:27 02/25/18 10:27 <Maria Del Carmen Kelley - Last Filed: 02/26/18 12:41> Assessment and Plan (1) Rectal bleeding Status: Acute Code(s): K62.5 - Hemorrhage of anus and rectum (2) Colitis Status: Acute Code(s): K52.9 - Noninfective gastroenteritis and colitis, unspecified - Plan This patient is a 57-year-old female with history of chronic pancreatitis. Patient also has a history of anxiety, chronic pain, insomnia and surgical history of cholecystectomy. She presented to the emergency room on 02/21/2018 with complaint of abdominal pain. On consultation, patient states she began to have sharp burning type abdominal pain right upper quadrant. States this pain radiated around to her back and was accompanied by chills. Patient states that she has had bright red blood in her stool for 5 days. Reports that it started after 2-3 days of being constipated. Constipation was relieved by over-the- counter stool softeners-Colace. Last colonoscopy per patient recollection was 1 year ago. She states she underwent removal of benign polyps all of which were benign. Of note, patient routinely takes oxycodone 15 mg every 4 hours and utilizes fentanyl 25 mcg patch for chronic pain. Patient reports occasional symptoms of acid reflux for which she states Protonix daily is effective. Denies any difficulty or pain with swallowing. Patient denies any known family history of gastrointestinal disorders. Denies any use of tobacco or alcohol products. Our service has been consulted to evaluate patient for rectal bleeding/colitis Rectal bleeding/colitis 02/21/2018 CT abdomen and pelvis revealed the following findings: Proximal predominant colitis WBC 9.6 hemoglobin 15.2 hematocrit 45.1 total bilirubin 0.7 AST 48 ALT 41 alk phos 121 lipase 133 02/23/2018 Colitis 02/22/2018 colonoscopy revealed the following findings: 1. Diminutive polyp descending-biopsy random biopsy from ascending and descending 2. Retroflexed views revealed internal hemorrhoids 3. Retroflexed views revealed small internal hemorrhoids 4. Revealed hemorrhoids WBC 3.7 hemoglobin 11.2 hematocrit 33.4. Patient denies any noted bleeding. 02/22/2018 MRCP revealed the following findings: 1. Advanced steatosis. 2. Status post cholecystectomy. 3. No evidence of biliary obstructive disease or common bile duct stones. Total bilirubin 0.4 AST 34 ALT 28 alk phos 79 all within normal range. Stool C. difficile antigen positive DNA positive. Toxin in epic negative 02/24/2018 Colitis Patient denies any noted bleeding, reports 3 bouts of loose stool. States continued generalized abdominal pain and cramping 02/24/2018 CTA abdomen and pelvis revealed the following findings: 1. Calcific atherosclerotic vascular disease without evidence of aneurysm, stenosis or gross GI bleed. 2. Hepatic steatosis. 02/25/2018, continues with right upper quadrant guarding and abdominal distention. States her BMs x4 today and thin pencil shape Pain management appears to be ineffective for now, continues with C. difficile colitis treatment. Labs reviewed current hemoglobin 11.4, no obvious bleeding and WBC count normal 4.1, will continue to monitor C. difficile colitis symptoms and encourage patient to drink clear liquids as well as full liquids as long as she continues to have pain Plan Diet regular but encouraged full liquids for now PPI Vancomycin Bowel regimen Pain meds per attending Supportive care Will need follow-up care in the GI office once patient is stable Patient was seen per myself and Dr. Kelley, note was written on his behalf <Sylvie Fonseca - Last Filed: 02/25/18 15:16> (1) Rectal bleeding Status: Acute Code(s): K62.5 - Hemorrhage of anus and rectum (2) Colitis Status: Acute Code(s): K52.9 - Noninfective gastroenteritis and colitis, unspecified - Plan Seen and examined with [employer], diarrhea better but abdominal pain persistent. Discussed with Dr David. <Maria Del Carmen Kelley - Last Filed: 02/26/18 12:41>
[2018-02-26] MEDS: HYDROmorphone PF Inj 2 MG/ML Vial IV.PUSH PRN ×5 (03:00→21:36)
[2018-02-26] MEDS: LORazepam 0.5 MG Tablet PO PRN ×2 (05:52→22:49)
[2018-02-26] MEDS: Lactobacillus Acidophilus/L. Spores Tablet PO SCH ×3 (08:39→17:19)
[2018-02-26] MEDS: Pantoprazole Inj 40 MG Vial IV.PUSH SCH (08:39)
[2018-02-26] MEDS: Mesalamine 800 MG Tablet DR PO SCH ×3 (08:41→17:19)
[2018-02-26] MEDS: Sodium Chloride 0.9% 2 ML Flush BID IV.FLUSH SCH ×2 (08:42→21:38)
[2018-02-26] MEDS ORDERED: Naproxen 500 MG Tablet PO ONE (11:54)
--- NOTE | 2018-02-26 11:59 | P.PNIM ---
Subjective Interval history: Dermatomal rash has developed the patient's right side. She says that the pain that she was having in her abdomen and right side correlates with distribution of the rash. Shingles is a likely culprit. Physical Exam Vital signs: Vital Signs 02/25/18 12:00 02/25/18 15:57 02/25/18 20:00 Temperature 98.5 F 98.5 F 98.2 F Pulse Rate 75 77 76 Respiratory Rate 18 18 19 Blood Pressure 131/89 136/82 141/89 H Pulse Oximetry 94 L 94 L 96 02/26/18 00:00 02/26/18 01:23 02/26/18 04:00 Temperature 98.1 F 97.9 F Pulse Rate 94 H 97 H Respiratory Rate 17 6 L 19 Blood Pressure 142/94 H 122/83 Pulse Oximetry 96 95 02/26/18 07:58 02/26/18 08:34 02/26/18 09:05 Temperature 97.8 F Pulse Rate 105 H Respiratory Rate 20 16 16 Blood Pressure 141/78 H Pulse Oximetry 96 02/26/18 10:19 02/26/18 11:39 Temperature 99.1 F Pulse Rate 79 Respiratory Rate 16 20 Blood Pressure 114/67 Pulse Oximetry 95 Intake & Output 02/25/18 02/26/18 02/26/18 18:59 06:59 18:59 Intake Total 958 / 958 240 / 240 Balance 958 / 958 240 / 240 Weight 72.7 kg Intake: Oral 708 / 708 240 / 240 Anesthesia Amount 250 / 250 Other: # Voids 3 4 2 Date of Last Bowel Movement 02/24/18 02/25/18 02/25/18 # Bowel Movements 1 3 1 Narrative: GENERAL: NAD, A&Ox3 HEAD: Normocephalic. NECK: Supple, trachea midline. No lymphadenopathy. EYES: No scleral icterus. No injection or drainage. CARDIOVASCULAR: Regular rate and rhythm without murmurs, gallops, or rubs. RESPIRATORY: Breath sounds equal bilaterally. No accessory muscle use. GASTROINTESTINAL: Abdomen soft, non-tender, nondistended. MUSCULOSKELETAL: No cyanosis, or edema. SKIN: Warm and dry. Dermatomal rash at right backside and upper abdomen NEURO: No focal neurological deficits. Results - Labs CBC & Chem 7: 02/25/18 10:27 02/25/18 10:27 Assessment and Plan - Plan 57-year-old female admitted secondary to acute colitis with abdominal pain. Rash has developed, indicative of shingles as an etiology for her pain. Gabapentin, naproxen, and acyclovir initiated. Thus far patient remains dependent on breakthrough narcotics for pain control. Monitor for improvement in pain. Patient could be discharged once pain control is present. Shingles Start antiviral Continue gabapentin Continue naproxen Continue pain management Bacterial colitis Abdominal Pain Possible C. difficile Antigen and DNA are positive and toxin negative Continue p.o. vancomycin Continue IV fluids Continue pain control Continue IV antiemetics Negative abdominal CTA Asacol added as a treatment for abdominal pain/inflammation History of chronic pancreatitis Follow clinically DVT prophylaxis SCDs Discharge planning Discharge will be considered when abdominal pain starts to improve
[2018-02-26] MEDS: Gabapentin 100 MG Capsule PO SCH ×2 (12:37→17:20)
[2018-02-26] MEDS: Acyclovir 800 MG Tablet PO SCH ×3 (13:07→21:37)
--- NOTE | 2018-02-26 14:47 | P.PNGI ---
Subjective Interval history: Sitting up in the bed, rash noted across back around to right upper quadrant, does appear to be shingles and patient states very painful Tolerating diet without any <Sylvie Fonseca - Last Filed: 02/26/18 14:47> Physical Exam Vital signs: Vital Signs 02/25/18 15:57 02/25/18 20:00 02/26/18 00:00 Temperature 98.5 F 98.2 F 98.1 F Pulse Rate 77 76 94 H Respiratory Rate 18 19 17 Blood Pressure 136/82 141/89 H 142/94 H Pulse Oximetry 94 L 96 96 02/26/18 01:23 02/26/18 04:00 02/26/18 07:58 Temperature 97.9 F 97.8 F Pulse Rate 97 H 105 H Respiratory Rate 6 L 19 20 Blood Pressure 122/83 141/78 H Pulse Oximetry 95 96 02/26/18 08:34 02/26/18 09:05 02/26/18 10:19 Temperature Pulse Rate Respiratory Rate 16 16 16 Blood Pressure Pulse Oximetry 02/26/18 11:39 02/26/18 13:08 Temperature 99.1 F Pulse Rate 79 Respiratory Rate 20 16 Blood Pressure 114/67 Pulse Oximetry 95 Intake & Output 02/25/18 02/26/18 02/26/18 18:59 06:59 18:59 Intake Total 958 / 958 240 / 240 Balance 958 / 958 240 / 240 Weight 72.7 kg Intake: Oral 708 / 708 240 / 240 Anesthesia Amount 250 / 250 Other: # Voids 3 4 2 Date of Last Bowel Movement 02/24/18 02/25/18 02/25/18 # Bowel Movements 1 3 1 - Constitutional mild distress, thin, cooperative, agitated - Routine HEENT Exam Head: Present: normocephalic ENT: Present: mucous membranes moist - Routine Respiratory Exam Present: accessory muscle use - Routine Cardiovascular Exam Present: S1, S2 - Routine Abdominal Exam Present: soft, normoactive bowel sounds - Routine Skin Exam Present: rash (One-sided right side) <Sylvie Fonseca - Last Filed: 02/26/18 14:47> Vital signs: Vital Signs 02/25/18 15:57 02/25/18 20:00 02/26/18 00:00 Temperature 98.5 F 98.2 F 98.1 F Pulse Rate 77 76 94 H Respiratory Rate 18 19 17 Blood Pressure 136/82 141/89 H 142/94 H Pulse Oximetry 94 L 96 96 02/26/18 01:23 02/26/18 04:00 02/26/18 07:58 Temperature 97.9 F 97.8 F Pulse Rate 97 H 105 H Respiratory Rate 6 L 19 20 Blood Pressure 122/83 141/78 H Pulse Oximetry 95 96 02/26/18 08:34 02/26/18 09:05 02/26/18 10:19 Temperature Pulse Rate Respiratory Rate 16 16 16 Blood Pressure Pulse Oximetry 02/26/18 11:39 02/26/18 13:08 02/26/18 14:59 Temperature 99.1 F Pulse Rate 79 Respiratory Rate 20 16 16 Blood Pressure 114/67 Pulse Oximetry 95 Intake & Output 02/25/18 02/26/18 02/26/18 18:59 06:59 18:59 Intake Total 958 / 958 240 / 240 Balance 958 / 958 240 / 240 Weight 72.7 kg Intake: Oral 708 / 708 240 / 240 Anesthesia Amount 250 / 250 Other: # Voids 3 4 2 Date of Last Bowel Movement 02/24/18 02/25/18 02/25/18 # Bowel Movements 1 3 1 <Maria Del Carmen Kelley - Last Filed: 02/26/18 15:07> Results - Labs CBC & Chem 7: 02/25/18 10:27 02/25/18 10:27 <Sylvie Fonseca - Last Filed: 02/26/18 14:47> - Labs CBC & Chem 7: 02/25/18 10:27 02/25/18 10:27 <Maria Del Carmen Kelley - Last Filed: 02/26/18 15:07> Assessment and Plan (1) Rectal bleeding Status: Acute Code(s): K62.5 - Hemorrhage of anus and rectum (2) Colitis Status: Acute Code(s): K52.9 - Noninfective gastroenteritis and colitis, unspecified - Plan 02/24/2018 Colitis Patient denies any noted bleeding, reports 3 bouts of loose stool. States continued generalized abdominal pain and cramping 02/24/2018 CTA abdomen and pelvis revealed the following findings: 1. Calcific atherosclerotic vascular disease without evidence of aneurysm, stenosis or gross GI bleed. 2. Hepatic steatosis. 02/25/2018, continues with right upper quadrant guarding and abdominal distention. States her BMs x4 today and thin pencil shape Pain management appears to be ineffective for now, continues with C. difficile colitis treatment. Labs reviewed current hemoglobin 11.4, no obvious bleeding and WBC count normal 4.1, will continue to monitor C. difficile colitis symptoms and encourage patient to drink clear liquids as well as full liquids as long as she continues to have pain 02/26/2018 patient has rash right-sided right upper quadrant and into her back which could be related to her uncontrolled pain appears to be shingles Otherwise patient has no nausea no vomiting no obvious bleeding, tolerating diet regular, continue to encourage to be up moving around, motility Colitis noted with gradual improvement. Will follow up in the GI office for colonoscopy in the future Plan Diet regular but encouraged full liquids for now PPI Vancomycin continue for now Bowel regimen Pain management Patient was seen per myself and Dr. Kelley, note was written on his behalf <Sylvie Fonseca - Last Filed: 02/26/18 14:47> (1) Rectal bleeding Status: Acute Code(s): K62.5 - Hemorrhage of anus and rectum (2) Colitis Status: Acute Code(s): K52.9 - Noninfective gastroenteritis and colitis, unspecified - Plan Seen and examined, no diarrhea. Possible shingles could be reason for abdominal pain. On vancomicin <Maria Del Carmen Kelley - Last Filed: 02/26/18 15:07>
[2018-02-26] MEDS: Naproxen 250 MG Tablet PO SCH (21:39)
[2018-02-27] MEDS: HYDROmorphone PF Inj 2 MG/ML Vial IV.PUSH PRN ×4 (01:36→14:09)
[2018-02-27 05:41] LABS: Eos # (Auto) 0.2 th/mm3 (0.0-0.4); Eos % (Auto) 5.1 % (0.0-4.0); Hemoglobin 11.8 gm/dL (11.6-15.3); Lymph # (Auto) 0.7 th/mm3 (1.0-4.8); Lymph % (Auto) 17.6 % (9.0-44.0); Mean Corpuscular HGB Conc 32.7 % (32.0-36.0); Mean Corpuscular Hemoglobin 33.6 pg (27.0-34.0); Mean Corpuscular Volume 102.8 fL (80.0-100.0); Mean Platelet Volume 8.7 fL (7.0-11.0); Mono # (Auto) 0.8 th/mm3 (0.0-0.9); Mono % (Auto) 20.5 % (0.0-8.0); Neut # (Auto) 2.1 th/mm3 (1.8-7.7); Neut % (Auto) 55.8 % (16.0-70.0); Platelet Count 173 th/mm3 (150-450); Red Cell Distribution Width 19.4 % (11.6-17.2); White Blood Count 3.7 th/mm3 (4.0-11.0)
[2018-02-27] MEDS: Acyclovir 800 MG Tablet PO SCH ×3 (05:48→13:39)
[2018-02-27 06:42] LABS: Alanine Aminotransferase 26 U/L (10-53); Albumin 3.1 g/dL (3.4-5.0); Anion Gap 8 meq/L (5-15); Aspartate Aminotransferase 35 U/L (15-37); Blood Urea Nitrogen 5 mg/dL (7-18); Calcium 9.3 mg/dL (8.5-10.1); Chloride 101 meq/L (98-107); Glomerular Filtration Rate Greater Than 89 mL/min (>89); Glucose,Random 111 mg/dL (74-106); Potassium 3.8 meq/L (3.5-5.1); Sodium 139 meq/L (136-145)
[2018-02-27 06:44] LABS: Alkaline Phosphatase 69 U/L (45-117); Total Protein 6.5 g/dL (6.4-8.2)
--- NOTE | 2018-02-27 09:25 | P.DS ---
DS: Providers Date of admission: 02/21/18 04:14 Primary care physician: UNKNOWN Consults: 02/21/18 08:20 Consult to Gastroenterology Routine Consulting Provider: Dot Fenton Reason for Consultation: colitis/ recrtal bleed. Notified:: Office Spoke with:: luis miguel Date Notified:: 02/21/18 Time Notified:: 08:35 Ordering Provider: FRANKLIN DS: Diagnosis Discharge Diagnosis (1) Rectal bleeding: Status: Acute (2) Colitis: Status: Acute (3) Shingles: Status: Acute (4) Chronic pain syndrome: Status: Chronic DS: Summary These are the medical issues addressed during this hospitalization: 57-year-old female admitted secondary to acute colitis with abdominal pain.Patient was admitted for acute colitis and was placed on p.o. vancomycin per GI recommendation despite having C. difficile antigen positive with negative toxins. Supportive care was given during the hospitalization and GI service was consulted. She was placed on Lactinex with improved form stools. In addition she developed acute shingles treated with acyclovir, gabapentin and Roxicodone. She takes chronic oxycodone at home for her chronic pancreatitis and 3 days of oxycodone was prescribed for acute pain upon discharge to home. E force queried. Time Spent with Patient Total time spent providing and/or coordinating discharge services: Less than 30 minutes Quality: VTE Deep Vein Thrombosis/Pulmonary Embolism Present on Admission: No Exam Narrative Exam Narrative: GENERAL: This is a well-nourished, well-developed patient, in no apparent distress. CARDIOVASCULAR: Regular rate and rhythm without murmurs, gallops, or rubs. RESPIRATORY: Clear to auscultation. Breath sounds equal bilaterally. No wheezes , rales, or rhonchi. GASTROINTESTINAL: Abdomen soft, non-tender, nondistended. Normal active bowel sounds MUSCULOSKELETAL: Extremities without clubbing, cyanosis, or edema. NEURO: Alert & Oriented x4 to person, place, time, situation. Moves all ext x4 Skin: reddish erythematous vesicles/papules mid right abd through lateral and mid trunk with dermatone distribution DS: Data Labs on day of discharge: Labs from last 24 hours 02/27/18 02/27/18 04:05 04:05 WBC 3.7 L RBC 3.50 L Hgb 11.8 Hct 36.0 MCV 102.8 H MCH 33.6 MCHC 32.7 RDW 19.4 H Plt Count 173 MPV 8.7 Neut % (Auto) 55.8 Lymph % (Auto) 17.6 [place] % (Auto) 20.5 H Eos % (Auto) 5.1 H Baso % (Auto) 1.0 Neut # (Auto) 2.1 Lymph # (Auto) 0.7 L [place] # (Auto) 0.8 Eos # (Auto) 0.2 Baso # (Auto) 0.0 WBC Differential . Differential Comment Auto diff final Sodium 139 Potassium 3.8 Chloride 101 Carbon Dioxide 30.0 Anion Gap 8 BUN 5 L Creatinine 0.65 Estimated GFR Greater than 89 Random Glucose 111 H Calcium 9.3 Total Bilirubin 0.3 AST 35 ALT 26 Alkaline Phosphatase 69 Total Protein 6.5 Albumin 3.1 L Impressions Chest X-Ray 02/21/18 00:05 CONCLUSION: Negative examination. Abdomen/Pelvis CT 02/21/18 02:51 CONCLUSION: Proximal predominant colitis Cholangiopancreatography MRI 02/22/18 00:00 CONCLUSION: 1. Advanced steatosis. 2. Status post cholecystectomy. 3. No evidence of biliary obstructive disease or common bile duct stones. Abdomen/Pelvis CTA 02/24/18 00:00 CONCLUSION: 1. Calcific atherosclerotic vascular disease without evidence of aneurysm, stenosis or gross GI bleed. 2. Hepatic steatosis. Discharge Plan Discharge Disposition Patient Disposition: Discharge Home Discharge Condition Condition: Good Discharge Order Discharge Orders: Discharge Order (Routine); Ordered 02/27/18 Ordered By: Lolita Barnes Physicians Team Primary Care Provider: UNKNOWN, Attending Provider: Lolita Barnes Other Providers: Dot Fenton Rxs /Orders / Referrals /Forms Prescriptions: New oxycodone 15 mg Tablet 15 mg PO Q4-6H PRN (Reason: Pain) Qty: 12 RF: 0 acidophilus-sporogenes [Acidophilus Ex Str (L. sporog)] 35 million- 25 million cell Tablet 1 tab PO TID Qty: 15 RF: 0 vancomycin 500 mg Recon Soln 250 mg PO QID Qty: 40 RF: 0 acyclovir 800 mg Tablet 800 mg PO 5 TIMES A DAY Qty: 35 RF: 0 gabapentin 100 mg Capsule 200 mg PO TID Qty: 21 RF: 0 Continue ondansetron 8 mg Tablet,Disintegrating 8 mg PO TID PRN (Reason: Nausea) RF: 0 lorazepam 0.5 mg Tablet 0.5 mg PO BID PRN (Reason: Anxiety) RF: 0 pantoprazole 40 mg Tablet,Delayed Release (Dr/Ec) 40 mg PO DAILY RF: 0 zolpidem 10 mg Tablet 1 tab PO HS PRN (Reason: Insomnia) RF: 0 fentanyl 25 mg OTHER DIRECTED PRN (Reason: Pain) RF: 0 promethazine [Phenergan] 25 mg suppository 25 mg NV PRN PRN (Reason: nausea and vomiting) RF: 0 Referrals: UNKNOWN, [Primary Care Provider] - See Instructions (Please call [facility] to schedule appt. [facility] [id number] ) Discharge Instructions Patient Printed Instructions: Colonoscopy (DC) Post Discharge Care Plan Care Plan Goals: Your Health Problems: colitis, shingles Goals to Promote Your Health: * To prevent worsening of your condition * To maintain your health at the optimal level Directions to Meet Your Goals: * Take your medications as prescribed * Follow your dietary instruction * Follow activity as directed * Keep your appointments as scheduled * Take your immunizations and boosters as scheduled * If your symptoms worsen call your PCP * If no PCP go to Urgent Care or Emergency Room Smoking is dangerous to your health. Avoid second hand smoke. You may reach the 24-hour crisis hotline for domestic abuse at . Discharge Interventions Interventions: Discharge Planning - Case Management Last Done: 02/23/18 11:19 Status ED Status: Left Department
[2018-02-27] MEDS: Naproxen 250 MG Tablet PO SCH (09:40)
[2018-02-27] MEDS: Pantoprazole Inj 40 MG Vial IV.PUSH SCH (09:40)
[2018-02-27] MEDS: Lactobacillus Acidophilus/L. Spores Tablet PO SCH ×2 (09:40→12:00)
[2018-02-27] MEDS: Mesalamine 800 MG Tablet DR PO SCH ×2 (09:40→12:00)
[2018-02-27] MEDS: Gabapentin 100 MG Capsule PO SCH ×2 (09:40→12:00)
[2018-02-27] MEDS: Sodium Chloride 0.9% 2 ML Flush BID IV.FLUSH SCH (09:41)
[2018-02-27] MEDS: LORazepam 0.5 MG Tablet PO PRN (13:39)
== END 2018-02-27 15:33 | disposition home or self-care (01) ==
LOC: NEPC 19:01 → NEDA 02-21 04:14 → INTOOBSV 02-21 04:14 → NEDA 02-21 13:00 → N05 02-21 13:13
PROVIDERS: ADMIT Family Medicine; ATTEND Family Medicine
PROC: COLONOS (2018-02-22 08:50)